=== PATIENT | female | born 1975 | race African-American/Black ===

== ENCOUNTER 2020-03-10 20:29 | Inpatient (IN) | payer MEDICARE, MEDICAID ==
[~2020-03-10] VITALS: Ht 154.9 cm; Wt 59.0 kg
[2020-03-11] VITALS (10 sets, daily range): BP systolic 103–144; BP diastolic 55–71
[2020-03-11] MEDS ORDERED: Albuterol 90mcg Inhaler 8gm INH PRN (00:45)
[2020-03-11] MEDS ORDERED: MORPHINE SULFAT60 M4 PO (01:16)
[2020-03-11] MEDS ORDERED: FOLIC ACID1 MG ORAL (01:16)
[2020-03-11] MEDS ORDERED: Cefepime 1gm vial ONE (01:49)
[2020-03-11] MEDS: DiphenhydrAMINE 50mg/ml Inj IVP PRN ×4 (01:55→21:28)
[2020-03-11] MEDS ORDERED: Cefepime HCl 1 GM in D5W 55 ML IVPB SCH (02:00)
--- NOTE | 2020-03-11 04:55 | NUR ---
NURSE NOTES: Received a patient as direct admit from [facility] transported by ambulance on [facility] with admitting diagnosis of sickle cell crisis and infected port-a-cath. She also is covid positive. Pt is alert, oriented x4 and ambulates steady. With port-a-cath on left upper chest per patient was placed about a year and a half ago. With IV access on the right forearm g. 22 saline locked. Report received by Charge nurse from [facility]. Belongings checked, patient wanted to keep her valuables at bedside. Med recon done. Patient wanted to get medicated for pain. Spoke with Dr. Fernandez, admission orders obtained and carried out. Per Dilmarcosid may be given IV push until pharmacy opens in AM and switch to IV piggy back. Charge nurse made aware. Oriented patient to the room. Placed on isolation precautions. Instructed patient to use call light for assistance. Bed in lowest and lock engaged. Will monitor.
[2020-03-11] MEDS ORDERED: Sterile Water Irrig 1000ml IRRIG ONE (06:00)
[2020-03-11] MEDS: Heparin 5000 units/ml inj SUBQ SCH ×3 (06:00→21:39)
[2020-03-11] MEDS ORDERED: HYDROmorphone 2 MG in NS 55ml IVPB PRN (07:30)
--- NOTE | 2020-03-11 07:38 | NUR ---
NURSE NOTES: Patient received from TRICE Abdi. Patient awake in bed, alert and oriented x 4, no SOB, bed in lowest position with breaks engaged and alarm on, denies any pain at this time, IV line present, on room air, on covid 19 isolation, THADDEUS kaden cath in place, pt is to receive blood transfusion today but per electronic scanner operator, unable to find vein for blood draw by electrician outside, will ff up, will continue to monitor and proceed with plan of care, call light within reach.
--- NOTE | 2020-03-11 07:42 | NUR ---
NURSE HAND-OFF: Important Events on Shift: admission, hardstick, pain mgt Patient Status: Diet: regular Pending Orders: Pending Results/Labs: Pending MD notification: Latest Vital Signs: Temperature 98.8 , Pulse 80 , B/P 103 /61 , Respiratory Rate 17 , O2 SAT 99 , , O2 Flow Rate 2.0 . Vital Sign Comment: Latest Whitt Fall Score: 35 Fall Risk: Medium Risk Safety Measures: Call light Within Reach, Bed Alarm Zone 1, Side Rails Side Rails x2, Bed position Low and Locked. Fall Precautions: Yellow Socks Report given to TRICE Govea.
--- NOTE | 2020-03-11 09:24 | Consultation ---
History of Present Illness General Date patient seen: Mar 11, 2020 Time patient seen: 12:21 Chief Complaint: Sickle cell crisis, port infection Referring physician: PCP Reason for Consultation: Infection Present Illness HPI 44yo F who p/w sickle cell pain crisis, c/f port infection for which ID is consulted. Allergies: Coded Allergies: No Known Allergies (Unverified , 03/11/20) Medication History Scheduled Folic Acid* (Folic Acid*), 1 MG ORAL DAILY, (Reported) Scheduled PRN Morphine Sulfate (Morphine Sulfate ER), 60 MG PO EVERY 12 HOURS PRN for Pain Scale (6-10), (Reported) Patient History Healthcare decision maker Resuscitation status Advanced Directive on File Review of Systems ROS Narrative 10-point ROS neg except as noted in HPI Physical Exam Physical Exam Narrative Gen: NAD HEENT: NCAT Pulm: BL chest rise on RA Abd: Non-distended Ext: No c/c/e Skin: No visible rashes Neuro: Awake, alert, interactive Lines: Chest Port non-TTP Last 24 Hour Vital Signs Date Time Temp Pulse Resp B/P (MAP) Pulse Ox O2 Delivery O2 Flow Rate FiO2 03/11/20 08:00 97.8 75 18 144/55 (84) 99 03/11/20 04:00 98.8 80 17 103/61 (75) 99 03/11/20 00:10 Nasal Cannula 2.0 03/11/20 00:00 96.8 89 17 127/71 (89) 100 Intake and Output 03/10/20 03/11/20 19:00 07:00 Intake Total 150 ml Balance 150 ml Intake Oral 150 ml # Voids 2 # Bowel Movements 1 Height (Feet): 5 Height (Inches): 2.00 Weight (Pounds): 132 Medications Current Medications Medications (Trade) Dose Ordered Sig/Baljeet Route PRN Reason Start Time Stop Time Status Last Admin Dose Admin Acetaminophen (Tylenol) 650 mg Q6H PRN ORAL Temp >100.5/ mild pain (1-3) 03/11/20 00:45 04/10/20 00:44 Albuterol Sulfate (Proventil MDI) 2 puff Q4H PRN INH Shortness of Breath 03/11/20 00:45 06/09/20 00:44 Cefepime HCl 1 gm/ Dextrose 55 ml @ 110 mls/hr Q12H IVPB 03/11/20 02:00 03/18/20 01:59 03/11/20 02:15 Chlorhexidine Gluconate (Tatiana-Hex 2%) 1 applic BEDTIME TOPIC 03/11/20 21:00 06/09/20 20:59 Diphenhydramine HCl (Benadryl) 50 mg Q6H PRN IVP Itching 03/11/20 00:45 04/10/20 00:44 03/11/20 08:23 Heparin Sodium (Porcine) (Heparin 5000 units/ml) 5,000 units EVERY 8 HOURS SUBQ 03/11/20 06:00 04/25/20 05:59 Hydromorphone HCl 2 mg/Sodium Chloride 56 ml @ 224 mls/hr Q4H PRN IVPB Moderate Pain (Pain Scale 4-6) 03/11/20 07:30 03/18/20 07:29 Hydromorphone HCl 4 mg/Sodium Chloride 57 ml @ 228 mls/hr Q4H PRN IVPB Severe Pain (Pain Scale 7-10) 03/11/20 07:30 03/18/20 07:29 Ondansetron HCl (Zofran) 4 mg EVERY 4 HOURS PRN IVP Nausea & Vomiting 03/11/20 00:45 04/10/20 00:44 Vancomycin HCl (Vanco pharmacy to dose) 1 ea DAILY PRN MISC Per rx protocol 03/11/20 00:45 04/10/20 00:44 Vancomycin HCl 1 gm/Dextrose 275 ml @ 183.708 mls/hr Q24H IVPB 03/11/20 21:00 03/16/20 20:59 Assessment/Plan Assessment/Plan: 44yo F with: Acinetobacter baumanii bacteremia Port infection, dx'd by her Heme/onc doctor at [facility], Dr. Sampson Lazaro (I spoke with him on the phone to obtain the following results) 01/07 BCx Acinetobacter pitti S-bactrim, levoflox, meropenem, gent, amikacin Was on levoflox then bactrim for this 02/05 BCx Acinetobacter baumanni complex 03/02 BCx Acinetobacter baumanni, S-amikacin, ant, minocycline Was on IV abx for this, then on minocycline COVID pneumonia Satting well on RA Afebrile 2/2 COVID PCR positive at [facility] neg CXR: Patchy bilateral infiltrates. Findings related to multifocal pneumonia. Clinical correlation and follow-up recommended. Sickle cell disease Anemia to 5s Plan: Stop empiric vanco/cefepime #1 Start meropenem to target Acinetobacter in prior BCx from [facility] Port needs removal DOROTHY given recurrent bacteremia with resistant organism - planning to remove today per RN Will need line holiday prior to insertion of any new permanent lines No current tx for COVID indicated given satting well on RA HIV screen F/u BCx BCx in AM after line removed TTE screening given recurrent bacteremia Monitor CBC/CMP Monitor temp curve, hemodynamics Monitor resp status COVID isolation D/w RN Thank you for this consult. [facility] will continue to follow. Rupali Herron M.D. Mar 11, 2020 09:24
--- NOTE | 2020-03-11 11:58 | History & Physical ---
History and Physical History & Physicial Dictated for Int Med-Dr Fernandez no. [id number] Roberth Swain MD Mar 11, 2020 11:58
--- NOTE | 2020-03-11 12:18 | Diagnostic Imaging Report ---
Indication: Cough Technique: XRAY Chest 1v Comparison: None Findings: Heart is enlarged. Mediastinal contours are sharp. There is an indwelling left chest wall Mediport with catheter tip at the cavoatrial junction. There are patchy bilateral infiltrates. No significant pleural effusion. No pneumothorax. No appreciable acute osseous abnormality. Impression: Cardiomegaly and indwelling left chest wall Mediport. Patchy bilateral infiltrates. Findings related to multifocal pneumonia. Clinical correlation and follow-up recommended.
--- NOTE | 2020-03-11 12:21 | Pre-Procedure Note/Attestation ---
Pre-Procedure Note/Attestation Complete Prior to Procedure Planned Procedure: left Procedure Narrative: removal of infected left chest wall port a cath Indications for Procedure Pre-Operative Diagnosis: infected left chest wall port a cath Attestation I attest that I discussed the nature of the procedure; its benefits; risks and complications; and alternatives (and the risks and benefits of such alternatives), prior to the procedure, with the patient (or the patient's legal community engagement representative). I attest that, if there was a reasonable possibility of needing a blood transfusion, the patient (or the patient's legal community engagement representative) was given the [facility] standardized written summary, pursuant to the [place] Blood Safety Act ([place] Health and Safety Code # 1645, as amended). I attest that I re-evaluated the patient just prior to the surgery and that there has been no change in the patient's H&P, except as documented below: David Farah Mar 11, 2020 12:21
--- NOTE | 2020-03-11 12:44 | History and Physical Report ---
DATE OF ADMISSION: 03/10/2020 CHIEF COMPLAINT: The patient is a 44-year-old female with history of sickle cell disease who presents with a chief complaint of infected Vedo-V-Racomkyl. HISTORY OF PRESENT ILLNESS: The patient has an approximate 2-week history of fevers and chills. The patient also had runny nose and body aches. The patient has a left Port-A-Cath in the chest wall for sickle cell treatment. The patient states that she was diagnosed with left Port-A-Cath infection. The patient has been treated as an outpatient with oral Bactrim. This was discontinued. The patient was then on what she thinks was either clindamycin or doxycycline. The patient has been treated by her primary care physician as an outpatient. The patient has refused to go to the hospital secondary to fear of elisa COVID-19. The patient initially presented to [facility] emergency room. The patient was found to be COVID-19 positive. The patient was transferred to [facility] for insurance purposes. The patient is admitted with infected Port-A-Cath of the left chest wall and COVID-19 positive. REVIEW OF SYSTEMS: CONSTITUTIONAL: The patient denies weight loss or weight gain. The patient complains of subjective fevers and chills as above. HEENT: The patient denies ear or throat pain. The patient denies headache. CARDIOVASCULAR: The patient denies palpitations or chest pain. CHEST: The patient denies wheeze or shortness of breath. ABDOMINAL: The patient denies nausea, vomiting, diarrhea, or constipation. GENITOURINARY: The patient denies dysuria or increased frequency of urination. NEUROMUSCULAR: The patient denies seizures or generalized weakness. PAST MEDICAL HISTORY: Significant for: 1. Sickle cell disease. 2. Sickle cell anemia. PAST SURGICAL HISTORY: The patient denies. CURRENT MEDICATIONS: 1. Folic acid 1 mg one tablet p.o. daily. 2. Morphine sulfate extended release 60 mg p.o.q.12 h. ALLERGIES: Bactrim reported as an allergy; however, patient states she was recently on Bactrim. SOCIAL HISTORY: The patient is single. The patient denies tobacco or alcohol use. PHYSICAL EXAMINATION: VITAL SIGNS: Temperature 98.4, respirations 18, pulse 105, blood pressure 120/71. GENERAL: The patient is well-developed and well-nourished female, in no apparent distress. HEENT: Eyes, pupils are equal and responsive to light and accommodation. Extraocular movements are intact. NECK: Supple without lymphadenopathy. CHEST: Lungs are clear to auscultation bilaterally without wheezes or rales. CARDIOVASCULAR: Regular rate. S1 and S2 are normal without murmurs, rubs, or gallops. ABDOMEN: Soft, nontender, nondistended. Positive bowel sounds. No evidence of hepatosplenomegaly. Currently, no rebound or guarding noted. EXTREMITIES: Negative for clubbing, cyanosis, or edema. RECTAL: Not performed. GENITAL: Not performed. NEUROLOGIC: Cranial nerves II through XII are grossly intact without focal deficits. Motor strength is 5/5 bilaterally. Deep tendon reflexes 2+ plantar. LABORATORY STUDIES: WBC 9.3, hemoglobin 5.2, hematocrit 16.7, platelets 352,000. Sodium 140, potassium 4.2 chloride 111, CO2 23, BUN 16, creatinine 1.43, glucose 80. Qualitative COVID-19 was positive at [place]. ASSESSMENT: This is a 44-year-old female: 1. Infected Port-A-Cath. 2. COVID-19 positive. 3. Severe sickle cell anemia. 4. Sickle cell crisis. TREATMENT: 1. Line sepsis. An Infectious Diseases consultation has been obtained with . The patient has been started empirically on intravenous vancomycin and cefepime. Follow recommendations of Infectious Diseases. Blood cultures are pending. The patient will require Port-A-Cath to be removed during this hospitalization. 2. Severe sickle cell anemia/sickle cell crisis. A Hematology/Oncology consultation has been obtained with Dr. Horne. The patient is currently receiving intravenous Dilaudid for pain control. Roberth Swain M.D. DR: Tyrone JOB#: [id number] CC:
--- NOTE | 2020-03-11 13:46 | Consultation ---
History of Present Illness General Date patient seen: Mar 11, 2020 Present Illness HPI Is a very pleasant 44-year-old female with sickle cell disease who presented to outside facility complaining of high fevers overnight recently noted to have infected Port-A-Cath as her primary national sales director from [facility]. Patient was transferred to [facility] for further care management given her insurance. Surgery was called to evaluate assist with care. Patient seen, [facility] [place], chart reviewed. Patient states that she has had sickle cell symptoms worsening. Times had multiple Port-A-Cath and IVs and currently cannot get peripheral lines anymore therefore Port-A-Cath was placed not too long ago. States blood cultures were taken from peripheral and the port and was identified to be growing from the Port-A-Cath and was recommended to have it removed. Recent significant and fevers and came in for evaluation. Seen by ID cultures were reviewed Case was discussed. Plan for port removal. Allergies: Coded Allergies: SULFAMETHOXAZOLE (Verified Allergy, Unknown, hives, 03/11/20) TRIMETHOPRIM (Verified Allergy, Unknown, hives, 03/11/20) COVID-19 Screening Contact w/high risk pt: Yes Experienced COVID-19 symptoms?: Yes Coronavirus symptoms experienc: Fever (T>100.4F or >38C), Runny Nose, Muscle or Body Aches Medication History Scheduled Folic Acid* (Folic Acid*), 1 MG ORAL DAILY, (Reported) Scheduled PRN Morphine Sulfate (Morphine Sulfate ER), 60 MG PO EVERY 12 HOURS PRN for Pain Scale (6-10), (Reported) Patient History History Provided By: Patient, Medical Record, PMD Healthcare decision maker Resuscitation status Advanced Directive on File Past Medical/Surgical History Past Medical/Surgical History: (1) Sickle cell crisis (2) Sickle cell crisis (3) infected portacath Review of Systems Review of Symptoms General ROS: no weight loss or fever Psychological ROS: no depression or mood changes, no memory loss Ophthalmic ROS: no visual changes or eye irritation ENT ROS: no nasal congestion, hearing loss, dizziness Allergy and Immunology ROS: no allergic symptoms or urticaria Hematological and Lymphatic ROS: no swollen glands, unusual bleeding or bruising Endocrine ROS: no polyuria, polydipsia, weight changes, temperature intolerance Respiratory ROS: no cough, shortness of breath, or wheezing Cardiovascular ROS: no chest pain or dyspnea on exertion Gastrointestinal ROS: denies abdominal pain, bright red blood in stool. Musculoskeletal ROS: no myalgias or arthralgias Neurological ROS: no TIA or stroke symptoms Dermatological ROS: no new or changing skin lesions, rashes or pruritis Physical Exam Physical Exam General appearance: alert, cooperative, no distress, appears stated age Head: Normocephalic, without obvious abnormality, atraumatic Eyes: conjunctivae/corneas clear. PERRL, EOM's intact. Fundi benign Throat: Lips, mucosa, and tongue normal. Teeth and gums normal Neck: supple, symmetrical, trachea midline, no adenopathy, thyroid: not enlarged, symmetric, no tenderness/mass/nodules, no carotid bruit and no JVD Lungs: clear to auscultation bilaterally Heart: regular rate and rhythm, S1, S2 normal, no murmur, click, rub or gallop Abdomen: soft, non-tender. Bowel sounds normal. No masses, no organomegaly Extremities: extremities normal, atraumatic, no cyanosis or edema Pulses: 2+ and symmetric Skin: Skin color, texture, turgor normal. No rashes or lesions Neurologic: Grossly normal Last 24 Hour Vital Signs Date Time Temp Pulse Resp B/P (MAP) Pulse Ox O2 Delivery O2 Flow Rate FiO2 03/11/20 12:00 97.8 93 18 130/69 (89) 100 03/11/20 09:00 Room Air 03/11/20 08:00 97.8 75 18 144/55 (84) 99 03/11/20 04:00 98.8 80 17 103/61 (75) 99 03/11/20 00:10 Nasal Cannula 2.0 03/11/20 00:00 96.8 89 17 127/71 (89) 100 Intake and Output 03/10/20 03/11/20 19:00 07:00 Intake Total 150 ml Balance 150 ml Intake Oral 150 ml # Voids 2 # Bowel Movements 1 Height (Feet): 5 Height (Inches): 1.00 Weight (Pounds): 130 Medications Current Medications Medications (Trade) Dose Ordered Sig/Baljeet Route PRN Reason Start Time Stop Time Status Last Admin Dose Admin Acetaminophen (Tylenol) 650 mg Q6H PRN ORAL Temp >100.5/ mild pain (1-3) 03/11/20 00:45 04/10/20 00:44 Albuterol Sulfate (Proventil MDI) 2 puff Q4H PRN INH Shortness of Breath 03/11/20 00:45 06/09/20 00:44 Chlorhexidine Gluconate (Tatiana-Hex 2%) 1 applic BEDTIME TOPIC 03/11/20 21:00 06/09/20 20:59 Diphenhydramine HCl (Benadryl) 50 mg Q6H PRN IVP Itching 03/11/20 00:45 04/10/20 00:44 03/11/20 08:23 Heparin Sodium (Porcine) (Heparin 5000 units/ml) 5,000 units EVERY 8 HOURS SUBQ 03/11/20 06:00 04/25/20 05:59 Hydromorphone HCl 2 mg/Sodium Chloride 56 ml @ 224 mls/hr Q4H PRN IVPB Moderate Pain (Pain Scale 4-6) 03/11/20 07:30 03/18/20 07:29 Hydromorphone HCl 4 mg/Sodium Chloride 57 ml @ 228 mls/hr Q4H PRN IVPB Severe Pain (Pain Scale 7-10) 03/11/20 07:30 03/18/20 07:29 Meropenem 2 gm/ Sodium Chloride 55 ml @ 110 mls/hr Q8HR IVPB 03/11/20 14:00 03/16/20 13:59 Ondansetron HCl (Zofran) 4 mg EVERY 4 HOURS PRN IVP Nausea & Vomiting 03/11/20 00:45 04/10/20 00:44 Assessment/Plan Problem List: (1) Sickle cell crisis ICD Codes: D57.00 - Hb-SS disease with crisis, unspecified SNOMED: [id number] (2) infected portacath Assessment & Plan: 44-year-old female with infected implanted left chest wall port. Cultures were taken by her national sales director and doctors who are reviewed by her infectious these doctors and discussed me as well. Infection grew from the port. Port does need to be removed patient recent fevers and being somatic. Plan for port removal. Will likely need temporary line in the meantime given her requirements. Long discussion at the bedside with patient. Consent obtained. We will plan for port removal. Thank you will follow recommendations (3) Sickle cell crisis David Farah Mar 11, 2020 13:46
--- NOTE | 2020-03-11 13:51 | NUR ---
NURSE NOTES: IV insertion attempted multiple times, unsuccessful. Also per phlebotomists, pt is a very hard stick and they were unable to get blood. Will continue to ff up and try insertion. is aware.
--- NOTE | 2020-03-11 14:50 | NUR ---
CASE MANAGEMENT:REVIEW TRANSFERRED FROM [facility] PMH: SICKLE CELL DISEASE CC: BODY ACHES. RUNNY NOSE SI: SICKLE CELL CRISIS. INFECTED RACHNA CATH COVID POSITIVE 96.8 89 17 127/71 100% ON 2L/NC IS: CONSENT FOR REMOVAL OF INFECTED LT CHEST RACHNA CATH IV CEFEPIME Q12 IV DILAUDID Q4HRS PRN : TO MED/SURG UNIT
[2020-03-11] MEDS ORDERED: Heparin 1000 units/ml 1ml Vial ONE (15:08)
[2020-03-11] MEDS ORDERED: Bacitracin 50000 Units Vial ONE (15:09)
--- NOTE | 2020-03-11 15:13 | Consultation ---
Consult Note Consult Note DATE OF CONSULTATION: 03/11/2020 CONSULTING PHYSICIAN: Louis Chambers MD. ATTENDING PHYSICIAN: Dr. Fernandez REASON FOR CONSULTATION: COVID-19 pneumonia HISTORY OF PRESENT ILLNESS: This is a 44-year-old female with past medical history of sickle cell disease who was transferred from [place] for insurance purposes. It was reported that she went to [place] for evaluation of runny nose and body aches. She reports having a left Port-A-Cath in the chest wall for sickle cell treatment. Patient states that she was diagnosed with left Port-A-Cath infection. Patient has been treated as an outpatient with oral Bactrim which was discontinued. Patient then was on another antibiotic, either clindamycin or doxycycline. Patient tested positive for COVID-19 when she went to [facility] emergency room. Patient is now admitted with infected Port-A-Cath of the left chest wall and COVID-19. Her chest x-ray is notable for patchy bilateral infiltrates. She reported that she had fever a few days ago. PAST MEDICAL HISTORY: Sickle cell disease, sickle cell anemia MEDICATIONS: Folate acid, morphine ALLERGIES: Sulfamethoxazole/trimethoprim FAMILY HISTORY: Unknown REVIEW OF SYSTEMS: Negative except mentioned in HPI PHYSICAL EXAMINATION: VITAL SIGNS: Blood pressure 130/69, heart rate 93, respiratory rate 18, weight 59 kg, height 2 155 cm General: Patient sitting up in bed getting IV access by a nurse, not in respiratory distress at the moment on room air HEENT: Head exam reveals that the head is normocephalic, atraumatic without deformity or unusual swelling. Right hazy eye CHEST AND LUNGS: Reveals clear, normal, symmetrical breath sounds with no adventitious sounds. CARDIOVASCULAR: Reveals normal S1, S2 without murmurs, rubs, or clicks. ABDOMEN: Soft with no tenderness or organomegaly. RECTAL: Deferred. MUSCULOSKELETAL: There is no tenderness to palpation. Range of motion is normal. NEUROLOGICAL: Alert and oriented x3 , nonfocal LABORATORY DATA: lab data not available at this time. Assessment/Plan 1. COVID-19 pneumonia; COVID-19 positive 03/10/20 at [place] -Patient is currently afebrile and normoxemic on room air -Patient was briefly given low flow oxygen via nasal cannula overnight -Monitor for hypoxia and provide supplemental oxygen as needed -At this time, no indication for specific therapy for COVID-19 2. Sickle cell disease sickle cell anemia -Per primary MD and ID specialist - s/p transfusion 3. Port infection -ID following The care for this patient was discussed with my supervising physician. Time spent for this case was approximately 31 minutes. Lior Hong Mar 11, 2020 15:13
--- NOTE | 2020-03-11 15:17 | Anethesia Preoperative Eval ---
Anesthesia Pre-op PMH/ROS General Date of Evaluation: Mar 11, 2020 Time of Evaluation: 16:00 Anesthesiologist: crys ASA Score: ASA 2 Mallampati Score Class I : Soft palate, uvula, fauces, pillars visible Class II: Soft palate, uvula, fauces visible Class III: Soft palate, base of uvula visible Class IV: Only hard plate visible Mallampati Classification: Class II Surgeon: Sofi Diagnosis: Infected kaden-cath Surgical Procedure: Removal of kaden-cath Anesthesia History: none Social History: alcohol use Family History: no anesthesia problems Allergies: Coded Allergies: SULFAMETHOXAZOLE (Verified Allergy, Unknown, hives, 03/11/20) TRIMETHOPRIM (Verified Allergy, Unknown, hives, 03/11/20) Medications: see eMAR Patient NPO?: Yes NPO Date: Mar 11, 2020 NPO Time: 00:01 Past Medical History Cardiovascular: Denies: HTN, CAD, [place], valve dz, arrhythmia, other Pulmonary: Reports: other - covid positive; Denies: asthma, COPD, [place] Gastrointestinal/Genitourinary: Denies: GERD, CRI, ESRD, other Neurologic/Psychiatric: Denies: dementia, CVA, depression/anxiety, TIA, other Endocrine: Denies: DM, hypothyroidism, steroids, other HEENT: Denies: cataract (L), cataract (R), glaucoma, [place] (L[place] (R), other Hematology/Immune: Reports: anemia; Denies: DVT, bleeding disorder, other Musculoskeletal/Integumentary: Reports: other - sickle cell ; Denies: OA, RA, DJD, DDD, edema PMH Narrative: 1. Infected Port-A-Cath. 2. COVID-19 positive. 3. Severe sickle cell anemia. 4. Sickle cell crisis. Anesthesia Pre-op Phys. Exam Physician Exam Last Vital Signs Date Time Temp Pulse Resp B/P (MAP) Pulse Ox O2 Delivery O2 Flow Rate FiO2 03/11/20 12:00 97.8 93 18 130/69 (89) 100 03/11/20 09:00 Room Air 03/11/20 00:10 2.0 Constitutional: NAD Neurologic: CN 2-12 intact Cardiovascular: RRR Respiratory: CTA Gastrointestinal: S/NT/ND Airway Exam Mallampati Classification 2 Mallampati Score: Class II MO: full ROM: full Dentures: no upper, no lower Anesthesia Pre-op A/P Studies Pre-op Studies: EKG - sr Risk Assessment & Plan Assessment: covid post; preg neg Plan: mac Status Change Before Surgery: No Pre-Antibiotics Drug: declined by surgeon Helen Mccord CRNA Mar 11, 2020 15:17
[2020-03-11] MEDS: NS IVPB PRN ×2 (15:18→20:40)
[2020-03-11] MEDS: HYDROMORPHONE IVPB PRN ×2 (15:18→20:40)
[2020-03-11] MEDS: Meropenem 2 GM in NS 55 ML IVPB SCH ×2 (15:18→21:42)
[2020-03-11] MEDS ORDERED: Midazolam 2mg/2ml Inj ONE (15:27)
[2020-03-11] MEDS ORDERED: Ketamine 500mg/10ml vial ONE (15:27)
[2020-03-11] MEDS ORDERED: Bacitracin Oint 15gm Tube TOPIC ONE (15:40)
[2020-03-11] MEDS ORDERED: Bupivacaine w/Epi 0.25% 50ml vial INJ ONE (16:18)
[2020-03-11] MEDS ORDERED: NS Irrig 1000ml IRRIG ONE (16:18)
--- NOTE | 2020-03-11 16:49 | NUR ---
NURSE NOTES: A recovery coach attempted another blood draw at around 1530 and unsuccessful, dr woodall notified.
--- NOTE | 2020-03-11 16:52 | NUR ---
NURSE NOTES: Pt left for port a cath removal at around 1600 in stable condition. Still no blood draw at this time, per therapeutic case manager Hector, will try again when she gets back to the unit.
--- NOTE | 2020-03-11 16:57 | Brief Operative Note ---
Immediate Post Operative Note Operative Note Pre-op Diagnosis: infected left chest wall port a cath Procedure: 1. removal of infected left chest wall port 2. central venous catheter insertion Post-op Diagnosis: same as pre-op plus - covid + Surgeon: patricia farah Anesthesiologist: meka leyva Anesthesia: local, moderate sedation Specimen: yes Complications: none Condition: stable Fluids: see Estimated Blood Loss: minimal Drains: none Implant(s) used?: No Patricia Farah Mar 11, 2020 16:57
--- NOTE | 2020-03-11 17:08 | Immediate Post-Op Evaluation ---
Immediate Post-Op Evalulation Immediate Post-Op Evalulation Procedure: removal of infected kaden cath Date of Evaluation: Mar 11, 2020 Time of Evaluation: 17:00 IV Fluids: 250 Blood Pressure Systolic: 120 Blood Pressure Diastolic: 70 Pulse Rate: 88 Respiratory Rate: 14 O2 Sat by Pulse Oximetry: 98 Temperature (Fahrenheit): 97.0 Nausea: No Vomiting: No Complications none Patient Status: awake, reacts, patent Hydration Status: adequate Drug: declined Helen Mccord CRNA Mar 11, 2020 17:08
[2020-03-11] MEDS ORDERED: fentaNYL 100 mcg/2 mL IV PRN (17:15)
[2020-03-11] MEDS ORDERED: Metoclopramide 10mg/2ml Inj IVP PRN (17:15)
[2020-03-11] MEDS ORDERED: Hydromorphone 0.5mg/0.5ml inj IVP PRN (17:15)
--- NOTE | 2020-03-11 17:17 | 48 Hour Post Anesthesia Eval ---
Post Anesthesia Evaluation Procedure: removal of infected kaden cath Date of Evaluation: Mar 11, 2020 Time of Evaluation: 17:17 Blood Pressure Systolic: 119 0: 64 Pulse Rate: 70 Respiratory Rate: 14 O2 Sat by Pulse Oximetry: 98 Airway: patent Nausea: No Vomiting: No Hydration Status: adequate Mental Status/LOC: patient returned to baseline Follow-up Care/Observations: na Post-Anesthesia Complications: none Follow-up care needed: N/A Helen Mccord CRNA Mar 11, 2020 17:17
--- NOTE | 2020-03-11 18:14 | Operative Note - Dictated ---
DATE OF OPERATION: 03/11/2020 PREOPERATIVE DIAGNOSES: 1. Infected left chest wall port. 2. COVID positive. 3. Fever. POSTOPERATIVE DIAGNOSES: 1. Infected left chest wall port. 2. COVID positive. 3. Fever. OPERATION PERFORMED: 1. Removal of infected left chest wall implanted port tunnel device. 2. Insertion of right femoral temporary central venous access catheter. ATTENDING SURGEON: David Farah MD. BELLSTAND ATTENDANT: None. ANESTHESIOLOGIST: Helen Mccord CRNA. ANESTHESIA: MAC plus local. ESTIMATED BLOOD LOSS: Minimal. IV FLUIDS: Please see anesthesia records. COMPLICATIONS: None. DRAINS: None. COUNTS: Sponge and needle count correct x2. WOUND CLASSIFICATION: Class 3. SPECIMENS: 1. Infected left chest wall port. 2. Infected left chest wall port capsule. INDICATIONS FOR PROCEDURE: A 44-year-old female with sickle cell disease, who has had multiple lines and ports in the past before. She states she has had ports on the right side, which has been infected recently, not too long ago had a port on the left side placed and has been developing fevers. Blood cultures performed by her primary care physician/treating physician and forest nursery supervisor, who identified bacterial growth from the port and therefore given her fevers it was recommended for removal, and the patient was subsequently scheduled, but unfortunately began to have worsening fevers and went outside facility for evaluation, identified to be COVID positive, transferred to [facility] for care. When the patient was seen, examined, and case was discussed with primary care physician as well as the Infectious Disease doctor and the cultures were reviewed and it was clearly identified that port was infected and given these findings, port removal was indicated and recommended. Furthermore, the patient does not have prophylaxis, prophylaxis was extremely difficult in her where blood draws, anemia, potential transfusion, medications indicated and recommended, therefore, discussed with the patient line placement and plan for temporary central venous catheter insertion with plan for long-term line prior to discharge, but with temporary line holiday given her infected port. Consent was obtained. The patient was scheduled for 03/11/2020. OPERATIVE NOTE: The patient was taken to the operating room and placed on the operating table in supine position. All bony prominences well padded. SCDs placed. Preoperative time-out was taken identifying the patient, procedure, operative staff, and surgical staff. All COVID precautions were taken. Anesthesia was provided by the anesthesiologist. The patient was made significantly comfortable. Prior to removal of the port, we placed a right femoral central venous catheter. Right groin was prepped in the standard surgical fashion. Local anesthetic was infiltrated. The right vein was cannulated without complication on first stick. Good venous flow identified. A guidewire placed over the needle and needle removed. A small skin incision was made around the guidewire and guidewire was left in place. Dilator was used and tract was dilated. Triple-lumen catheter was inserted over the guidewire and guidewire was removed and discarded appropriately. All three ports of the catheter flushed and aspirated appropriately without complication. Catheter was sutured in place. Dressings were applied. The patient tolerated this procedure well without complication. We then turned our attention to the port. The left chest wall port was prepped and draped in standard surgical fashion. Local anesthetic was infiltrated. Prior incision was utilized to make an incision. The port was identified. The port was circumferentially dissected out and clearly identified to have a capsule formed around it and the Prolene sutures were identified. Prolene sutures were cut. Port was removed and pressure was held on the left internal jugular vein until hemostasis identified. A 2-0 Vicryl suture was placed around the port site catheter to ensure no bleeding into the port site cavity. Following this, the capsule was excised in whole and sent to pathology for review along with the port. Hemostasis was obtained with electrocautery. The bed irrigated and suctioned clean. Now, there is a completely new cavity, decision was made to reapproximate. were used and the skin was reapproximated. The skin incision was reapproximated using 4-0 Monocryl subcuticular interrupted suture. Dressings applied. The patient tolerated the procedure well and was taken to postanesthesia care unit in stable condition. David Farah M.D. DR: DC JOB#: [id number] CC:
[2020-03-11 18:15] LABS: HEMATOCRIT 15.8 % (37.0-47.0); MEAN CORPUSCULAR VOLUME 103 FL (80-99); PLATELET COUNT 309 K/UL (150-450); RED BLOOD COUNT 1.53 M/UL (4.20-5.40); RED CELL DISTRIBUTION WIDTH 20.3 % (11.6-14.8); WHITE BLOOD COUNT 15.2 K/UL (4.8-10.8)
--- NOTE | 2020-03-11 18:30 | NUR ---
NURSE NOTES: Digital Strategy Director able to draw blood at 1800, awaiting type and cross results. Pt Hgb level at 5.0 Dr. Fernandez made aware.
[2020-03-11 18:31] LABS: ALANINE AMINOTRANSFERASE 13 U/L (12-78); ALBUMIN 2.3 G/DL (3.4-5.0); ALBUMIN/GLOBULIN RATIO 0.6 (1.0-2.7); ALKALINE PHOSPHATASE 59 U/L (46-116); ANION GAP 6 mmol/L (5-15); ASPARTATE AMINO TRANSFERASE 31 U/L (15-37); BILIRUBIN,TOTAL 1.8 MG/DL (0.2-1.0); BLOOD UREA NITROGEN 10 mg/dL (7-18); CARBON DIOXIDE 24 MMOL/L (21-32); CHLORIDE 111 MMOL/L (98-107); CREATININE 0.9 MG/DL (0.55-1.30); PHOSPHORUS 3.1 MG/DL (2.5-4.9); POTASSIUM 4.2 MMOL/L (3.5-5.1); SODIUM 141 MMOL/L (136-145)
[2020-03-11 18:52] LABS: BILIRUBIN,DIRECT 0.5 MG/DL (0.0-0.3)
--- NOTE | 2020-03-11 19:23 | NUR ---
NURSE HAND-OFF: Important Events on Shift:[pending blood transfusion, pain management, monitoring labs and VS] Patient Status: [stable] Diet: [regular] Pending Orders: [] Pending Results/Labs:[] Pending MD notification:[] Latest Vital Signs: Temperature 97.8 , Pulse 70 , B/P 119 /64 , Respiratory Rate 14 , O2 SAT 98 , Nasal Cannula, O2 Flow Rate 3 . Vital Sign Comment: [] Latest Whitt Fall Score: 35 Fall Risk: Medium Risk Safety Measures: Call light Within Reach, Bed Alarm Zone 1, Side Rails Side Rails x2, Bed position Low and Locked. Fall Precautions: Yellow Socks Report given to [TRICE Don].
[2020-03-11] MEDS ORDERED: Vancomycin 1gm/D5W 275ml IVPB SCH ×2 (21:00)
[2020-03-11] MEDS: Dyna-Hex 2% Top Sol 2oz TOPIC SCH (21:04)
--- NOTE | 2020-03-11 23:35 | NUR ---
NURSE NOTES: 1st unit blood transfusion started 0, current VSS, patient awake and tolerating well.
[2020-03-12] VITALS: BP 115/67
[2020-03-12] MEDS: NS IVPB PRN ×4 (01:28→23:37)
[2020-03-12] MEDS: HYDROMORPHONE IVPB PRN ×4 (01:28→23:37)
[2020-03-12 04:00] VITALS: BP 103/58
[2020-03-12] MEDS: DiphenhydrAMINE 50mg/ml Inj IVP PRN ×4 (05:30→23:37)
[2020-03-12] MEDS: Meropenem 2 GM in NS 55 ML IVPB SCH ×3 (05:30→23:06)
[2020-03-12] MEDS: Heparin 5000 units/ml inj SUBQ SCH ×3 (05:47→23:16)
--- NOTE | 2020-03-12 06:41 | Consultation ---
History of Present Illness General Referring physician: PCP Reason for Consultation: Infection Present Illness Allergies: Coded Allergies: SULFAMETHOXAZOLE (Verified Allergy, Unknown, hives, 03/11/20) TRIMETHOPRIM (Verified Allergy, Unknown, hives, 03/11/20) Medication History Scheduled Folic Acid* (Folic Acid*), 1 MG ORAL DAILY, (Reported) Scheduled PRN Morphine Sulfate (Morphine Sulfate ER), 60 MG PO EVERY 12 HOURS PRN for Pain Scale (6-10), (Reported) Patient History Healthcare decision maker Resuscitation status Advanced Directive on File Physical Exam Last 24 Hour Vital Signs Date Time Temp Pulse Resp B/P (MAP) Pulse Ox O2 Delivery O2 Flow Rate FiO2 03/12/20 06:01 98.9 03/12/20 04:00 98.7 73 20 103/58 (73) 98 03/12/20 01:58 98.9 03/12/20 00:00 98.9 84 18 115/67 (83) 98 03/11/20 21:10 97.8 03/11/20 21:08 Room Air 03/11/20 20:00 99.0 81 18 117/60 (79) 100 03/11/20 17:17 70 14 98 03/11/20 17:12 97.8 84 16 112/63 100 Nasal Cannula 3 03/11/20 17:08 88 14 98 03/11/20 17:02 88 20 118/65 100 Nasal Cannula 3 03/11/20 16:57 89 19 119/64 100 Simple Mask 6 03/11/20 16:52 97.9 89 19 120/70 100 Simple Mask 6 03/11/20 16:07 99.5 03/11/20 16:00 101.7 99 18 132/69 (90) 100 03/11/20 15:48 101.7 03/11/20 12:00 97.8 93 18 130/69 (89) 100 03/11/20 09:00 Room Air 03/11/20 08:00 97.8 75 18 144/55 (84) 99 Intake and Output 03/11/20 03/12/20 19:00 07:00 Intake Total 780 ml Output Total 10 ml Balance 770 ml Intake Oral 480 ml IV Total 300 ml Output Estimated Blood Loss 10 ml # Voids 1 1 Laboratory Tests Test 03/11/20 17:45 White Blood Count 15.2 K/UL (4.8-10.8) H Red Blood Count 1.53 M/UL (4.20-5.40) L Hemoglobin 5.0 G/DL (12.0-16.0) *L Hematocrit 15.8 % (37.0-47.0) L Mean Corpuscular Volume 103 FL (80-99) H Mean Corpuscular Hemoglobin 32.4 PG (27.0-31.0) H Mean Corpuscular Hemoglobin Concent 31.3 G/DL (32.0-36.0) L Red Cell Distribution Width 20.3 % (11.6-14.8) H Platelet Count 309 K/UL (150-450) Mean Platelet Volume 7.2 FL (6.5-10.1) Neutrophils (%) (Auto) % (45.0-75.0) Lymphocytes (%) (Auto) % (20.0-45.0) Monocytes (%) (Auto) % (1.0-10.0) Eosinophils (%) (Auto) % (0.0-3.0) Basophils (%) (Auto) % (0.0-2.0) Differential Total Cells Counted 100 Neutrophils % (Manual) 71 % (45-75) Lymphocytes % (Manual) 24 % (20-45) Monocytes % (Manual) 1 % (1-10) Eosinophils % (Manual) 4 % (0-3) H Basophils % (Manual) 0 % (0-2) Band Neutrophils 0 % (0-8) Platelet Estimate Increased H Platelet Morphology Normal Hypochromasia 3+ Anisocytosis 3+ Sodium Level 141 MMOL/L (136-145) Potassium Level 4.2 MMOL/L (3.5-5.1) Chloride Level 111 MMOL/L (98-107) H Carbon Dioxide Level 24 MMOL/L (21-32) Anion Gap 6 mmol/L (5-15) Blood Urea Nitrogen 10 mg/dL (7-18) Creatinine 0.9 MG/DL (0.55-1.30) Estimat Glomerular Filtration Rate > 60 mL/min (>60) Glucose Level 86 MG/DL (74-106) Calcium Level 7.0 MG/DL (8.5-10.1) L Phosphorus Level 3.1 MG/DL (2.5-4.9) Magnesium Level 1.7 MG/DL (1.8-2.4) L Total Bilirubin 1.8 MG/DL (0.2-1.0) H Direct Bilirubin 0.5 MG/DL (0.0-0.3) H Aspartate Amino Transf (AST/SGOT) 31 U/L (15-37) Alanine Aminotransferase (ALT/SGPT) 13 U/L (12-78) Alkaline Phosphatase 59 U/L (46-116) Total Protein 6.1 G/DL (6.4-8.2) L Albumin 2.3 G/DL (3.4-5.0) L Globulin 3.8 g/dL Albumin/Globulin Ratio 0.6 (1.0-2.7) L Human Chorionic Gonadotropin, Quant 1 mIU/mL (1-6) HIV (1&2) Antibody Rapid Pending Height (Feet): 5 Height (Inches): 1.00 Weight (Pounds): 130 Medications Current Medications Medications (Trade) Dose Ordered Sig/Baljeet Route PRN Reason Start Time Stop Time Status Last Admin Dose Admin Acetaminophen (Tylenol) 650 mg Q6H PRN ORAL Temp >100.5/ mild pain (1-3) 03/11/20 00:45 04/10/20 00:44 03/11/20 15:36 Albuterol Sulfate (Proventil MDI) 2 puff Q4H PRN INH Shortness of Breath 03/11/20 00:45 06/09/20 00:44 Chlorhexidine Gluconate (Tatiana-Hex 2%) 1 applic BEDTIME TOPIC 03/11/20 21:00 06/09/20 20:59 03/11/20 21:04 Diphenhydramine HCl (Benadryl) 50 mg Q6H PRN IVP Itching 03/11/20 00:45 04/10/20 00:44 03/12/20 05:30 Heparin Sodium (Porcine) (Heparin 5000 units/ml) 5,000 units EVERY 8 HOURS SUBQ 03/11/20 06:00 04/25/20 05:59 03/12/20 05:47 Hydromorphone HCl 2 mg/Sodium Chloride 56 ml @ 224 mls/hr Q4H PRN IVPB Moderate Pain (Pain Scale 4-6) 03/11/20 07:30 03/18/20 07:29 03/12/20 05:31 Hydromorphone HCl 4 mg/Sodium Chloride 57 ml @ 228 mls/hr Q4H PRN IVPB Severe Pain (Pain Scale 7-10) 03/11/20 07:30 03/18/20 07:29 03/12/20 01:28 Meropenem 2 gm/ Sodium Chloride 55 ml @ 110 mls/hr Q8HR IVPB 03/11/20 14:00 03/16/20 13:59 03/12/20 05:30 Ondansetron HCl (Zofran) 4 mg EVERY 4 HOURS PRN IVP Nausea & Vomiting 03/11/20 00:45 04/10/20 00:44 Assessment/Plan Assessment/Plan: Hematology Consultation DATE OF CONSULTATION: 03/12/2020 ATTENDING PHYSICIAN: Dr. Fernandez [facility]: Sickle cell anemia HISTORY OF PRESENT ILLNESS: This is a 44-year-old female with past medical history of sickle cell disease who was transferred from [place] for insurance purposes. It was reported that she went to [place] for evaluation of runny nose and body aches. She reports having a left Port-A-Cath in the chest wall for sickle cell treatment. Patient states that she was diagnosed with left Port-A-Cath infection. Patient has been treated as an outpatient with oral Bactrim which was discontinued. Patient then was on another antibiotic, either clindamycin or doxycycline. Sofi has removed portocath. Patient tested positive for COVID-19 when she went to [facility] emergency room. Patient is now admitted with infected Port-A-Cath of the left chest wall and COVID-19. Her chest x-ray is notable for patchy bilateral infiltrates. She reported that she had fever a few days ago. PAST MEDICAL HISTORY: Sickle cell disease, sickle cell anemia MEDICATIONS: Folate acid, morphine ALLERGIES: Sulfamethoxazole/trimethoprim FAMILY HISTORY: Unknown REVIEW OF SYSTEMS: Negative except mentioned in HPI PHYSICAL EXAMINATION: VITAL SIGNS: Blood pressure 130/69, heart rate 93, respiratory rate 18, weight 59 kg, height 2 155 cm General: Patient sitting up in bed getting IV access by a nurse, not in respiratory distress at the moment on room air HEENT: Head exam reveals that the head is normocephalic, atraumatic without deformity or unusual swelling. Right hazy eye CHEST AND LUNGS: Reveals clear, normal, symmetrical breath sounds with no adventitious sounds. CARDIOVASCULAR: Reveals normal S1, S2 without murmurs, rubs, or clicks. ABDOMEN: Soft with no tenderness or organomegaly. RECTAL: Deferred. MUSCULOSKELETAL: There is no tenderness to palpation. Range of motion is normal. NEUROLOGICAL: Alert and oriented x3 , nonfocal LABORATORY DATA: reviewed Imaging: noted Assessment/Plan # Sickle cell disease sickle cell anemia --> hgb 5 --> s/p transfusion --> will obtain anemia panel --> for sickle cell, r/o hemolysis, confirm sickle cell and obtain ldh, hapto, retic --> transfuse as needed --> outpatient heme --> dilaudid for pain control # Leukocytosis due to COVID-19 pneumonia; COVID-19 positive 03/10/20 at [place] -> Patient is currently afebrile and normoxemic on room air --> Patient was briefly given low flow oxygen via nasal cannula overnight --> Monitor for hypoxia and provide supplemental oxygen as needed --> per pulm --> wbc 16 # Port infection --> ID following --> Carlosmini has removed # Dehydration --> goal euvolemia # Dvt ppx heparin sq Appreciate consultation and dw rn Redd Horne MD Mar 12, 2020 06:41
--- NOTE | 2020-03-12 07:30 | NUR ---
NURSE NOTES: Patient is in bed asleep. Stable. Breathing is even and unlabored. No visible signs of distress noted. All safety measures provided. Patient is in bed in locked and lowest position. Will continue plan of care.
[2020-03-12 08:00] VITALS: BP 113/60
--- NOTE | 2020-03-12 08:28 | Surgery Progress Note ---
Surgery Progress Note Subjective Procedure Performed 1. removal of infected left chest wall port 2. central venous catheter insertion Additional Comments Febrile overnight HD stable labs noted comfortable appearing no n/v dressings changed Case discussed with ID. plan for IV Abx for next few days given micro. then will remove femoral central line and place PICC Monday Objective Last 24 Hour Vital Signs Date Time Temp Pulse Resp B/P (MAP) Pulse Ox O2 Delivery O2 Flow Rate FiO2 03/12/20 06:01 98.9 03/12/20 04:00 98.7 73 20 103/58 (73) 98 03/12/20 01:58 98.9 03/12/20 00:00 98.9 84 18 115/67 (83) 98 03/11/20 21:10 97.8 03/11/20 21:08 Room Air 03/11/20 20:00 99.0 81 18 117/60 (79) 100 03/11/20 17:17 70 14 98 03/11/20 17:12 97.8 84 16 112/63 100 Nasal Cannula 3 03/11/20 17:08 88 14 98 03/11/20 17:02 88 20 118/65 100 Nasal Cannula 3 03/11/20 16:57 89 19 119/64 100 Simple Mask 6 03/11/20 16:52 97.9 89 19 120/70 100 Simple Mask 6 03/11/20 16:07 99.5 03/11/20 16:00 101.7 99 18 132/69 (90) 100 03/11/20 15:48 101.7 03/11/20 12:00 97.8 93 18 130/69 (89) 100 03/11/20 09:00 Room Air I&O Intake and Output 03/11/20 03/12/20 19:00 07:00 Intake Total 780 ml Output Total 10 ml Balance 770 ml Intake Oral 480 ml IV Total 300 ml Output Estimated Blood Loss 10 ml # Voids 1 1 Dressing: dry Wound: clean Cardiovascular: RSR Respiratory: clear Abdomen: soft, non-tender, present bowel sounds Extremities: no edema, no tenderness, no cyanosis Laboratory Tests Test 03/11/20 17:45 White Blood Count 15.2 K/UL (4.8-10.8) H Red Blood Count 1.53 M/UL (4.20-5.40) L Hemoglobin 5.0 G/DL (12.0-16.0) *L Hematocrit 15.8 % (37.0-47.0) L Mean Corpuscular Volume 103 FL (80-99) H Mean Corpuscular Hemoglobin 32.4 PG (27.0-31.0) H Mean Corpuscular Hemoglobin Concent 31.3 G/DL (32.0-36.0) L Red Cell Distribution Width 20.3 % (11.6-14.8) H Platelet Count 309 K/UL (150-450) Mean Platelet Volume 7.2 FL (6.5-10.1) Neutrophils (%) (Auto) % (45.0-75.0) Lymphocytes (%) (Auto) % (20.0-45.0) Monocytes (%) (Auto) % (1.0-10.0) Eosinophils (%) (Auto) % (0.0-3.0) Basophils (%) (Auto) % (0.0-2.0) Differential Total Cells Counted 100 Neutrophils % (Manual) 71 % (45-75) Lymphocytes % (Manual) 24 % (20-45) Monocytes % (Manual) 1 % (1-10) Eosinophils % (Manual) 4 % (0-3) H Basophils % (Manual) 0 % (0-2) Band Neutrophils 0 % (0-8) Platelet Estimate Increased H Platelet Morphology Normal Hypochromasia 3+ Anisocytosis 3+ Sodium Level 141 MMOL/L (136-145) Potassium Level 4.2 MMOL/L (3.5-5.1) Chloride Level 111 MMOL/L (98-107) H Carbon Dioxide Level 24 MMOL/L (21-32) Anion Gap 6 mmol/L (5-15) Blood Urea Nitrogen 10 mg/dL (7-18) Creatinine 0.9 MG/DL (0.55-1.30) Estimat Glomerular Filtration Rate > 60 mL/min (>60) Glucose Level 86 MG/DL (74-106) Calcium Level 7.0 MG/DL (8.5-10.1) L Phosphorus Level 3.1 MG/DL (2.5-4.9) Magnesium Level 1.7 MG/DL (1.8-2.4) L Total Bilirubin 1.8 MG/DL (0.2-1.0) H Direct Bilirubin 0.5 MG/DL (0.0-0.3) H Aspartate Amino Transf (AST/SGOT) 31 U/L (15-37) Alanine Aminotransferase (ALT/SGPT) 13 U/L (12-78) Alkaline Phosphatase 59 U/L (46-116) Total Protein 6.1 G/DL (6.4-8.2) L Albumin 2.3 G/DL (3.4-5.0) L Globulin 3.8 g/dL Albumin/Globulin Ratio 0.6 (1.0-2.7) L Human Chorionic Gonadotropin, Quant 1 mIU/mL (1-6) HIV (1&2) Antibody Rapid Pending Plan Problems: (1) Sickle cell crisis (2) infected portacath Assessment & Plan: 44-year-old female with infected implanted left chest wall port. Cultures were taken by her instructional technology coordinator and doctors who are reviewed by her infectious these doctors and discussed me as well. Infection grew from the port. Port does need to be removed patient recent fevers and being somatic. Plan for port removal. Will likely need temporary line in the meantime given her requirements. Long discussion at the bedside with patient. Consent obtained. We will plan for port removal. Thank you will follow recommendations (3) Sickle cell crisis David Farah Mar 12, 2020 08:28
--- NOTE | 2020-03-12 09:04 | 48 Hour Post Anesthesia Eval ---
Post Anesthesia Evaluation Procedure: removal of infected kaden cath Date of Evaluation: Mar 12, 2020 Time of Evaluation: 09:03 Blood Pressure Systolic: 104 0: 56 Pulse Rate: 76 Respiratory Rate: 20 Temperature (Fahrenheit): 97.7 O2 Sat by Pulse Oximetry: 96 Airway: patent Nausea: No Vomiting: No Pain Intensity: 3 Hydration Status: adequate Cardiopulmonary Status: stable Mental Status/LOC: patient returned to baseline Follow-up Care/Observations: n/a Post-Anesthesia Complications: none Follow-up care needed: N/A Vamsi Rosales MD Mar 12, 2020 09:04
--- NOTE | 2020-03-12 09:05 | Infectious Diseases Prog Note ---
Assessment/Plan 44yo F with: Acinetobacter baumanii bacteremia, CLABSI Afebrile Leukocytosis to 15 Port infection, dx'd by her Heme/onc doctor at [facility], Dr. Sampson Lazaro (I spoke with him on the phone to obtain the following results) 01/07 BCx Acinetobacter pitti S-bactrim, levoflox, meropenem, gent, amikacin Was on levoflox then bactrim for this 02/05 BCx Acinetobacter baumanni complex 03/02 BCx Acinetobacter baumanni, S-amikacin, ant, minocycline Was on IV abx for this, then on minocycline 03/11 Port removal, R fem central line placed for access TTE neg for vegetations 03/12 BCx ordered COVID pneumonia Satting well on RA Afebrile 03/10 COVID PCR positive at [place] Flu neg CXR: Patchy bilateral infiltrates. Findings related to multifocal pneumonia. Clinical correlation and follow-up recommended. Sickle cell disease Anemia to 5s Plan: Cont meropenem #2 to target Acinetobacter in prior BCx from [facility] BCx today to ensure clearance of bacteremia Will need at least 48 hour line holiday prior to placement of new line, since has fem central line in place will tentatively plan for new PICC on Monday if BCx from 03/12 are neg and pt remains clinically stable No current tx for COVID indicated given satting well on RA F/u HIV screen F/u BCx Monitor CBC/CMP Monitor temp curve, hemodynamics Monitor resp status COVID isolation D/w RN Thank you for this consult. [facility] will continue to follow. Subjective Allergies: Coded Allergies: SULFAMETHOXAZOLE (Verified Allergy, Unknown, hives, 03/11/20) TRIMETHOPRIM (Verified Allergy, Unknown, hives, 03/11/20) AF NAD WBC 15 yesterday, anemic to 5s Doing ok today, s/p 2u PRBC No resp complaints R fem CVC in place Objective Last 24 Hour Vital Signs Date Time Temp Pulse Resp B/P (MAP) Pulse Ox O2 Delivery O2 Flow Rate FiO2 03/12/20 06:01 98.9 03/12/20 04:00 98.7 73 20 103/58 (73) 98 03/12/20 01:58 98.9 03/12/20 00:00 98.9 84 18 115/67 (83) 98 03/11/20 21:10 97.8 03/11/20 21:08 Room Air 03/11/20 20:00 99.0 81 18 117/60 (79) 100 03/11/20 17:17 70 14 98 03/11/20 17:12 97.8 84 16 112/63 100 Nasal Cannula 3 03/11/20 17:08 88 14 98 03/11/20 17:02 88 20 118/65 100 Nasal Cannula 3 03/11/20 16:57 89 19 119/64 100 Simple Mask 6 03/11/20 16:52 97.9 89 19 120/70 100 Simple Mask 6 03/11/20 16:07 99.5 03/11/20 16:00 101.7 99 18 132/69 (90) 100 03/11/20 15:48 101.7 03/11/20 12:00 97.8 93 18 130/69 (89) 100 Height (Feet): 5 Height (Inches): 1.00 Weight (Pounds): 130 Gen: NAD HEENT: NCAT, R eye white Pulm: BL chest rise on RA Abd: Non-distended Ext: No c/c/e Skin: No visible rashes Neuro: Awake, alert, interactive Lines: R fem CVC dressing c/d/i Laboratory Tests Test 03/11/20 17:45 White Blood Count 15.2 K/UL (4.8-10.8) H Red Blood Count 1.53 M/UL (4.20-5.40) L Hemoglobin 5.0 G/DL (12.0-16.0) *L Hematocrit 15.8 % (37.0-47.0) L Mean Corpuscular Volume 103 FL (80-99) H Mean Corpuscular Hemoglobin 32.4 PG (27.0-31.0) H Mean Corpuscular Hemoglobin Concent 31.3 G/DL (32.0-36.0) L Red Cell Distribution Width 20.3 % (11.6-14.8) H Platelet Count 309 K/UL (150-450) Mean Platelet Volume 7.2 FL (6.5-10.1) Neutrophils (%) (Auto) % (45.0-75.0) Lymphocytes (%) (Auto) % (20.0-45.0) Monocytes (%) (Auto) % (1.0-10.0) Eosinophils (%) (Auto) % (0.0-3.0) Basophils (%) (Auto) % (0.0-2.0) Differential Total Cells Counted 100 Neutrophils % (Manual) 71 % (45-75) Lymphocytes % (Manual) 24 % (20-45) Monocytes % (Manual) 1 % (1-10) Eosinophils % (Manual) 4 % (0-3) H Basophils % (Manual) 0 % (0-2) Band Neutrophils 0 % (0-8) Platelet Estimate Increased H Platelet Morphology Normal Hypochromasia 3+ Anisocytosis 3+ Sodium Level 141 MMOL/L (136-145) Potassium Level 4.2 MMOL/L (3.5-5.1) Chloride Level 111 MMOL/L (98-107) H Carbon Dioxide Level 24 MMOL/L (21-32) Anion Gap 6 mmol/L (5-15) Blood Urea Nitrogen 10 mg/dL (7-18) Creatinine 0.9 MG/DL (0.55-1.30) Estimat Glomerular Filtration Rate > 60 mL/min (>60) Glucose Level 86 MG/DL (74-106) Calcium Level 7.0 MG/DL (8.5-10.1) L Phosphorus Level 3.1 MG/DL (2.5-4.9) Magnesium Level 1.7 MG/DL (1.8-2.4) L Total Bilirubin 1.8 MG/DL (0.2-1.0) H Direct Bilirubin 0.5 MG/DL (0.0-0.3) H Aspartate Amino Transf (AST/SGOT) 31 U/L (15-37) Alanine Aminotransferase (ALT/SGPT) 13 U/L (12-78) Alkaline Phosphatase 59 U/L (46-116) Total Protein 6.1 G/DL (6.4-8.2) L Albumin 2.3 G/DL (3.4-5.0) L Globulin 3.8 g/dL Albumin/Globulin Ratio 0.6 (1.0-2.7) L Human Chorionic Gonadotropin, Quant 1 mIU/mL (1-6) HIV (1&2) Antibody Rapid Pending Current Medications Medications (Trade) Dose Ordered Sig/Baljeet Route PRN Reason Start Time Stop Time Status Last Admin Dose Admin Acetaminophen (Tylenol) 650 mg Q6H PRN ORAL Temp >100.5/ mild pain (1-3) 03/11/20 00:45 04/10/20 00:44 03/11/20 15:36 Albuterol Sulfate (Proventil MDI) 2 puff Q4H PRN INH Shortness of Breath 03/11/20 00:45 06/09/20 00:44 Chlorhexidine Gluconate (Tatiana-Hex 2%) 1 applic BEDTIME TOPIC 03/11/20 21:00 06/09/20 20:59 03/11/20 21:04 Diphenhydramine HCl (Benadryl) 50 mg Q6H PRN IVP Itching 03/11/20 00:45 04/10/20 00:44 03/12/20 05:30 Folic Acid (Folate) 1 mg DAILY ORAL 03/12/20 09:00 04/11/20 08:59 03/12/20 08:58 Heparin Sodium (Porcine) (Heparin 5000 units/ml) 5,000 units EVERY 8 HOURS SUBQ 03/11/20 06:00 04/25/20 05:59 03/12/20 05:47 Hydromorphone HCl 2 mg/Sodium Chloride 56 ml @ 224 mls/hr Q4H PRN IVPB Moderate Pain (Pain Scale 4-6) 03/11/20 07:30 03/18/20 07:29 03/12/20 05:31 Hydromorphone HCl 4 mg/Sodium Chloride 57 ml @ 228 mls/hr Q4H PRN IVPB Severe Pain (Pain Scale 7-10) 03/11/20 07:30 03/18/20 07:29 03/12/20 01:28 Meropenem 2 gm/ Sodium Chloride 55 ml @ 110 mls/hr Q8HR IVPB 03/11/20 14:00 03/16/20 13:59 03/12/20 05:30 Ondansetron HCl (Zofran) 4 mg EVERY 4 HOURS PRN IVP Nausea & Vomiting 03/11/20 00:45 04/10/20 00:44 Rupali Herron M.D.b 4, 2021 09:05
--- NOTE | 2020-03-12 11:01 | Pulmonology Progress Note ---
Subjective ROS Limited/Unobtainable: Yes Constitutional: Reports: no symptoms HEENT: Repors: no symptoms Respiratory: Reports: no symptoms Cardiovascular: Reports: no symptoms Gastrointestinal/Abdominal: Reports: no symptoms Allergies: Coded Allergies: SULFAMETHOXAZOLE (Verified Allergy, Unknown, hives, 03/11/20) TRIMETHOPRIM (Verified Allergy, Unknown, hives, 03/11/20) Objective Last 24 Hour Vital Signs Date Time Temp Pulse Resp B/P (MAP) Pulse Ox O2 Delivery O2 Flow Rate FiO2 03/12/20 09:04 76 20 96 03/12/20 08:00 97.9 73 18 113/60 (77) 97 03/12/20 06:01 98.9 03/12/20 04:00 98.7 73 20 103/58 (73) 98 03/12/20 01:58 98.9 03/12/20 00:00 98.9 84 18 115/67 (83) 98 03/11/20 21:10 97.8 03/11/20 21:08 Room Air 03/11/20 20:00 99.0 81 18 117/60 (79) 100 03/11/20 17:17 70 14 98 03/11/20 17:12 97.8 84 16 112/63 100 Nasal Cannula 3 03/11/20 17:08 88 14 98 03/11/20 17:02 88 20 118/65 100 Nasal Cannula 3 03/11/20 16:57 89 19 119/64 100 Simple Mask 6 03/11/20 16:52 97.9 89 19 120/70 100 Simple Mask 6 03/11/20 16:07 99.5 03/11/20 16:00 101.7 99 18 132/69 (90) 100 03/11/20 15:48 101.7 03/11/20 12:00 97.8 93 18 130/69 (89) 100 Intake and Output 03/11/20 03/12/20 19:00 07:00 Intake Total 780 ml Output Total 10 ml Balance 770 ml Intake Oral 480 ml IV Total 300 ml Output Estimated Blood Loss 10 ml # Voids 1 1 General Appearance: no acute distress Respiratory: lungs clear Cardiovascular: normal rate Abdomen: soft, non tender Laboratory Tests 03/11/20 17:45: White Blood Count 15.2H, Red Blood Count 1.53L, Hemoglobin 5.0*L, Hematocrit 15.8L, Mean Corpuscular Volume 103H, Mean Corpuscular Hemoglobin 32.4H, Mean Corpuscular Hemoglobin Concent 31.3L, Red Cell Distribution Width 20.3H, Platelet Count 309, Mean Platelet Volume 7.2, Neutrophils (%) (Auto) , Lymphocytes (%) (Auto) , Monocytes (%) (Auto) , Eosinophils (%) (Auto) , Basophils (%) (Auto) , Differential Total Cells Counted 100, Neutrophils % (Manual) 71, Lymphocytes % (Manual) 24, Monocytes % (Manual) 1, Eosinophils % (Manual) 4H, Basophils % (Manual) 0, Band Neutrophils 0, Platelet Estimate IncreasedH, Platelet Morphology Normal, Hypochromasia 3+, Anisocytosis 3+, Sodium Level 141, Potassium Level 4.2, Chloride Level 111H, Carbon Dioxide Level 24, Anion Gap 6, Blood Urea Nitrogen 10, Creatinine 0.9, Estimat Glomerular Filtration Rate > 60, Glucose Level 86, Calcium Level 7.0L, Phosphorus Level 3.1, Magnesium Level 1.7L, Total Bilirubin 1.8H, Direct Bilirubin 0.5H, Aspartate Amino Transf (AST/SGOT) 31, Alanine Aminotransferase (ALT/SGPT) 13, Alkaline Phosphatase 59, Total Protein 6.1L, Albumin 2.3L, Globulin 3.8, Albumin/Globulin Ratio 0.6L, Human Chorionic Gonadotropin, Quant 1, HIV (1&2) Antibody Rapid [Pending] Current Medications Medications (Trade) Dose Ordered Sig/Baljeet Route PRN Reason Start Time Stop Time Status Last Admin Dose Admin Acetaminophen (Tylenol) 650 mg Q6H PRN ORAL Temp >100.5/ mild pain (1-3) 03/11/20 00:45 04/10/20 00:44 03/11/20 15:36 Albuterol Sulfate (Proventil MDI) 2 puff Q4H PRN INH Shortness of Breath 03/11/20 00:45 06/09/20 00:44 Chlorhexidine Gluconate (Tatiana-Hex 2%) 1 applic BEDTIME TOPIC 03/11/20 21:00 06/09/20 20:59 03/11/20 21:04 Diphenhydramine HCl (Benadryl) 50 mg Q6H PRN IVP Itching 03/11/20 00:45 04/10/20 00:44 03/12/20 05:30 Folic Acid (Folate) 1 mg DAILY ORAL 03/12/20 09:00 04/11/20 08:59 03/12/20 08:58 Heparin Sodium (Porcine) (Heparin 5000 units/ml) 5,000 units EVERY 8 HOURS SUBQ 03/11/20 06:00 04/25/20 05:59 03/12/20 05:47 Hydromorphone HCl 2 mg/Sodium Chloride 56 ml @ 224 mls/hr Q4H PRN IVPB Moderate Pain (Pain Scale 4-6) 03/11/20 07:30 03/18/20 07:29 03/12/20 05:31 Hydromorphone HCl 4 mg/Sodium Chloride 57 ml @ 228 mls/hr Q4H PRN IVPB Severe Pain (Pain Scale 7-10) 03/11/20 07:30 03/18/20 07:29 03/12/20 10:33 Meropenem 2 gm/ Sodium Chloride 55 ml @ 110 mls/hr Q8HR IVPB 03/11/20 14:00 03/16/20 13:59 03/12/20 05:30 Ondansetron HCl (Zofran) 4 mg EVERY 4 HOURS PRN IVP Nausea & Vomiting 03/11/20 00:45 04/10/20 00:44 Assessment/Plan Assessment/Plan 1. COVID-19 pneumonia; COVID-19 positive 03/10/20 at [place] -Patient is currently afebrile and normoxemic on room air -Patient was briefly given low flow oxygen via nasal cannula overnight -Monitor for hypoxia and provide supplemental oxygen as needed -At this time, no indication for specific therapy for COVID-19 2. Sickle cell disease sickle cell anemia -Per primary MD and ID specialist - s/p transfusion 3. Port infection -ID following - s/p port removal The care for this patient was discussed with my supervising physician. Time spent for this case was approximately 31 minutes. Lior Hong Mar 12, 2020 11:01
[2020-03-12 12:00] VITALS: BP 124/74
[2020-03-12 15:48] LABS: ANION GAP 5 mmol/L (5-15); BLOOD UREA NITROGEN 7 mg/dL (7-18); CALCIUM 7.2 MG/DL (8.5-10.1); CARBON DIOXIDE 25 MMOL/L (21-32); CHLORIDE 109 MMOL/L (98-107); SODIUM 139 MMOL/L (136-145)
[2020-03-12 16:00] VITALS: BP 104/66
[2020-03-12 16:02] LABS: HEMATOCRIT 24.6 % (37.0-47.0); HEMOGLOBIN 7.7 G/DL (12.0-16.0); MEAN CORPUSCULAR VOLUME 99 FL (80-99); PLATELET COUNT 293 K/UL (150-450); RED BLOOD COUNT 2.49 M/UL (4.20-5.40); RED CELL DISTRIBUTION WIDTH 20.1 % (11.6-14.8); WHITE BLOOD COUNT 8.5 K/UL (4.8-10.8)
[2020-03-12 16:08] LABS: FERRITIN 108 NG/ML (8-388); LACTATE DEHYDROGENASE 429 U/L (81-234)
[2020-03-12 16:19] LABS: % IRON SATURATION 16 % (15-50); IRON 34 ug/dL (50-175); TOTAL IRON BINDING CAPACITY 211 ug/dL (250-450)
--- NOTE | 2020-03-12 16:55 | NUR ---
NURSE NOTES: Reported hgb results to Dr. Horne. No response at this time, patient is stable. WIll continue plan of care.
--- NOTE | 2020-03-12 17:33 | Internal Med Progress Note ---
Subjective Physician Name Mike Fernandez Attending Physician Mike Fernandez MD Current Medications Medications (Trade) Dose Ordered Sig/Baljeet Route PRN Reason Start Time Stop Time Status Last Admin Dose Admin Acetaminophen (Tylenol) 650 mg Q6H PRN ORAL Temp >100.5/ mild pain (1-3) 03/11/20 00:45 04/10/20 00:44 03/11/20 15:36 Albuterol Sulfate (Proventil MDI) 2 puff Q4H PRN INH Shortness of Breath 03/11/20 00:45 06/09/20 00:44 Chlorhexidine Gluconate (Tatiana-Hex 2%) 1 applic BEDTIME TOPIC 03/11/20 21:00 06/09/20 20:59 03/11/20 21:04 Diphenhydramine HCl (Benadryl) 50 mg Q6H PRN IVP Itching 03/11/20 00:45 04/10/20 00:44 03/12/20 11:25 Folic Acid (Folate) 1 mg DAILY ORAL 03/12/20 09:00 04/11/20 08:59 03/12/20 08:58 Heparin Sodium (Porcine) (Heparin 5000 units/ml) 5,000 units EVERY 8 HOURS SUBQ 03/11/20 06:00 04/25/20 05:59 03/12/20 14:46 Hydromorphone HCl 2 mg/Sodium Chloride 56 ml @ 224 mls/hr Q4H PRN IVPB Moderate Pain (Pain Scale 4-6) 03/11/20 07:30 03/18/20 07:29 03/12/20 05:31 Hydromorphone HCl 4 mg/Sodium Chloride 57 ml @ 228 mls/hr Q4H PRN IVPB Severe Pain (Pain Scale 7-10) 03/11/20 07:30 03/18/20 07:29 03/12/20 10:33 Meropenem 2 gm/ Sodium Chloride 55 ml @ 110 mls/hr Q8HR IVPB 03/11/20 14:00 03/16/20 13:59 03/12/20 14:46 Ondansetron HCl (Zofran) 4 mg EVERY 4 HOURS PRN IVP Nausea & Vomiting 03/11/20 00:45 04/10/20 00:44 Allergies: Coded Allergies: SULFAMETHOXAZOLE (Verified Allergy, Unknown, hives, 03/11/20) TRIMETHOPRIM (Verified Allergy, Unknown, hives, 03/11/20) Subjective awake, alert, responsive, complaining about severe pain, hemoglobin 7.7 posttransfusion. Objective Last Vital Signs Date Time Temp Pulse Resp B/P (MAP) Pulse Ox O2 Delivery O2 Flow Rate FiO2 03/12/20 16:00 99.1 77 18 104/66 (79) 100 03/12/20 09:00 Room Air 03/11/20 17:12 3 Laboratory Tests Test 03/11/20 17:45 03/12/20 15:00 White Blood Count 15.2 K/UL (4.8-10.8) H 8.5 K/UL (4.8-10.8) Red Blood Count 1.53 M/UL (4.20-5.40) L 2.49 M/UL (4.20-5.40) L Hemoglobin 5.0 G/DL (12.0-16.0) *L 7.7 G/DL (12.0-16.0) #L Hematocrit 15.8 % (37.0-47.0) L 24.6 % (37.0-47.0) #L Mean Corpuscular Volume 103 FL (80-99) H 99 FL (80-99) Mean Corpuscular Hemoglobin 32.4 PG (27.0-31.0) H 30.8 PG (27.0-31.0) Mean Corpuscular Hemoglobin Concent 31.3 G/DL (32.0-36.0) L 31.3 G/DL (32.0-36.0) L Red Cell Distribution Width 20.3 % (11.6-14.8) H 20.1 % (11.6-14.8) H Platelet Count 309 K/UL (150-450) 293 K/UL (150-450) Mean Platelet Volume 7.2 FL (6.5-10.1) 7.3 FL (6.5-10.1) Neutrophils (%) (Auto) % (45.0-75.0) % (45.0-75.0) Lymphocytes (%) (Auto) % (20.0-45.0) % (20.0-45.0) Monocytes (%) (Auto) % (1.0-10.0) % (1.0-10.0) Eosinophils (%) (Auto) % (0.0-3.0) % (0.0-3.0) Basophils (%) (Auto) % (0.0-2.0) % (0.0-2.0) Differential Total Cells Counted 100 100 Neutrophils % (Manual) 71 % (45-75) 50 % (45-75) Lymphocytes % (Manual) 24 % (20-45) 39 % (20-45) Monocytes % (Manual) 1 % (1-10) 4 % (1-10) Eosinophils % (Manual) 4 % (0-3) H 6 % (0-3) H Basophils % (Manual) 0 % (0-2) 1 % (0-2) Band Neutrophils 0 % (0-8) 0 % (0-8) Platelet Estimate Increased H Adequate Platelet Morphology Normal Normal Hypochromasia 3+ 2+ Anisocytosis 3+ 3+ Sodium Level 141 MMOL/L (136-145) 139 MMOL/L (136-145) Potassium Level 4.2 MMOL/L (3.5-5.1) 4.0 MMOL/L (3.5-5.1) Chloride Level 111 MMOL/L (98-107) H 109 MMOL/L (98-107) H Carbon Dioxide Level 24 MMOL/L (21-32) 25 MMOL/L (21-32) Anion Gap 6 mmol/L (5-15) 5 mmol/L (5-15) Blood Urea Nitrogen 10 mg/dL (7-18) 7 mg/dL (7-18) Creatinine 0.9 MG/DL (0.55-1.30) 1.0 MG/DL (0.55-1.30) Estimat Glomerular Filtration Rate > 60 mL/min (>60) > 60 mL/min (>60) Glucose Level 86 MG/DL (74-106) 93 MG/DL (74-106) Calcium Level 7.0 MG/DL (8.5-10.1) L 7.2 MG/DL (8.5-10.1) L Phosphorus Level 3.1 MG/DL (2.5-4.9) Magnesium Level 1.7 MG/DL (1.8-2.4) L Total Bilirubin 1.8 MG/DL (0.2-1.0) H Direct Bilirubin 0.5 MG/DL (0.0-0.3) H Aspartate Amino Transf (AST/SGOT) 31 U/L (15-37) Alanine Aminotransferase (ALT/SGPT) 13 U/L (12-78) Alkaline Phosphatase 59 U/L (46-116) Total Protein 6.1 G/DL (6.4-8.2) L Albumin 2.3 G/DL (3.4-5.0) L Globulin 3.8 g/dL Albumin/Globulin Ratio 0.6 (1.0-2.7) L Human Chorionic Gonadotropin, Quant 1 mIU/mL (1-6) HIV (1&2) Antibody Rapid Pending Macrocytosis 1+ Reticulocyte Count Pending Sickle Cell Screen Pending Haptoglobin Pending Iron Level 34 ug/dL (50-175) L Total Iron Binding Capacity 211 ug/dL (250-450) L Percent Iron Saturation 16 % (15-50) Unsaturated Iron Binding 177 ug/dL (112-346) Ferritin 108 NG/ML (8-388) Lactate Dehydrogenase 429 U/L (81-234) H Vitamin B12 Level 519 PG/ML (193-986) Folate 13.3 NG/ML (8.6-58.9) Intake and Output 03/11/20 03/12/20 19:00 07:00 Intake Total 780 ml Output Total 10 ml Balance 770 ml Intake Oral 480 ml IV Total 300 ml Output Estimated Blood Loss 10 ml # Voids 1 1 Objective General: No acute distress, awake and alert HEENT: NCAT, sclera anicteric, PERRL, EOMI. Neck: Supple, no significant jugular venous distention, Lungs: Fair inspiratory effort, , clear to auscultation bilaterally, no Wheeze or Rales. CHEST WALL: surgical incision intact. Heart: Regular rate and rhythm, normal S1/S2, no murmurs/gallops Abdomen: soft, nontender, nondistended. Normoactive bowel sounds. / Rectal: Refused and deferred. Extremities: No Cyanosis , clubbing or edema. right femoral triple-lumen catheter. Neuro: A&O x 3, Able to move all extremities Skin: warm, no rashes or lesions Psych: Normal mood and affect Assessment/Plan Assessment/Plan ASSESSMENT: This is a 44-year-old female: 1. Infected Port-A-Cath. 2. COVID-19 Pneumonia. 3. Severe sickle cell anemia. 4. Sickle cell crisis. 5. Severe Anemia. TREATMENT: 1. Line sepsis. An Infectious Diseases consultation has been obtained with Dr. Herron . Abx: Meropenem monitor cultures. 2. Severe sickle cell anemia/sickle cell crisis. A Hematology/Oncology consultation has been obtained with Dr. Horne. The patient is currently receiving intravenous Dilaudid for pain control. DVT prophylaxis heparin subcu Monitor laboratory in the morning. Mike Fernandez MD Mar 12, 2020 17:33
--- NOTE | 2020-03-12 19:33 | NUR ---
NURSE HAND-OFF: Report given to Sunil RN.
[2020-03-12 20:00] VITALS: BP 104/61
--- NOTE | 2020-03-12 21:00 | NUR ---
NURSE NOTES: Pt is in bed, awake and alert. No acute distress noted. Pt is able to ambulate to the bathroom with assistance.Pain medication will be given as ordered PRN. Fall precautions in place, bed locked low in position,side rail sup and call light within reach.
[2020-03-12] MEDS: Dyna-Hex 2% Top Sol 2oz TOPIC SCH (23:06)
[2020-03-13] VITALS: BP 126/72
[2020-03-13 04:00] VITALS: BP 105/58
[2020-03-13] MEDS: Heparin 5000 units/ml inj SUBQ SCH ×3 (05:51→22:00)
[2020-03-13] MEDS: HYDROMORPHONE IVPB PRN ×4 (05:52→23:36)
[2020-03-13] MEDS: DiphenhydrAMINE 50mg/ml Inj IVP PRN ×4 (05:52→23:36)
[2020-03-13] MEDS: NS IVPB PRN ×4 (05:52→23:36)
[2020-03-13] MEDS: Meropenem 2 GM in NS 55 ML IVPB SCH ×3 (05:53→22:00)
--- NOTE | 2020-03-13 06:30 | NUR ---
NURSE NOTES: Pt is calm in bed now,
--- NOTE | 2020-03-13 06:47 | Hematology/Onc Progress Note ---
Assessment/Plan Assessment/Plan Assessment/Plan # Sickle cell disease sickle cell anemia --> hgb 5-->7.7 --> s/p transfusion --> will obtain anemia panel --> for sickle cell, r/o hemolysis, confirm sickle cell and obtain ldh, hapto, retic --> transfuse as needed --> outpatient heme --> dilaudid for pain control # Leukocytosis due to COVID-19 pneumonia; COVID-19 positive 03/10/20 at [facility] -> Patient is currently afebrile and normoxemic on room air --> Patient was briefly given low flow oxygen via nasal cannula overnight --> Monitor for hypoxia and provide supplemental oxygen as needed --> per pulm --> Abx meropenem --> wbc 16 # Port infection --> ID following --> Benyamini has removed # Dehydration --> goal euvolemia # Dvt ppx heparin sq Appreciate consultation and nicholas rn Subjective HEENT: Denies: no symptoms, eye pain, blurred vision, tearing, double vision, ear pain, ear discharge, nose pain, nose congestion, throat pain, throat swelling, mouth pain, mouth swelling, other Cardiovascular: Denies: no symptoms, chest pain, edema, irregular heart rate, lightheadedness, palpitations, syncope, other Respiratory: Denies: no symptoms, cough, shortness of breath, SOB with excertion, SOB at rest, sputum, wheezing, other Gastrointestinal/Abdominal: Denies: no symptoms, abdomen distended, abdominal pain, black stools, tarry stools, blood in stool, constipated, diarrhea, difficulty swallowing, nausea, poor appetite, poor fluid intake, rectal bleeding, vomiting, other Genitourinary: Denies: no symptoms, burning, discharge, frequency, flank pain, hematuria, incontinence, pain, urgency, other Neurologic/Psychiatric: Denies: no symptoms, anxiety, depressed, emotional problems, headache, numbness, paresthesia, pre-existing deficit, seizure, tingling, tremors, weakness, other Hematologic/Lymphatic: Denies: no symptoms, anemia, easy bleeding, easy bruising, adenopathy, other Allergies: Coded Allergies: SULFAMETHOXAZOLE (Verified Allergy, Unknown, hives, 03/11/20) TRIMETHOPRIM (Verified Allergy, Unknown, hives, 03/11/20) Subjective 2/5 dw Rn in the am, have started on hydroxyurea, and folic acid Objective Objective Current Medications Medications (Trade) Dose Ordered Sig/Baljeet Route PRN Reason Start Time Stop Time Status Last Admin Dose Admin Acetaminophen (Tylenol) 650 mg Q6H PRN ORAL Temp >100.5/ mild pain (1-3) 03/11/20 00:45 04/10/20 00:44 03/11/20 15:36 Albuterol Sulfate (Proventil MDI) 2 puff Q4H PRN INH Shortness of Breath 03/11/20 00:45 06/09/20 00:44 Chlorhexidine Gluconate (Tatiana-Hex 2%) 1 applic BEDTIME TOPIC 03/11/20 21:00 06/09/20 20:59 03/12/20 23:06 Diphenhydramine HCl (Benadryl) 50 mg Q6H PRN IVP Itching 03/11/20 00:45 04/10/20 00:44 03/13/20 05:52 Folic Acid (Folate) 1 mg DAILY ORAL 03/12/20 09:00 04/11/20 08:59 03/12/20 08:58 Heparin Sodium (Porcine) (Heparin 5000 units/ml) 5,000 units EVERY 8 HOURS SUBQ 03/11/20 06:00 04/25/20 05:59 03/13/20 05:51 Hydromorphone HCl 2 mg/Sodium Chloride 56 ml @ 224 mls/hr Q4H PRN IVPB Moderate Pain (Pain Scale 4-6) 03/11/20 07:30 03/18/20 07:29 03/12/20 05:31 Hydromorphone HCl 4 mg/Sodium Chloride 57 ml @ 228 mls/hr Q4H PRN IVPB Severe Pain (Pain Scale 7-10) 03/11/20 07:30 03/18/20 07:29 03/13/20 05:52 Hydroxyurea (Hydrea) 500 mg TWICE A DAY ORAL 03/13/20 09:00 03/18/20 08:59 UNV Meropenem 2 gm/ Sodium Chloride 55 ml @ 110 mls/hr Q8HR IVPB 03/11/20 14:00 03/16/20 13:59 03/13/20 05:53 Ondansetron HCl (Zofran) 4 mg EVERY 4 HOURS PRN IVP Nausea & Vomiting 03/11/20 00:45 04/10/20 00:44 Last 24 Hour Vital Signs Date Time Temp Pulse Resp B/P (MAP) Pulse Ox O2 Delivery O2 Flow Rate FiO2 03/13/20 04:00 97.9 72 18 105/58 (74) 100 03/13/20 00:00 97.7 79 19 126/72 (90) 100 03/12/20 21:00 Room Air 03/12/20 20:00 97.0 73 18 104/61 (75) 95 03/12/20 16:00 99.1 77 18 104/66 (79) 100 03/12/20 12:00 98.4 79 20 124/74 (91) 100 03/12/20 09:04 76 20 96 03/12/20 09:00 Room Air 03/12/20 08:00 97.9 73 18 113/60 (77) 97 03/12/20 06:01 98.9 03/12/20 04:00 98.7 73 20 103/58 (73) 98 03/12/20 01:58 98.9 03/12/20 00:00 98.9 84 18 115/67 (83) 98 03/11/20 21:10 97.8 03/11/20 21:08 Room Air 03/11/20 20:00 99.0 81 18 117/60 (79) 100 03/11/20 17:17 70 14 98 03/11/20 17:12 97.8 84 16 112/63 100 Nasal Cannula 3 03/11/20 17:08 88 14 98 03/11/20 17:02 88 20 118/65 100 Nasal Cannula 3 03/11/20 16:57 89 19 119/64 100 Simple Mask 6 03/11/20 16:52 97.9 89 19 120/70 100 Simple Mask 6 03/11/20 16:07 99.5 03/11/20 16:00 101.7 99 18 132/69 (90) 100 03/11/20 15:48 101.7 03/11/20 12:00 97.8 93 18 130/69 (89) 100 03/11/20 09:00 Room Air 03/11/20 08:00 97.8 75 18 144/55 (84) 99 Intake and Output 03/12/20 03/13/20 19:00 07:00 Intake Total 840 ml 112 ml Balance 840 ml 112 ml Intake Oral 840 ml IV Total 112 ml # Voids 2 3 Labs Test 03/11/20 17:45 03/12/20 15:00 White Blood Count 15.2 K/UL (4.8-10.8) 8.5 K/UL (4.8-10.8) Red Blood Count 1.53 M/UL (4.20-5.40) 2.49 M/UL (4.20-5.40) Hemoglobin 5.0 G/DL (12.0-16.0) 7.7 G/DL (12.0-16.0) Hematocrit 15.8 % (37.0-47.0) 24.6 % (37.0-47.0) Mean Corpuscular Volume 103 FL (80-99) 99 FL (80-99) Mean Corpuscular Hemoglobin 32.4 PG (27.0-31.0) 30.8 PG (27.0-31.0) Mean Corpuscular Hemoglobin Concent 31.3 G/DL (32.0-36.0) 31.3 G/DL (32.0-36.0) Red Cell Distribution Width 20.3 % (11.6-14.8) 20.1 % (11.6-14.8) Platelet Count 309 K/UL (150-450) 293 K/UL (150-450) Mean Platelet Volume 7.2 FL (6.5-10.1) 7.3 FL (6.5-10.1) Neutrophils (%) (Auto) % (45.0-75.0) % (45.0-75.0) Lymphocytes (%) (Auto) % (20.0-45.0) % (20.0-45.0) Monocytes (%) (Auto) % (1.0-10.0) % (1.0-10.0) Eosinophils (%) (Auto) % (0.0-3.0) % (0.0-3.0) Basophils (%) (Auto) % (0.0-2.0) % (0.0-2.0) Differential Total Cells Counted 100 100 Neutrophils % (Manual) 71 % (45-75) 50 % (45-75) Lymphocytes % (Manual) 24 % (20-45) 39 % (20-45) Monocytes % (Manual) 1 % (1-10) 4 % (1-10) Eosinophils % (Manual) 4 % (0-3) 6 % (0-3) Basophils % (Manual) 0 % (0-2) 1 % (0-2) Band Neutrophils 0 % (0-8) 0 % (0-8) Platelet Estimate Increased Adequate Platelet Morphology Normal Normal Hypochromasia 3+ 2+ Anisocytosis 3+ 3+ Sodium Level 141 MMOL/L (136-145) 139 MMOL/L (136-145) Potassium Level 4.2 MMOL/L (3.5-5.1) 4.0 MMOL/L (3.5-5.1) Chloride Level 111 MMOL/L (98-107) 109 MMOL/L (98-107) Carbon Dioxide Level 24 MMOL/L (21-32) 25 MMOL/L (21-32) Anion Gap 6 mmol/L (5-15) 5 mmol/L (5-15) Blood Urea Nitrogen 10 mg/dL (7-18) 7 mg/dL (7-18) Creatinine 0.9 MG/DL (0.55-1.30) 1.0 MG/DL (0.55-1.30) Estimat Glomerular Filtration Rate > 60 mL/min (>60) > 60 mL/min (>60) Glucose Level 86 MG/DL (74-106) 93 MG/DL (74-106) Calcium Level 7.0 MG/DL (8.5-10.1) 7.2 MG/DL (8.5-10.1) Phosphorus Level 3.1 MG/DL (2.5-4.9) Magnesium Level 1.7 MG/DL (1.8-2.4) Total Bilirubin 1.8 MG/DL (0.2-1.0) Direct Bilirubin 0.5 MG/DL (0.0-0.3) Aspartate Amino Transf (AST/SGOT) 31 U/L (15-37) Alanine Aminotransferase (ALT/SGPT) 13 U/L (12-78) Alkaline Phosphatase 59 U/L (46-116) Total Protein 6.1 G/DL (6.4-8.2) Albumin 2.3 G/DL (3.4-5.0) Globulin 3.8 g/dL Albumin/Globulin Ratio 0.6 (1.0-2.7) Human Chorionic Gonadotropin, Quant 1 mIU/mL (1-6) Macrocytosis 1+ Reticulocyte Count 2.2 % (0.5-2.0) Iron Level 34 ug/dL (50-175) Total Iron Binding Capacity 211 ug/dL (250-450) Percent Iron Saturation 16 % (15-50) Unsaturated Iron Binding 177 ug/dL (112-346) Ferritin 108 NG/ML (8-388) Lactate Dehydrogenase 429 U/L (81-234) Vitamin B12 Level 519 PG/ML (193-986) Folate 13.3 NG/ML (8.6-58.9) Height (Feet): 5 Height (Inches): 1.00 Weight (Pounds): 130 Objective PHYSICAL EXAMINATION: VITAL SIGNS: reviewed General: Patient sitting up in bed getting IV access by a nurse, not in respiratory distress at the moment on room air HEENT: Head exam reveals that the head is normocephalic, atraumatic without deformity or unusual swelling. Right hazy eye CHEST AND LUNGS: Reveals clear, normal, symmetrical breath sounds with no adventitious sounds. CARDIOVASCULAR: Reveals normal S1, S2 without murmurs, rubs, or clicks. ABDOMEN: Soft with no tenderness or organomegaly. RECTAL: Deferred. MUSCULOSKELETAL: There is no tenderness to palpation. Range of motion is normal. NEUROLOGICAL: Alert and oriented x3 , nonfocal Redd Horne MD Mar 13, 2020 06:47
--- NOTE | 2020-03-13 07:20 | NUR ---
NURSE HAND-OFF: Important Events on Shift:[] Patient Status: [Stable] Diet: [Reg] Pending Orders: [] Pending Results/Labs:[] Pending MD notification:[] Latest Vital Signs: Temperature 97.9 , Pulse 72 , B/P 105 /58 , Respiratory Rate 18 , O2 SAT 100 , Nasal Cannula, O2 Flow Rate 3 . Vital Sign Comment: [] Latest Whitt Fall Score: 35 Fall Risk: Medium Risk Safety Measures: Call light Within Reach, Bed Alarm Zone 1, Side Rails Side Rails x2, Bed position Low and Locked. Fall Precautions: Yellow Socks Report given to TRICE Aguilar, informed that patient is fall risk].
--- NOTE | 2020-03-13 07:28 | NUR ---
NURSE NOTES: pt is in the bed, alert and awake. respiration is even and unlabored on room air. denies any pain and discomfort at this time. no acute distress noted. call light within reach.
[2020-03-13 08:00] VITALS: BP 103/62
[2020-03-13] MEDS: Hydroxyurea 500mg cap ORAL SCH ×2 (09:11→17:29)
--- NOTE | 2020-03-13 09:23 | Infectious Diseases Prog Note ---
Assessment/Plan 44yo F with: Acinetobacter baumanii bacteremia, CLABSI Afebrile Leukocytosis to 15 Port infection, dx'd by her Heme/onc doctor at [facility], Dr. Sampson Lazaro (I spoke with him on the phone to obtain the following results) 01/07 BCx Acinetobacter pitti S-bactrim, levoflox, meropenem, gent, amikacin Was on levoflox then bactrim for this 02/05 BCx Acinetobacter baumanni complex 03/02 BCx Acinetobacter baumanni, S-amikacin, ant, minocycline Was on IV abx for this, then on minocycline 03/11 BCx NTD 03/11 Port removal, R fem central line placed for access TTE neg for vegetations 03/12 BCx ordered COVID pneumonia Satting well on RA Afebrile 03/10 COVID PCR positive at [place] Flu neg CXR: Patchy bilateral infiltrates. Findings related to multifocal pneumonia. Clinical correlation and follow-up recommended. Sickle cell disease Anemia to 5s Plan: Cont meropenem #3 to target Acinetobacter in prior BCx from [facility] BCx today to ensure clearance of bacteremia Will need at least 48 hour line holiday prior to placement of new line, since has fem central line in place will tentatively plan for new PICC on Monday if BC x from 03/12 are neg and pt remains clinically stable No current tx for COVID indicated given satting well on RA F/u HIV screen F/u BCx Monitor CBC/CMP Monitor temp curve, hemodynamics Monitor resp status COVID isolation D/w RN Thank you for this consult. [facility] will continue to follow. Subjective Allergies: Coded Allergies: SULFAMETHOXAZOLE (Verified Allergy, Unknown, hives, 03/11/20) TRIMETHOPRIM (Verified Allergy, Unknown, hives, 03/11/20) AF NAD Breathing stable on RA No new fevers/chills Tolerating abx Objective Last 24 Hour Vital Signs Date Time Temp Pulse Resp B/P (MAP) Pulse Ox O2 Delivery O2 Flow Rate FiO2 03/13/20 04:00 97.9 72 18 105/58 (74) 100 03/13/20 00:00 97.7 79 19 126/72 (90) 100 03/12/20 21:00 Room Air 03/12/20 20:00 97.0 73 18 104/61 (75) 95 03/12/20 16:00 99.1 77 18 104/66 (79) 100 03/12/20 12:00 98.4 79 20 124/74 (91) 100 Height (Feet): 5 Height (Inches): 1.00 Weight (Pounds): 130 Gen: NAD HEENT: NCAT, R eye white Pulm: BL chest rise on RA Abd: Non-distended Ext: No c/c/e Skin: No visible rashes Neuro: Awake, alert, interactive Lines: R fem CVC dressing c/d/i Microbiology Date/Time Source Procedure Growth Status 03/11/20 18:00 Blood Blood Culture - Preliminary NO GROWTH AFTER 24 HOURS Resulted 03/11/20 17:45 Blood Blood Culture - Preliminary NO GROWTH AFTER 24 HOURS Resulted 03/11/20 16:30 Chest Gram Stain - Final Resulted 03/11/20 16:30 Chest Aerobic Culture Pending Resulted Laboratory Tests Test 03/12/20 15:00 White Blood Count 8.5 K/UL (4.8-10.8) Red Blood Count 2.49 M/UL (4.20-5.40) L Hemoglobin 7.7 G/DL (12.0-16.0) #L Hematocrit 24.6 % (37.0-47.0) #L Mean Corpuscular Volume 99 FL (80-99) Mean Corpuscular Hemoglobin 30.8 PG (27.0-31.0) Mean Corpuscular Hemoglobin Concent 31.3 G/DL (32.0-36.0) L Red Cell Distribution Width 20.1 % (11.6-14.8) H Platelet Count 293 K/UL (150-450) Mean Platelet Volume 7.3 FL (6.5-10.1) Neutrophils (%) (Auto) % (45.0-75.0) Lymphocytes (%) (Auto) % (20.0-45.0) Monocytes (%) (Auto) % (1.0-10.0) Eosinophils (%) (Auto) % (0.0-3.0) Basophils (%) (Auto) % (0.0-2.0) Differential Total Cells Counted 100 Neutrophils % (Manual) 50 % (45-75) Lymphocytes % (Manual) 39 % (20-45) Monocytes % (Manual) 4 % (1-10) Eosinophils % (Manual) 6 % (0-3) H Basophils % (Manual) 1 % (0-2) Band Neutrophils 0 % (0-8) Platelet Estimate Adequate Platelet Morphology Normal Hypochromasia 2+ Anisocytosis 3+ Macrocytosis 1+ Reticulocyte Count 2.2 % (0.5-2.0) H Sickle Cell Screen Pending Haptoglobin Pending Sodium Level 139 MMOL/L (136-145) Potassium Level 4.0 MMOL/L (3.5-5.1) Chloride Level 109 MMOL/L (98-107) H Carbon Dioxide Level 25 MMOL/L (21-32) Anion Gap 5 mmol/L (5-15) Blood Urea Nitrogen 7 mg/dL (7-18) Creatinine 1.0 MG/DL (0.55-1.30) Estimat Glomerular Filtration Rate > 60 mL/min (>60) Glucose Level 93 MG/DL (74-106) Calcium Level 7.2 MG/DL (8.5-10.1) L Iron Level 34 ug/dL (50-175) L Total Iron Binding Capacity 211 ug/dL (250-450) L Percent Iron Saturation 16 % (15-50) Unsaturated Iron Binding 177 ug/dL (112-346) Ferritin 108 NG/ML (8-388) Lactate Dehydrogenase 429 U/L (81-234) H Vitamin B12 Level 519 PG/ML (193-986) Folate 13.3 NG/ML (8.6-58.9) Current Medications Medications (Trade) Dose Ordered Sig/Baljeet Route PRN Reason Start Time Stop Time Status Last Admin Dose Admin Acetaminophen (Tylenol) 650 mg Q6H PRN ORAL Temp >100.5/ mild pain (1-3) 03/11/20 00:45 04/10/20 00:44 03/11/20 15:36 Albuterol Sulfate (Proventil MDI) 2 puff Q4H PRN INH Shortness of Breath 03/11/20 00:45 06/09/20 00:44 Chlorhexidine Gluconate (Tatiana-Hex 2%) 1 applic BEDTIME TOPIC 03/11/20 21:00 06/09/20 20:59 03/12/20 23:06 Diphenhydramine HCl (Benadryl) 50 mg Q6H PRN IVP Itching 03/11/20 00:45 04/10/20 00:44 03/13/20 05:52 Folic Acid (Folate) 1 mg DAILY ORAL 03/12/20 09:00 04/11/20 08:59 03/13/20 09:11 Heparin Sodium (Porcine) (Heparin 5000 units/ml) 5,000 units EVERY 8 HOURS SUBQ 03/11/20 06:00 04/25/20 05:59 03/13/20 05:51 Hydromorphone HCl 2 mg/Sodium Chloride 56 ml @ 224 mls/hr Q4H PRN IVPB Moderate Pain (Pain Scale 4-6) 03/11/20 07:30 03/18/20 07:29 03/12/20 05:31 Hydromorphone HCl 4 mg/Sodium Chloride 57 ml @ 228 mls/hr Q4H PRN IVPB Severe Pain (Pain Scale 7-10) 03/11/20 07:30 03/18/20 07:29 03/13/20 05:52 Hydroxyurea (Hydrea) 500 mg TWICE A DAY ORAL 03/13/20 09:00 03/18/20 08:59 03/13/20 09:11 Meropenem 2 gm/ Sodium Chloride 55 ml @ 110 mls/hr Q8HR IVPB 03/11/20 14:00 03/16/20 13:59 03/13/20 05:53 Ondansetron HCl (Zofran) 4 mg EVERY 4 HOURS PRN IVP Nausea & Vomiting 03/11/20 00:45 04/10/20 00:44 Rupali Herron M.D. Mar 13, 2020 09:23
--- NOTE | 2020-03-13 10:40 | NUR ---
CASE MANAGEMENT:REVIEW 03/13/20 SI: INFECTED CHEST WALL PORT BILATERAL COVID PNA. SICKLE CELL DISEASE 97.7 84 18 103/62 95% ON RA IS: IV MEROPENEM Q8HRS HYDREA PO BID FOLATE PO QD HEPARIN SQ Q8HRS IV DILAUDID Q4HRS PRN : MED/SURG STATUS DCP: FROM HOME PLAN: S/P SURGICAL REMOVAL OF INFECTED PORT RT FEMORAL TEMPORARY CENTRAL LINE PLACED ISOLATION FOR COVID F/U ON PENDING BLOOD CX
[2020-03-13 12:00] VITALS: BP 116/69
--- NOTE | 2020-03-13 12:53 | Cardiology Report ---
APPROVED REPORT EXAM: Two-dimensional and M-mode echocardiogram with Doppler and color Doppler. INDICATION ENDOCARDITIS M-Mode DIMENSIONS IVSd1.0 (0.7-1.1cm)Left Atrium (MM)2.9 (1.6-4.0cm) LVDd3.4 (3.5-5.6cm)Aortic Root2.7 (2.0-3.7cm) PWd1.0 (0.7-1.1cm)Aortic Cusp Exc.1.5 (1.5-2.0cm) IVSs1.1 cm LVDs2.1 (2.5-4.0cm) PWs1.3 cm <Conclusion> Technically difficult study due poor acoustical windows. Normal left ventricular chamber size, systolic function and wall motion to extent visualized. Left ventricular ejection fraction estimated to be 55%. No evidence of ventricular hypertrophy. Normal left atrial chamber size. Right atrial size at upper limits of normal. Right ventricular chamber sizes is within normal limits. Calcification of aortic valve with adequate cusp excursion. Thickened mitral valve leaflets with normal excursion. Mitral annulus and aortic root calcification. Pulmonic valve not well visualized. Normal tricuspid valve structure. IVC dilated at 2.9 cm without physiologic collapse suggestive of increased RA pressure. A color flow and spectral Doppler study was performed and revealed: No aortic regurgitation. Mild mitral regurgitation. Mitral diastolic velocities suggest reduced left ventricular relaxation c/w mild diastolic dysfunction (Grade I). Mild to moderate tricuspid regurgitation. Tricuspid systolic velocities suggests peak right ventricular systolic pressure of 47 mmHg,consistent with mild pulmonary HTN. No discrete vegetations seen, however SBE may not be excluded by transthoracic 2-D echo.
--- NOTE | 2020-03-13 15:35 | Pulmonology Progress Note ---
Subjective ROS Limited/Unobtainable: Yes Constitutional: Reports: no symptoms HEENT: Repors: no symptoms Respiratory: Reports: no symptoms Cardiovascular: Reports: no symptoms Gastrointestinal/Abdominal: Reports: no symptoms Allergies: Coded Allergies: SULFAMETHOXAZOLE (Verified Allergy, Unknown, hives, 03/11/20) TRIMETHOPRIM (Verified Allergy, Unknown, hives, 03/11/20) Objective Last 24 Hour Vital Signs Date Time Temp Pulse Resp B/P (MAP) Pulse Ox O2 Delivery O2 Flow Rate FiO2 03/13/20 12:00 99.1 87 20 116/69 (85) 97 03/13/20 09:00 Room Air 03/13/20 08:00 97.7 84 18 103/62 (76) 95 03/13/20 04:00 97.9 72 18 105/58 (74) 100 03/13/20 00:00 97.7 79 19 126/72 (90) 100 03/12/20 21:00 Room Air 03/12/20 20:00 97.0 73 18 104/61 (75) 95 03/12/20 16:00 99.1 77 18 104/66 (79) 100 Intake and Output 03/12/20 03/13/20 19:00 07:00 Intake Total 840 ml 224 ml Balance 840 ml 224 ml Intake Oral 840 ml IV Total 224 ml # Voids 2 3 General Appearance: no acute distress Respiratory: lungs clear Cardiovascular: normal rate Abdomen: soft, non tender Microbiology Date/Time Source Procedure Growth Status 03/11/20 18:00 Blood Blood Culture - Preliminary NO GROWTH AFTER 24 HOURS Resulted 03/11/20 17:45 Blood Blood Culture - Preliminary NO GROWTH AFTER 24 HOURS Resulted 03/11/20 16:30 Chest Gram Stain - Final Resulted 03/11/20 16:30 Chest Aerobic Culture - Preliminary NO GROWTH AFTER 24 HOURS Resulted Current Medications Medications (Trade) Dose Ordered Sig/Baljeet Route PRN Reason Start Time Stop Time Status Last Admin Dose Admin Acetaminophen (Tylenol) 650 mg Q6H PRN ORAL Temp >100.5/ mild pain (1-3) 03/11/20 00:45 04/10/20 00:44 03/11/20 15:36 Albuterol Sulfate (Proventil MDI) 2 puff Q4H PRN INH Shortness of Breath 03/11/20 00:45 06/09/20 00:44 03/13/20 09:50 Chlorhexidine Gluconate (Tatiana-Hex 2%) 1 applic BEDTIME TOPIC 03/11/20 21:00 06/09/20 20:59 03/12/20 23:06 Diphenhydramine HCl (Benadryl) 50 mg Q6H PRN IVP Itching 03/11/20 00:45 04/10/20 00:44 03/13/20 11:33 Folic Acid (Folate) 1 mg DAILY ORAL 03/12/20 09:00 04/11/20 08:59 03/13/20 09:11 Heparin Sodium (Porcine) (Heparin 5000 units/ml) 5,000 units EVERY 8 HOURS SUBQ 03/11/20 06:00 04/25/20 05:59 03/13/20 14:13 Hydromorphone HCl 2 mg/Sodium Chloride 56 ml @ 224 mls/hr Q4H PRN IVPB Moderate Pain (Pain Scale 4-6) 03/11/20 07:30 03/18/20 07:29 03/12/20 05:31 Hydromorphone HCl 4 mg/Sodium Chloride 57 ml @ 228 mls/hr Q4H PRN IVPB Severe Pain (Pain Scale 7-10) 03/11/20 07:30 03/18/20 07:29 03/13/20 11:35 Hydroxyurea (Hydrea) 500 mg TWICE A DAY ORAL 03/13/20 09:00 03/18/20 08:59 03/13/20 09:11 Meropenem 2 gm/ Sodium Chloride 55 ml @ 110 mls/hr Q8HR IVPB 03/11/20 14:00 03/16/20 13:59 03/13/20 14:12 Ondansetron HCl (Zofran) 4 mg EVERY 4 HOURS PRN IVP Nausea & Vomiting 03/11/20 00:45 04/10/20 00:44 Assessment/Plan Assessment/Plan 1. COVID-19 pneumonia; COVID-19 positive 03/10/20 at [place] -Patient is currently afebrile and normoxemic on room air -Patient was briefly given low flow oxygen via nasal cannula -Monitor for hypoxia and provide supplemental oxygen as needed -At this time, no indication for specific therapy for COVID-19 2. Sickle cell disease sickle cell anemia -Per primary MD and ID specialist - s/p transfusion 3. Port infection -ID following The care for this patient was discussed with my supervising physician. Time spent for this case was approximately 31 minutes. Lior Hong Mar 13, 2020 15:35
[2020-03-13 16:00] VITALS: BP 113/77
--- NOTE | 2020-03-13 18:35 | NUR ---
NURSE HAND-OFF: Important Events on Shift:n/a Patient Status: stable Diet: regular Pending Orders: n/a Pending Results/Labs:n/a Pending MD notification:n/a Latest Vital Signs: Temperature 99.1 , Pulse 87 , B/P 113 /77 , Respiratory Rate 18 , O2 SAT 97 , Nasal Cannula, O2 Flow Rate 3 . Vital Sign Comment: stable Latest Whitt Fall Score: 35 Fall Risk: Medium Risk Safety Measures: Call light Within Reach, Bed Alarm Zone 1, Side Rails Side Rails x2, Bed position Low and Locked. Fall Precautions: Yellow Socks Report given to . Addendum: 03/13/20 at 1920 by Jeff Meng RN NURSE HAND-OFF: Important Events on Shift:[] Patient Status: [] Diet: [] Pending Orders: [] Pending Results/Labs:[] Pending MD notification:[] Latest Vital Signs: Temperature 99.1 , Pulse 87 , B/P 113 /77 , Respiratory Rate 18 , O2 SAT 97 , Nasal Cannula, O2 Flow Rate 3 . Vital Sign Comment: [] Latest Whtit Fall Score: 35 Fall Risk: Medium Risk Safety Measures: Call light Within Reach, Bed Alarm Zone 1, Side Rails Side Rails x2, Bed position Low and Locked. Fall Precautions: Yellow Socks Report given to MARIA C
--- NOTE | 2020-03-13 19:58 | Internal Med Progress Note ---
Subjective Physician Name Mike Fernandez Attending Physician Mike Fernandez MD Current Medications Medications (Trade) Dose Ordered Sig/Baljeet Route PRN Reason Start Time Stop Time Status Last Admin Dose Admin Acetaminophen (Tylenol) 650 mg Q6H PRN ORAL Temp >100.5/ mild pain (1-3) 03/11/20 00:45 04/10/20 00:44 03/13/20 16:10 Albuterol Sulfate (Proventil MDI) 2 puff Q4H PRN INH Shortness of Breath 03/11/20 00:45 06/09/20 00:44 03/13/20 09:50 Chlorhexidine Gluconate (Tatiana-Hex 2%) 1 applic BEDTIME TOPIC 03/11/20 21:00 06/09/20 20:59 03/12/20 23:06 Diphenhydramine HCl (Benadryl) 50 mg Q6H PRN IVP Itching 03/11/20 00:45 04/10/20 00:44 03/13/20 17:28 Folic Acid (Folate) 1 mg DAILY ORAL 03/12/20 09:00 04/11/20 08:59 03/13/20 09:11 Heparin Sodium (Porcine) (Heparin 5000 units/ml) 5,000 units EVERY 8 HOURS SUBQ 03/11/20 06:00 04/25/20 05:59 03/13/20 14:13 Hydromorphone HCl 2 mg/Sodium Chloride 56 ml @ 224 mls/hr Q4H PRN IVPB Moderate Pain (Pain Scale 4-6) 03/11/20 07:30 03/18/20 07:29 03/12/20 05:31 Hydromorphone HCl 4 mg/Sodium Chloride 57 ml @ 228 mls/hr Q4H PRN IVPB Severe Pain (Pain Scale 7-10) 03/11/20 07:30 03/18/20 07:29 03/13/20 16:04 Hydroxyurea (Hydrea) 500 mg TWICE A DAY ORAL 03/13/20 09:00 03/18/20 08:59 03/13/20 17:29 Meropenem 2 gm/ Sodium Chloride 55 ml @ 110 mls/hr Q8HR IVPB 03/11/20 14:00 03/16/20 13:59 03/13/20 14:12 Ondansetron HCl (Zofran) 4 mg EVERY 4 HOURS PRN IVP Nausea & Vomiting 03/11/20 00:45 04/10/20 00:44 Allergies: Coded Allergies: SULFAMETHOXAZOLE (Verified Allergy, Unknown, hives, 03/11/20) TRIMETHOPRIM (Verified Allergy, Unknown, hives, 03/11/20) Subjective awake, alert, responsive, complaining about severe pain. Objective Last Vital Signs Date Time Temp Pulse Resp B/P (MAP) Pulse Ox O2 Delivery O2 Flow Rate FiO2 03/13/20 16:40 99.1 03/13/20 16:00 87 18 113/77 (89) 97 03/13/20 09:00 Room Air 03/11/20 17:12 3 Microbiology Date/Time Source Procedure Growth Status 03/11/20 18:00 Blood Blood Culture - Preliminary NO GROWTH AFTER 24 HOURS Resulted 03/11/20 17:45 Blood Blood Culture - Preliminary NO GROWTH AFTER 24 HOURS Resulted 03/11/20 16:30 Chest Gram Stain - Final Resulted 03/11/20 16:30 Chest Aerobic Culture - Preliminary NO GROWTH AFTER 24 HOURS Resulted Intake and Output 03/12/20 03/13/20 19:00 07:00 Intake Total 840 ml 224 ml Balance 840 ml 224 ml Intake Oral 840 ml IV Total 224 ml # Voids 2 3 Objective General: No acute distress, awake and alert HEENT: NCAT, sclera anicteric, PERRL, EOMI. Neck: Supple, no significant jugular venous distention, Lungs: Fair inspiratory effort, , clear to auscultation bilaterally, no Wheeze or Rales. CHEST WALL: surgical incision intact. Heart: Regular rate and rhythm, normal S1/S2, no murmurs/gallops Abdomen: soft, nontender, nondistended. Normoactive bowel sounds. / Rectal: Refused and deferred. Extremities: No Cyanosis , clubbing or edema. right femoral triple-lumen catheter. Neuro: A&O x 3, Able to move all extremities Skin: warm, no rashes or lesions Psych: Normal mood and affect Assessment/Plan Assessment/Plan ASSESSMENT: This is a 44-year-old female: 1. Infected Port-A-Cath. 2. COVID-19 Pneumonia. 3. Severe sickle cell anemia. 4. Sickle cell crisis. 5. Severe Anemia. TREATMENT: 1. Line sepsis. An Infectious Diseases consultation has been obtained with Dr. Herron . Abx: Meropenem monitor cultures. 2. Severe sickle cell anemia/sickle cell crisis. A Hematology/Oncology consultation has been obtained with Dr. Horne. The patient is currently receiving intravenous Dilaudid for pain control. DVT prophylaxis heparin subcu Monitor laboratory. Mike Fernandez MD Mar 13, 2020 19:57
[2020-03-13 20:00] VITALS: BP 101/59
--- NOTE | 2020-03-13 20:56 | NUR ---
NURSE NOTES: Pt is in bed, awake and alert. No acute distress noted. Pain medication will be given as ordered PRN. Fall precautions in place. Pt instructed to call before getting out of bed. Pt will be monitored.
[2020-03-13] MEDS: Dyna-Hex 2% Top Sol 2oz TOPIC SCH (21:00)
[2020-03-14] VITALS: BP 143/69
[2020-03-14 04:00] VITALS: BP 94/51
--- NOTE | 2020-03-14 05:30 | NUR ---
NURSE NOTES: Pt requires pain medication around the clock. Vitals stable.
[2020-03-14] MEDS: DiphenhydrAMINE 50mg/ml Inj IVP PRN ×3 (06:00→19:04)
[2020-03-14] MEDS: NS IVPB PRN ×3 (06:00→18:40)
[2020-03-14] MEDS: Meropenem 2 GM in NS 55 ML IVPB SCH ×3 (06:00→21:32)
[2020-03-14] MEDS: HYDROMORPHONE IVPB PRN ×3 (06:00→18:40)
[2020-03-14] MEDS: Heparin 5000 units/ml inj SUBQ SCH ×3 (06:16→21:27)
--- NOTE | 2020-03-14 07:15 | NUR ---
NURSE HAND-OFF: Important Events on Shift:[] Patient Status: [Stable] Diet: [Regular] Pending Orders: [] Pending Results/Labs:[] Pending MD notification:[] Latest Vital Signs: Temperature 98.1 , Pulse 79 , B/P 94 /51 , Respiratory Rate 18 , O2 SAT 96 , Nasal Cannula, O2 Flow Rate 3 . Vital Sign Comment: [] Latest Whitt Fall Score: 35 Fall Risk: Medium Risk Safety Measures: Call light Within Reach, Bed Alarm Zone 1, Side Rails Side Rails x2, Bed position Low and Locked. Fall Precautions: Yellow Socks Report given to [TRICE Lockhart, Informed that pt is fall risk].
[2020-03-14 07:29] LABS: BASOPHILS % (AUTO) 3.1 % (0.0-2.0); EOSINOPHILS % (AUTO) 0.2 % (0.0-3.0); HEMATOCRIT 26.4 % (37.0-47.0); HEMOGLOBIN 8.2 G/DL (12.0-16.0); LYMPHOCYTES % (AUTO) 15.1 % (20.0-45.0); MEAN CORPUSCULAR VOLUME 97 FL (80-99); MONOCYTES % (AUTO) 10.3 % (1.0-10.0); NEUTROPHILS % (AUTO) 71.3 % (45.0-75.0); PLATELET COUNT 291 K/UL (150-450); RED BLOOD COUNT 2.71 M/UL (4.20-5.40); RED CELL DISTRIBUTION WIDTH 19.6 % (11.6-14.8); WHITE BLOOD COUNT 7.5 K/UL (4.8-10.8)
[2020-03-14 07:37] LABS: ALANINE AMINOTRANSFERASE 18 U/L (12-78); ALBUMIN 2.5 G/DL (3.4-5.0); ALBUMIN/GLOBULIN RATIO 0.5 (1.0-2.7); ALKALINE PHOSPHATASE 72 U/L (46-116); ANION GAP 6 mmol/L (5-15); ASPARTATE AMINO TRANSFERASE 37 U/L (15-37); BILIRUBIN,TOTAL 1.5 MG/DL (0.2-1.0); BLOOD UREA NITROGEN 10 mg/dL (7-18); CALCIUM 7.3 MG/DL (8.5-10.1); CARBON DIOXIDE 25 MMOL/L (21-32); CHLORIDE 108 MMOL/L (98-107); CREATININE 1.1 MG/DL (0.55-1.30); PHOSPHORUS 2.1 MG/DL (2.5-4.9); POTASSIUM 3.8 MMOL/L (3.5-5.1); SODIUM 139 MMOL/L (136-145)
[2020-03-14 07:39] LABS: BILIRUBIN,DIRECT 0.3 MG/DL (0.0-0.3)
--- NOTE | 2020-03-14 08:46 | NUR ---
NURSE NOTES: Patient awake and alert and oriented,respirations unlabored.No complaints at this time.Call light within reach.
[2020-03-14] MEDS: Hydroxyurea 500mg cap ORAL SCH ×2 (09:54→18:41)
[2020-03-14 12:00] VITALS: BP 106/65
--- NOTE | 2020-03-14 14:30 | NUR ---
NURSE NOTES: DR Fernandez aware of patient phosphorus level of 2.1,DR state he will put in order.
[2020-03-14] MEDS: Phospha 250 Neutral tab ORAL SCH ×2 (14:46→18:51)
--- NOTE | 2020-03-14 15:24 | Surgery Progress Note ---
Surgery Progress Note Subjective Procedure Performed 1. removal of infected left chest wall port 2. central venous catheter insertion Additional Comments No acute events. Doing well. States needs more IV pain medications. No nausea vomiting fever chills tolerating diet central line okay port site clean and dry no signs of active infection at this time. Objective Last 24 Hour Vital Signs Date Time Temp Pulse Resp B/P (MAP) Pulse Ox O2 Delivery O2 Flow Rate FiO2 03/14/20 12:00 100.4 95 18 106/65 (79) 96 03/14/20 09:00 Room Air 03/14/20 04:00 98.1 79 18 94/51 (65) 96 03/14/20 00:00 96.5 84 17 143/69 (93) 92 03/13/20 21:00 Room Air 03/13/20 20:00 97.3 89 17 101/59 (73) 94 03/13/20 16:40 99.1 03/13/20 16:00 98.8 87 18 113/77 (89) 97 I&O Intake and Output 03/13/20 03/14/20 19:00 07:00 Intake Total 240 ml 260 ml Balance 240 ml 260 ml Intake Oral 240 ml Other 260 ml # Voids 2 2 Dressing: dry Wound: clean Cardiovascular: RSR Respiratory: clear Abdomen: soft, flat, non-tender, present bowel sounds Extremities: no edema, no tenderness, no cyanosis Laboratory Tests Test 03/14/20 06:00 White Blood Count 7.5 K/UL (4.8-10.8) Red Blood Count 2.71 M/UL (4.20-5.40) L Hemoglobin 8.2 G/DL (12.0-16.0) L Hematocrit 26.4 % (37.0-47.0) L Mean Corpuscular Volume 97 FL (80-99) Mean Corpuscular Hemoglobin 30.2 PG (27.0-31.0) Mean Corpuscular Hemoglobin Concent 31.0 G/DL (32.0-36.0) L Red Cell Distribution Width 19.6 % (11.6-14.8) H Platelet Count 291 K/UL (150-450) Mean Platelet Volume 7.9 FL (6.5-10.1) Neutrophils (%) (Auto) 71.3 % (45.0-75.0) Lymphocytes (%) (Auto) 15.1 % (20.0-45.0) L Monocytes (%) (Auto) 10.3 % (1.0-10.0) H Eosinophils (%) (Auto) 0.2 % (0.0-3.0) Basophils (%) (Auto) 3.1 % (0.0-2.0) H Sodium Level 139 MMOL/L (136-145) Potassium Level 3.8 MMOL/L (3.5-5.1) Chloride Level 108 MMOL/L (98-107) H Carbon Dioxide Level 25 MMOL/L (21-32) Anion Gap 6 mmol/L (5-15) Blood Urea Nitrogen 10 mg/dL (7-18) Creatinine 1.1 MG/DL (0.55-1.30) Estimat Glomerular Filtration Rate > 60 mL/min (>60) Glucose Level 89 MG/DL (74-106) Calcium Level 7.3 MG/DL (8.5-10.1) L Phosphorus Level 2.1 MG/DL (2.5-4.9) L Magnesium Level 2.1 MG/DL (1.8-2.4) Total Bilirubin 1.5 MG/DL (0.2-1.0) H Direct Bilirubin 0.3 MG/DL (0.0-0.3) Aspartate Amino Transf (AST/SGOT) 37 U/L (15-37) Alanine Aminotransferase (ALT/SGPT) 18 U/L (12-78) Alkaline Phosphatase 72 U/L (46-116) Total Protein 7.3 G/DL (6.4-8.2) Albumin 2.5 G/DL (3.4-5.0) L Globulin 4.8 g/dL Albumin/Globulin Ratio 0.5 (1.0-2.7) L Plan Problems: (1) Sickle cell crisis (2) infected portacath Assessment & Plan: 44-year-old female with infected implanted left chest wall port. Cultures were taken by her transportation broker and doctors who are reviewed by her infectious these doctors and discussed me as well. Infection grew from the port. Port does need to be removed patient recent fevers and being somatic. Plan for port removal. Will likely need temporary line in the meantime given her requirements. Long discussion at the bedside with patient. Consent obtained. We will plan for port removal. Thank you will follow recommendations Port is out micro reviewed Labs noted Heme input noted We will plan for PICC line on Monday and remove the central line and then discharge home (3) Sickle cell crisis David Farah Mar 14, 2020 15:23
--- NOTE | 2020-03-14 15:33 | Pulmonology Progress Note ---
Subjective ROS Limited/Unobtainable: Yes Interval Events: None new Constitutional: Reports: no symptoms HEENT: Repors: no symptoms Respiratory: Reports: no symptoms Cardiovascular: Reports: no symptoms Gastrointestinal/Abdominal: Reports: no symptoms Allergies: Coded Allergies: SULFAMETHOXAZOLE (Verified Allergy, Unknown, hives, 03/11/20) TRIMETHOPRIM (Verified Allergy, Unknown, hives, 03/11/20) Objective Last 24 Hour Vital Signs Date Time Temp Pulse Resp B/P (MAP) Pulse Ox O2 Delivery O2 Flow Rate FiO2 03/14/20 12:00 100.4 95 18 106/65 (79) 96 03/14/20 09:00 Room Air 03/14/20 04:00 98.1 79 18 94/51 (65) 96 03/14/20 00:00 96.5 84 17 143/69 (93) 92 03/13/20 21:00 Room Air 03/13/20 20:00 97.3 89 17 101/59 (73) 94 03/13/20 16:40 99.1 03/13/20 16:00 98.8 87 18 113/77 (89) 97 Intake and Output 03/13/20 03/14/20 19:00 07:00 Intake Total 240 ml 260 ml Balance 240 ml 260 ml Intake Oral 240 ml Other 260 ml # Voids 2 2 General Appearance: no acute distress Respiratory: lungs clear Cardiovascular: normal rate Abdomen: soft, non tender Microbiology Date/Time Source Procedure Growth Status 03/12/20 15:00 Blood Blood Culture - Preliminary NO GROWTH AFTER 24 HOURS Resulted 03/11/20 18:00 Blood Blood Culture - Preliminary NO GROWTH AFTER 48 HOURS Resulted 03/11/20 17:45 Blood Blood Culture - Preliminary NO GROWTH AFTER 48 HOURS Resulted 03/11/20 16:30 Chest Anaerobic Culture - Preliminary NO GROWTH AFTER 48 HOURS Resulted 03/11/20 16:30 Chest Gram Stain - Final Resulted 03/11/20 16:30 Chest Aerobic Culture - Preliminary NO GROWTH AFTER 48 HOURS Resulted Laboratory Tests 03/14/20 06:00: White Blood Count 7.5, Red Blood Count 2.71L, Hemoglobin 8.2L, Hematocrit 26.4L, Mean Corpuscular Volume 97, Mean Corpuscular Hemoglobin 30.2, Mean Corpuscular Hemoglobin Concent 31.0L, Red Cell Distribution Width 19.6H, Platelet Count 291, Mean Platelet Volume 7.9, Neutrophils (%) (Auto) 71.3, Lymphocytes (%) (Auto) 15.1L, Monocytes (%) (Auto) 10.3H, Eosinophils (%) (Auto) 0.2, Basophils (%) (Auto) 3.1H, Sodium Level 139, Potassium Level 3.8, Chloride Level 108H, Carbon Dioxide Level 25, Anion Gap 6, Blood Urea Nitrogen 10, Creatinine 1.1, Estimat Glomerular Filtration Rate > 60, Glucose Level 89, Calcium Level 7.3L, Phosphorus Level 2.1L, Magnesium Level 2.1, Total Bilirubin 1.5H, Direct Bilirubin 0.3, Aspartate Amino Transf (AST/SGOT) 37, Alanine Aminotransferase (ALT/SGPT) 18, Alkaline Phosphatase 72, Total Protein 7.3, Albumin 2.5L, Globulin 4.8, Albumin/Globulin Ratio 0.5L Current Medications Medications (Trade) Dose Ordered Sig/Baljeet Route PRN Reason Start Time Stop Time Status Last Admin Dose Admin Acetaminophen (Tylenol) 650 mg Q6H PRN ORAL Temp >100.5/ mild pain (1-3) 03/11/20 00:45 04/10/20 00:44 03/13/20 16:10 Albuterol Sulfate (Proventil MDI) 2 puff Q4H PRN INH Shortness of Breath 03/11/20 00:45 06/09/20 00:44 03/13/20 09:50 Chlorhexidine Gluconate (Tatiana-Hex 2%) 1 applic BEDTIME TOPIC 03/11/20 21:00 06/09/20 20:59 03/13/20 21:00 Diphenhydramine HCl (Benadryl) 50 mg Q6H PRN IVP Itching 03/11/20 00:45 04/10/20 00:44 03/14/20 12:37 Folic Acid (Folate) 1 mg DAILY ORAL 03/12/20 09:00 04/11/20 08:59 03/14/20 09:54 Heparin Sodium (Porcine) (Heparin 5000 units/ml) 5,000 units EVERY 8 HOURS SUBQ 03/11/20 06:00 04/25/20 05:59 03/14/20 14:48 Hydromorphone HCl 2 mg/Sodium Chloride 56 ml @ 224 mls/hr Q4H PRN IVPB Moderate Pain (Pain Scale 4-6) 03/11/20 07:30 03/18/20 07:29 03/12/20 05:31 Hydromorphone HCl 4 mg/Sodium Chloride 57 ml @ 228 mls/hr Q4H PRN IVPB Severe Pain (Pain Scale 7-10) 03/11/20 07:30 03/18/20 07:29 03/14/20 12:35 Hydroxyurea (Hydrea) 500 mg TWICE A DAY ORAL 03/13/20 09:00 03/18/20 08:59 03/14/20 09:54 Meropenem 2 gm/ Sodium Chloride 55 ml @ 110 mls/hr Q8HR IVPB 03/11/20 14:00 03/16/20 13:59 03/14/20 06:00 Ondansetron HCl (Zofran) 4 mg EVERY 4 HOURS PRN IVP Nausea & Vomiting 03/11/20 00:45 04/10/20 00:44 Phosphorus (Phospha 250 Neutral) 500 mg THREE TIMES A DAY ORAL 03/14/20 14:30 03/16/20 08:00 03/14/20 14:46 Assessment/Plan Assessment/Plan 1. COVID-19 pneumonia; COVID-19 positive 03/10/20 at [facility] -Patient is currently afebrile and normoxemic on room air -Patient was briefly given low flow oxygen via nasal cannula -Monitor for hypoxia and provide supplemental oxygen as needed -At this time, no indication for specific therapy for COVID-19 2. Sickle cell disease sickle cell anemia -Per primary MD and ID specialist - s/p transfusion 3. Port infection -ID following Louis Chambers MD Mar 14, 2020 15:33
[2020-03-14 16:00] VITALS: BP 91/59
[2020-03-14 18:37] VITALS: BP 108/80
--- NOTE | 2020-03-14 18:40 | NUR ---
NURSE NOTES: Patient medicated for pain.Call light within reach.Will follow up .
--- NOTE | 2020-03-14 19:25 | NUR ---
NURSE NOTES: Received report from TRICE Lockhart. Pt is in bed with no needs and in no distress at this time. Call light within reach, bed locked and in lowest position. Pt is in no pain at this time. Will continue to monitor.
--- NOTE | 2020-03-14 19:30 | NUR ---
NURSE HAND-OFF: Presley CARNES Important Events on Shift:[ ]Pain medication,Phosphorus level l today 2.1,Doctor aware with orders received . Diet: Regular[] Pending Orders: [] Pending Results/Labs:[] Pending MD notification:[] Latest Vital Signs: Temperature 98.2 , Pulse 88 , B/P 108 /80 , Respiratory Rate 18 , O2 SAT 94 , Nasal Cannula, O2 Flow Rate 3 . Vital Sign Comment: [] Latest Whitt Fall Score: 35 Fall Risk: Medium Risk Safety Measures: Call light Within Reach, Bed Alarm Zone 1, Side Rails Side Rails x2, Bed position Low and Locked. Fall Precautions: Yellow Socks Report given to [].
--- NOTE | 2020-03-14 19:33 | Internal Med Progress Note ---
Subjective Date of Service: Mar 14, 2020 Physician Name Roberth Swain Attending Physician Mike Fernandez MD Current Medications Medications (Trade) Dose Ordered Sig/Baljeet Route PRN Reason Start Time Stop Time Status Last Admin Dose Admin Acetaminophen (Tylenol) 650 mg Q6H PRN ORAL Temp >100.5/ mild pain (1-3) 03/11/20 00:45 04/10/20 00:44 03/13/20 16:10 Albuterol Sulfate (Proventil I) 2 puff Q4H PRN INH Shortness of Breath 03/11/20 00:45 06/09/20 00:44 03/13/20 09:50 Chlorhexidine Gluconate (Tatiana-Hex 2%) 1 applic BEDTIME TOPIC 03/11/20 21:00 06/09/20 20:59 03/13/20 21:00 Diphenhydramine HCl (Benadryl) 50 mg Q6H PRN IVP Itching 03/11/20 00:45 04/10/20 00:44 03/14/20 19:04 Folic Acid (Folate) 1 mg DAILY ORAL 03/12/20 09:00 04/11/20 08:59 03/14/20 09:54 Heparin Sodium (Porcine) (Heparin 5000 units/ml) 5,000 units EVERY 8 HOURS SUBQ 03/11/20 06:00 04/25/20 05:59 03/14/20 14:48 Hydromorphone HCl 2 mg/Sodium Chloride 56 ml @ 224 mls/hr Q4H PRN IVPB Moderate Pain (Pain Scale 4-6) 03/11/20 07:30 03/18/20 07:29 03/12/20 05:31 Hydromorphone HCl 4 mg/Sodium Chloride 57 ml @ 228 mls/hr Q4H PRN IVPB Severe Pain (Pain Scale 7-10) 03/11/20 07:30 03/18/20 07:29 03/14/20 18:40 Hydroxyurea (Hydrea) 500 mg TWICE A DAY ORAL 03/13/20 09:00 03/18/20 08:59 03/14/20 18:41 Meropenem 2 gm/ Sodium Chloride 55 ml @ 110 mls/hr Q8HR IVPB 03/11/20 14:00 03/16/20 13:59 03/14/20 15:42 Ondansetron HCl (Zofran) 4 mg EVERY 4 HOURS PRN IVP Nausea & Vomiting 03/11/20 00:45 04/10/20 00:44 Phosphorus (Phospha 250 Neutral) 500 mg THREE TIMES A DAY ORAL 03/14/20 14:30 03/16/20 08:00 03/14/20 18:51 Allergies: Coded Allergies: SULFAMETHOXAZOLE (Verified Allergy, Unknown, hives, 03/11/20) TRIMETHOPRIM (Verified Allergy, Unknown, hives, 03/11/20) ROS Limited/Unobtainable: No Constitutional: Reports: no symptoms HEENT: Reports: no symptoms Cardiovascular: Reports: no symptoms Respiratory: Reports: no symptoms Gastrointestinal/Abdominal: Reports: no symptoms Genitourinary: Reports: no symptoms Neurologic/Psychiatric: Reports: no symptoms Subjective 44 YO F admitted with shortness of breath. Now COVID 19 pos and line sepsis. Cover for Int Shailesh-DR Fernandez Objective Last Vital Signs Date Time Temp Pulse Resp B/P (MAP) Pulse Ox O2 Delivery O2 Flow Rate FiO2 03/14/20 18:37 98.2 88 18 108/80 (89) 94 03/14/20 09:00 Room Air 03/11/20 17:12 3 Laboratory Tests Test 03/14/20 06:00 White Blood Count 7.5 K/UL (4.8-10.8) Red Blood Count 2.71 M/UL (4.20-5.40) L Hemoglobin 8.2 G/DL (12.0-16.0) L Hematocrit 26.4 % (37.0-47.0) L Mean Corpuscular Volume 97 FL (80-99) Mean Corpuscular Hemoglobin 30.2 PG (27.0-31.0) Mean Corpuscular Hemoglobin Concent 31.0 G/DL (32.0-36.0) L Red Cell Distribution Width 19.6 % (11.6-14.8) H Platelet Count 291 K/UL (150-450) Mean Platelet Volume 7.9 FL (6.5-10.1) Neutrophils (%) (Auto) 71.3 % (45.0-75.0) Lymphocytes (%) (Auto) 15.1 % (20.0-45.0) L Monocytes (%) (Auto) 10.3 % (1.0-10.0) H Eosinophils (%) (Auto) 0.2 % (0.0-3.0) Basophils (%) (Auto) 3.1 % (0.0-2.0) H Sodium Level 139 MMOL/L (136-145) Potassium Level 3.8 MMOL/L (3.5-5.1) Chloride Level 108 MMOL/L (98-107) H Carbon Dioxide Level 25 MMOL/L (21-32) Anion Gap 6 mmol/L (5-15) Blood Urea Nitrogen 10 mg/dL (7-18) Creatinine 1.1 MG/DL (0.55-1.30) Estimat Glomerular Filtration Rate > 60 mL/min (>60) Glucose Level 89 MG/DL (74-106) Calcium Level 7.3 MG/DL (8.5-10.1) L Phosphorus Level 2.1 MG/DL (2.5-4.9) L Magnesium Level 2.1 MG/DL (1.8-2.4) Total Bilirubin 1.5 MG/DL (0.2-1.0) H Direct Bilirubin 0.3 MG/DL (0.0-0.3) Aspartate Amino Transf (AST/SGOT) 37 U/L (15-37) Alanine Aminotransferase (ALT/SGPT) 18 U/L (12-78) Alkaline Phosphatase 72 U/L (46-116) Total Protein 7.3 G/DL (6.4-8.2) Albumin 2.5 G/DL (3.4-5.0) L Globulin 4.8 g/dL Albumin/Globulin Ratio 0.5 (1.0-2.7) L Microbiology Date/Time Source Procedure Growth Status 03/12/20 15:00 Blood Blood Culture - Preliminary NO GROWTH AFTER 24 HOURS Resulted Intake and Output 03/13/20 03/14/20 19:00 07:00 Intake Total 240 ml 260 ml Balance 240 ml 260 ml Intake Oral 240 ml Other 260 ml # Voids 2 2 Objective Objective General: No acute distress, awake and alert HEENT: NCAT, sclera anicteric, PERRL, EOMI. Neck: Supple, no significant jugular venous distention, Lungs: Fair inspiratory effort, , clear to auscultation bilaterally, no Wheeze or Rales. CHEST WALL: surgical incision intact. Heart: Regular rate and rhythm, normal S1/S2, no murmurs/gallops Abdomen: soft, nontender, nondistended. Normoactive bowel sounds. / Rectal: Refused and deferred. Extremities: No Cyanosis , clubbing or edema. right femoral triple-lumen catheter. Neuro: A&O x 3, Able to move all extremities Skin: warm, no rashes or lesions Psych: Normal mood and affect Assessment/Plan Assessment/Plan Assessment/Plan Assessment/Plan ASSESSMENT: This is a 44-year-old female: 1. Infected Port-A-Cath. 2. COVID-19 Pneumonia. 3. Severe sickle cell anemia. 4. Sickle cell crisis. 5. Severe Anemia. TREATMENT: 1. Line sepsis. An Infectious Diseases consultation has been obtained with Dr. Herron . Abx: Meropenem monitor cultures. 2. Severe sickle cell anemia/sickle cell crisis. A Hematology/Oncology consultation has been obtained with Dr. Horne. The patient is currently receiving intravenous Dilaudid for pain control. 3. S/P kaden a cath removal 03/14/20 DVT prophylaxis heparin subcu Monitor laboratory. Roberth Swain MD Mar 14, 2020 19:33
[2020-03-14 20:00] VITALS: BP 95/56
[2020-03-14] MEDS: Dyna-Hex 2% Top Sol 2oz TOPIC SCH (21:26)
[2020-03-15] VITALS: BP 102/63
[2020-03-15] MEDS: DiphenhydrAMINE 50mg/ml Inj IVP PRN ×4 (00:56→20:35)
[2020-03-15] MEDS: NS IVPB PRN ×4 (00:58→20:36)
[2020-03-15] MEDS: HYDROMORPHONE IVPB PRN ×4 (00:58→20:36)
[2020-03-15 04:00] VITALS: BP 98/61
[2020-03-15] MEDS: Meropenem 2 GM in NS 55 ML IVPB SCH ×3 (05:24→21:23)
[2020-03-15] MEDS: Heparin 5000 units/ml inj SUBQ SCH ×3 (05:26→21:25)
--- NOTE | 2020-03-15 06:40 | Hematology/Onc Progress Note ---
Assessment/Plan Assessment/Plan Assessment/Plan # Sickle cell disease sickle cell anemia --> hgb 5-->7.7->8.2 --> s/p transfusion --> will obtain anemia panel-->reviewed --> for sickle cell, r/o hemolysis, confirm sickle cell and obtain ldh, hapto, retic-->reviewed --> transfuse as needed --> outpatient heme --> dilaudid for pain control # Leukocytosis due to COVID-19 pneumonia; COVID-19 positive 03/10/20 at [facility] -> Patient is currently afebrile and normoxemic on room air --> Patient was briefly given low flow oxygen via nasal cannula overnight --> Monitor for hypoxia and provide supplemental oxygen as needed --> per pulm --> Abx meropenem --> wbc 16-->7.5 # Port infection --> ID following --> Benyamini has removed # Dehydration --> goal euvolemia # Dvt ppx heparin sq Appreciate consultation and nicholas rn Subjective HEENT: Denies: no symptoms, eye pain, blurred vision, tearing, double vision, ear pain, ear discharge, nose pain, nose congestion, throat pain, throat swelling, mouth pain, mouth swelling, other Cardiovascular: Denies: no symptoms, chest pain, edema, irregular heart rate, lightheadedness, palpitations, syncope, other Gastrointestinal/Abdominal: Denies: no symptoms, abdomen distended, abdominal pain, black stools, tarry stools, blood in stool, constipated, diarrhea, difficulty swallowing, nausea, poor appetite, poor fluid intake, rectal bleeding, vomiting, other Neurologic/Psychiatric: Denies: no symptoms, anxiety, depressed, emotional problems, headache, numbness, paresthesia, pre-existing deficit, seizure, tingling, tremors, weakness, other Endocrine: Denies: no symptoms, excessive sweating, flushing, intolerance to cold, intolerance to heat, increased hunger, increased thirst, increased urine, unexplained weight gain, unexplained weight loss, other Allergies: Coded Allergies: SULFAMETHOXAZOLE (Verified Allergy, Unknown, hives, 03/11/20) TRIMETHOPRIM (Verified Allergy, Unknown, hives, 03/11/20) Subjective 03/13 nicholas Rn in the am, have started on hydroxyurea, and folic acid 2/7 labs reviewed, meds noted, hgb stable, sickle screen+ Objective Objective Current Medications Medications (Trade) Dose Ordered Sig/Baljeet Route PRN Reason Start Time Stop Time Status Last Admin Dose Admin Acetaminophen (Tylenol) 650 mg Q6H PRN ORAL Temp >100.5/ mild pain (1-3) 03/11/20 00:45 04/10/20 00:44 03/13/20 16:10 Albuterol Sulfate (Proventil MDI) 2 puff Q4H PRN INH Shortness of Breath 03/11/20 00:45 06/09/20 00:44 03/13/20 09:50 Chlorhexidine Gluconate (Tatiana-Hex 2%) 1 applic BEDTIME TOPIC 03/11/20 21:00 06/09/20 20:59 03/14/20 21:26 Diphenhydramine HCl (Benadryl) 50 mg Q6H PRN IVP Itching 03/11/20 00:45 04/10/20 00:44 03/15/20 00:56 Folic Acid (Folate) 1 mg DAILY ORAL 03/12/20 09:00 04/11/20 08:59 03/14/20 09:54 Heparin Sodium (Porcine) (Heparin 5000 units/ml) 5,000 units EVERY 8 HOURS SUBQ 03/11/20 06:00 04/25/20 05:59 03/15/20 05:26 Hydromorphone HCl 2 mg/Sodium Chloride 56 ml @ 224 mls/hr Q4H PRN IVPB Moderate Pain (Pain Scale 4-6) 03/11/20 07:30 03/18/20 07:29 03/12/20 05:31 Hydromorphone HCl 4 mg/Sodium Chloride 57 ml @ 228 mls/hr Q4H PRN IVPB Severe Pain (Pain Scale 7-10) 03/11/20 07:30 03/18/20 07:29 03/15/20 00:58 Hydroxyurea (Hydrea) 500 mg TWICE A DAY ORAL 03/13/20 09:00 03/18/20 08:59 03/14/20 18:41 Meropenem 2 gm/ Sodium Chloride 55 ml @ 110 mls/hr Q8HR IVPB 03/11/20 14:00 03/16/20 13:59 03/15/20 05:24 Ondansetron HCl (Zofran) 4 mg EVERY 4 HOURS PRN IVP Nausea & Vomiting 03/11/20 00:45 04/10/20 00:44 Phosphorus (Phospha 250 Neutral) 500 mg THREE TIMES A DAY ORAL 03/14/20 14:30 03/16/20 08:00 03/14/20 18:51 Last 24 Hour Vital Signs Date Time Temp Pulse Resp B/P (MAP) Pulse Ox O2 Delivery O2 Flow Rate FiO2 03/15/20 04:00 98.9 78 18 98/61 (73) 95 03/15/20 00:00 99.4 80 18 102/63 (76) 96 03/14/20 21:00 Room Air 03/14/20 20:00 99.1 85 18 95/56 (69) 95 03/14/20 18:37 98.2 88 18 108/80 (89) 94 03/14/20 16:00 98.2 88 18 91/59 (70) 94 03/14/20 12:00 100.4 95 18 106/65 (79) 96 03/14/20 09:00 Room Air 03/14/20 04:00 98.1 79 18 94/51 (65) 96 03/14/20 00:00 96.5 84 17 143/69 (93) 92 03/13/20 21:00 Room Air 03/13/20 20:00 97.3 89 17 101/59 (73) 94 03/13/20 16:40 99.1 03/13/20 16:00 98.8 87 18 113/77 (89) 97 03/13/20 12:00 99.1 87 20 116/69 (85) 97 03/13/20 09:00 Room Air 03/13/20 08:00 97.7 84 18 103/62 (76) 95 Intake and Output 03/14/20 03/15/20 19:00 07:00 Intake Total 960 ml Balance 960 ml Intake Oral 960 ml # Voids 5 Labs Test 03/12/20 15:00 03/14/20 06:00 03/15/20 04:30 White Blood Count 8.5 K/UL (4.8-10.8) 7.5 K/UL (4.8-10.8) Red Blood Count 2.49 M/UL (4.20-5.40) 2.71 M/UL (4.20-5.40) Hemoglobin 7.7 G/DL (12.0-16.0) 8.2 G/DL (12.0-16.0) Hematocrit 24.6 % (37.0-47.0) 26.4 % (37.0-47.0) Mean Corpuscular Volume 99 FL (80-99) 97 FL (80-99) Mean Corpuscular Hemoglobin 30.8 PG (27.0-31.0) 30.2 PG (27.0-31.0) Mean Corpuscular Hemoglobin Concent 31.3 G/DL (32.0-36.0) 31.0 G/DL (32.0-36.0) Red Cell Distribution Width 20.1 % (11.6-14.8) 19.6 % (11.6-14.8) Platelet Count 293 K/UL (150-450) 291 K/UL (150-450) Mean Platelet Volume 7.3 FL (6.5-10.1) 7.9 FL (6.5-10.1) Neutrophils (%) (Auto) % (45.0-75.0) 71.3 % (45.0-75.0) Lymphocytes (%) (Auto) % (20.0-45.0) 15.1 % (20.0-45.0) Monocytes (%) (Auto) % (1.0-10.0) 10.3 % (1.0-10.0) Eosinophils (%) (Auto) % (0.0-3.0) 0.2 % (0.0-3.0) Basophils (%) (Auto) % (0.0-2.0) 3.1 % (0.0-2.0) Differential Total Cells Counted 100 Neutrophils % (Manual) 50 % (45-75) Lymphocytes % (Manual) 39 % (20-45) Monocytes % (Manual) 4 % (1-10) Eosinophils % (Manual) 6 % (0-3) Basophils % (Manual) 1 % (0-2) Band Neutrophils 0 % (0-8) Platelet Estimate Adequate Platelet Morphology Normal Hypochromasia 2+ Anisocytosis 3+ Macrocytosis 1+ Reticulocyte Count 2.2 % (0.5-2.0) Sickle Cell Screen Positive (Negative) Sodium Level 139 MMOL/L (136-145) 139 MMOL/L (136-145) Potassium Level 4.0 MMOL/L (3.5-5.1) 3.8 MMOL/L (3.5-5.1) Chloride Level 109 MMOL/L (98-107) 108 MMOL/L (98-107) Carbon Dioxide Level 25 MMOL/L (21-32) 25 MMOL/L (21-32) Anion Gap 5 mmol/L (5-15) 6 mmol/L (5-15) Blood Urea Nitrogen 7 mg/dL (7-18) 10 mg/dL (7-18) Creatinine 1.0 MG/DL (0.55-1.30) 1.1 MG/DL (0.55-1.30) Estimat Glomerular Filtration Rate > 60 mL/min (>60) > 60 mL/min (>60) Glucose Level 93 MG/DL (74-106) 89 MG/DL (74-106) Calcium Level 7.2 MG/DL (8.5-10.1) 7.3 MG/DL (8.5-10.1) Iron Level 34 ug/dL (50-175) Total Iron Binding Capacity 211 ug/dL (250-450) Percent Iron Saturation 16 % (15-50) Unsaturated Iron Binding 177 ug/dL (112-346) Ferritin 108 NG/ML (8-388) Lactate Dehydrogenase 429 U/L (81-234) Vitamin B12 Level 519 PG/ML (193-986) Folate 13.3 NG/ML (8.6-58.9) Phosphorus Level 2.1 MG/DL (2.5-4.9) Magnesium Level 2.1 MG/DL (1.8-2.4) Total Bilirubin 1.5 MG/DL (0.2-1.0) Direct Bilirubin 0.3 MG/DL (0.0-0.3) Aspartate Amino Transf (AST/SGOT) 37 U/L (15-37) Alanine Aminotransferase (ALT/SGPT) 18 U/L (12-78) Alkaline Phosphatase 72 U/L (46-116) Total Protein 7.3 G/DL (6.4-8.2) Albumin 2.5 G/DL (3.4-5.0) Globulin 4.8 g/dL Albumin/Globulin Ratio 0.5 (1.0-2.7) Height (Feet): 5 Height (Inches): 1.00 Weight (Pounds): 130 Objective PHYSICAL EXAMINATION: VITAL SIGNS: reviewed General: Patient sitting up in bed getting IV access by a nurse, not in respiratory distress at the moment on room air HEENT: Head exam reveals that the head is normocephalic, atraumatic without deformity or unusual swelling. Right hazy eye CHEST AND LUNGS: Reveals clear, normal, symmetrical breath sounds with no adventitious sounds. CARDIOVASCULAR: Reveals normal S1, S2 without murmurs, rubs, or clicks. ABDOMEN: Soft with no tenderness or organomegaly. RECTAL: Deferred. MUSCULOSKELETAL: There is no tenderness to palpation. Range of motion is normal. NEUROLOGICAL: Alert and oriented x3 , nonfocal Redd Horne MD Mar 15, 2020 06:39
[2020-03-15 06:50] LABS: EOSINOPHILS % (AUTO) 0.2 % (0.0-3.0); HEMATOCRIT 26.3 % (37.0-47.0); LYMPHOCYTES % (AUTO) 35.3 % (20.0-45.0); MEAN CORPUSCULAR VOLUME 99 FL (80-99); MONOCYTES % (AUTO) 6.1 % (1.0-10.0); NEUTROPHILS % (AUTO) 57.4 % (45.0-75.0); PLATELET COUNT 241 K/UL (150-450); RED BLOOD COUNT 2.66 M/UL (4.20-5.40); RED CELL DISTRIBUTION WIDTH 18.7 % (11.6-14.8); WHITE BLOOD COUNT 7.6 K/UL (4.8-10.8)
--- NOTE | 2020-03-15 07:05 | NUR ---
NURSE HAND-OFF: Important Events on Shift: pain management Patient Status: calm Diet: regular Pending Orders: Pending Results/Labs: Pending MD notification: Latest Vital Signs: Temperature 98.9 , Pulse 78 , B/P 98 /61 , Respiratory Rate 18 , O2 SAT 95 , Nasal Cannula, O2 Flow Rate 3 . Vital Sign Comment: VSS Latest Whitt Fall Score: 35 Fall Risk: Medium Risk Safety Measures: Call light Within Reach, Bed Alarm Zone 1, Side Rails Side Rails x2, Bed position Low and Locked. Fall Precautions: Yellow Socks Report given to TRICE Aguayo.
[2020-03-15 07:08] LABS: CALCIUM 7.1 MG/DL (8.5-10.1); CREATININE 1.2 MG/DL (0.55-1.30); POTASSIUM 3.9 MMOL/L (3.5-5.1)
[2020-03-15 08:00] VITALS: BP 98/66
--- NOTE | 2020-03-15 08:00 | NUR ---
NURSE NOTES: Received patient lying in bed. Patient is AA/Or x4. In room air, in NAD,respirations are even and unlabored. Patient has a central IV access R femoral TLC. Skin is intact. Bed locked at the lowest position possible. Call light within easy reach. Side rails up x3. Will continue to monitor patient and follow up with the plan of care.
[2020-03-15] MEDS: Hydroxyurea 500mg cap ORAL SCH ×2 (08:19→18:08)
[2020-03-15] MEDS: Phospha 250 Neutral tab ORAL SCH ×3 (08:19→18:08)
--- NOTE | 2020-03-15 10:35 | Infectious Diseases Prog Note ---
Assessment/Plan 44yo F with: Acinetobacter baumanii bacteremia, CLABSI Afebrile Leukocytosis to 15 Port infection, dx'd by her Heme/onc doctor at [facility], Dr. Sampson Lazaro (I spoke with him on the phone to obtain the following results) 01/07 BCx Acinetobacter pitti S-bactrim, levoflox, meropenem, gent, amikacin Was on levoflox then bactrim for this 02/05 BCx Acinetobacter baumanni complex 03/02 BCx Acinetobacter baumanni, S-amikacin, ant, minocycline Was on IV abx for this, then on minocycline 03/11 BCx NTD 03/11 Port removal, R fem central line placed for access TTE neg for vegetations 03/12 BCx NTD COVID pneumonia Satting well on RA Afebrile 03/10 COVID PCR positive at [facility] Flu neg CXR: Patchy bilateral infiltrates. Findings related to multifocal pneumonia. Clinical correlation and follow-up recommended. Sickle cell disease Anemia to 5s HIV screen neg Plan: Cont meropenem #5/ to target Acinetobacter in prior BCx from [facility] Given neg BCx, ok for PICC line placement tomorrow Monday No current tx for COVID indicated given satting well on RA F/u BCx - NTD Monitor CBC/CMP Monitor temp curve, hemodynamics Monitor resp status COVID isolation D/w RN Thank you for this consult. [facility] will continue to follow. Subjective Allergies: Coded Allergies: SULFAMETHOXAZOLE (Verified Allergy, Unknown, hives, 03/11/20) TRIMETHOPRIM (Verified Allergy, Unknown, hives, 03/11/20) AF NAD Breathing stable on RA WBC 7.6 Doing well Objective Last 24 Hour Vital Signs Date Time Temp Pulse Resp B/P (MAP) Pulse Ox O2 Delivery O2 Flow Rate FiO2 03/15/20 08:00 96.3 85 18 98/66 (77) 100 03/15/20 04:00 98.9 78 18 98/61 (73) 95 03/15/20 00:00 99.4 80 18 102/63 (76) 96 03/14/20 21:00 Room Air 03/14/20 20:00 99.1 85 18 95/56 (69) 95 03/14/20 18:37 98.2 88 18 108/80 (89) 94 03/14/20 16:00 98.2 88 18 91/59 (70) 94 03/14/20 12:00 100.4 95 18 106/65 (79) 96 Height (Feet): 5 Height (Inches): 1.00 Weight (Pounds): 130 Gen: NAD HEENT: NCAT, R eye white Pulm: BL chest rise on RA Abd: Non-distended Ext: No c/c/e Skin: No visible rashes Neuro: Awake, alert, interactive Lines: R fem CVC dressing c/d/i Microbiology Date/Time Source Procedure Growth Status 03/12/20 15:00 Blood Blood Culture - Preliminary NO GROWTH AFTER 48 HOURS Resulted Laboratory Tests Test 03/15/20 04:30 White Blood Count 7.6 K/UL (4.8-10.8) Red Blood Count 2.66 M/UL (4.20-5.40) L Hemoglobin 8.0 G/DL (12.0-16.0) L Hematocrit 26.3 % (37.0-47.0) L Mean Corpuscular Volume 99 FL (80-99) Mean Corpuscular Hemoglobin 30.1 PG (27.0-31.0) Mean Corpuscular Hemoglobin Concent 30.5 G/DL (32.0-36.0) L Red Cell Distribution Width 18.7 % (11.6-14.8) H Platelet Count 241 K/UL (150-450) Mean Platelet Volume 7.8 FL (6.5-10.1) Neutrophils (%) (Auto) 57.4 % (45.0-75.0) Lymphocytes (%) (Auto) 35.3 % (20.0-45.0) Monocytes (%) (Auto) 6.1 % (1.0-10.0) Eosinophils (%) (Auto) 0.2 % (0.0-3.0) Basophils (%) (Auto) 1.0 % (0.0-2.0) Sodium Level 138 MMOL/L (136-145) Potassium Level 3.9 MMOL/L (3.5-5.1) Chloride Level 107 MMOL/L (98-107) Carbon Dioxide Level 24 MMOL/L (21-32) Anion Gap 8 mmol/L (5-15) Blood Urea Nitrogen 12 mg/dL (7-18) Creatinine 1.2 MG/DL (0.55-1.30) Estimat Glomerular Filtration Rate 59.4 mL/min (>60) Glucose Level 82 MG/DL (74-106) Calcium Level 7.1 MG/DL (8.5-10.1) L Current Medications Medications (Trade) Dose Ordered Sig/Baljeet Route PRN Reason Start Time Stop Time Status Last Admin Dose Admin Acetaminophen (Tylenol) 650 mg Q6H PRN ORAL Temp >100.5/ mild pain (1-3) 03/11/20 00:45 04/10/20 00:44 03/13/20 16:10 Albuterol Sulfate (Proventil MDI) 2 puff Q4H PRN INH Shortness of Breath 03/11/20 00:45 06/09/20 00:44 03/13/20 09:50 Chlorhexidine Gluconate (Tatiana-Hex 2%) 1 applic BEDTIME TOPIC 03/11/20 21:00 06/09/20 20:59 03/14/20 21:26 Diphenhydramine HCl (Benadryl) 50 mg Q6H PRN IVP Itching 03/11/20 00:45 04/10/20 00:44 03/15/20 08:19 Folic Acid (Folate) 1 mg DAILY ORAL 03/12/20 09:00 04/11/20 08:59 03/15/20 08:19 Heparin Sodium (Porcine) (Heparin 5000 units/ml) 5,000 units EVERY 8 HOURS SUBQ 03/11/20 06:00 04/25/20 05:59 03/15/20 05:26 Hydromorphone HCl 2 mg/Sodium Chloride 56 ml @ 224 mls/hr Q4H PRN IVPB Moderate Pain (Pain Scale 4-6) 03/11/20 07:30 03/18/20 07:29 03/12/20 05:31 Hydromorphone HCl 4 mg/Sodium Chloride 57 ml @ 228 mls/hr Q4H PRN IVPB Severe Pain (Pain Scale 7-10) 03/11/20 07:30 03/18/20 07:29 03/15/20 08:18 Hydroxyurea (Hydrea) 500 mg TWICE A DAY ORAL 03/13/20 09:00 03/18/20 08:59 03/15/20 08:19 Meropenem 2 gm/ Sodium Chloride 55 ml @ 110 mls/hr Q8HR IVPB 03/11/20 14:00 03/16/20 13:59 03/15/20 05:24 Ondansetron HCl (Zofran) 4 mg EVERY 4 HOURS PRN IVP Nausea & Vomiting 03/11/20 00:45 04/10/20 00:44 Phosphorus (Phospha 250 Neutral) 500 mg THREE TIMES A DAY ORAL 03/14/20 14:30 03/16/20 08:00 03/15/20 08:19 Rupali Herron M.D. Mar 15, 2020 10:35
--- NOTE | 2020-03-15 11:20 | Pulmonology Progress Note ---
Subjective ROS Limited/Unobtainable: No Interval Events: None new Constitutional: Reports: no symptoms HEENT: Repors: no symptoms Respiratory: Reports: no symptoms Cardiovascular: Reports: no symptoms Gastrointestinal/Abdominal: Reports: no symptoms Allergies: Coded Allergies: SULFAMETHOXAZOLE (Verified Allergy, Unknown, hives, 03/11/20) TRIMETHOPRIM (Verified Allergy, Unknown, hives, 03/11/20) Objective Last 24 Hour Vital Signs Date Time Temp Pulse Resp B/P (MAP) Pulse Ox O2 Delivery O2 Flow Rate FiO2 03/15/20 08:00 96.3 85 18 98/66 (77) 100 03/15/20 04:00 98.9 78 18 98/61 (73) 95 03/15/20 00:00 99.4 80 18 102/63 (76) 96 03/14/20 21:00 Room Air 03/14/20 20:00 99.1 85 18 95/56 (69) 95 03/14/20 18:37 98.2 88 18 108/80 (89) 94 03/14/20 16:00 98.2 88 18 91/59 (70) 94 03/14/20 12:00 100.4 95 18 106/65 (79) 96 Intake and Output 03/14/20 03/15/20 19:00 07:00 Intake Total 960 ml Balance 960 ml Intake Oral 960 ml # Voids 5 General Appearance: no acute distress Respiratory: lungs clear Cardiovascular: normal rate Abdomen: soft, non tender Microbiology Date/Time Source Procedure Growth Status 03/12/20 15:00 Blood Blood Culture - Preliminary NO GROWTH AFTER 48 HOURS Resulted Laboratory Tests 03/15/20 04:30: White Blood Count 7.6, Red Blood Count 2.66L, Hemoglobin 8.0L, Hematocrit 26.3L, Mean Corpuscular Volume 99, Mean Corpuscular Hemoglobin 30.1, Mean Corpuscular Hemoglobin Concent 30.5L, Red Cell Distribution Width 18.7H, Platelet Count 241, Mean Platelet Volume 7.8, Neutrophils (%) (Auto) 57.4, Lymphocytes (%) (Auto) 35.3, Monocytes (%) (Auto) 6.1, Eosinophils (%) (Auto) 0.2, Basophils (%) (Auto) 1.0, Sodium Level 138, Potassium Level 3.9, Chloride Level 107, Carbon Dioxide Level 24, Anion Gap 8, Blood Urea Nitrogen 12, Creatinine 1.2, Estimat Glomerular Filtration Rate 59.4, Glucose Level 82, Calcium Level 7.1L Current Medications Medications (Trade) Dose Ordered Sig/Baljeet Route PRN Reason Start Time Stop Time Status Last Admin Dose Admin Acetaminophen (Tylenol) 650 mg Q6H PRN ORAL Temp >100.5/ mild pain (1-3) 03/11/20 00:45 04/10/20 00:44 03/13/20 16:10 Albuterol Sulfate (Proventil MDI) 2 puff Q4H PRN INH Shortness of Breath 03/11/20 00:45 06/09/20 00:44 03/13/20 09:50 Chlorhexidine Gluconate (Tatiana-Hex 2%) 1 applic BEDTIME TOPIC 03/11/20 21:00 06/09/20 20:59 03/14/20 21:26 Diphenhydramine HCl (Benadryl) 50 mg Q6H PRN IVP Itching 03/11/20 00:45 04/10/20 00:44 03/15/20 08:19 Folic Acid (Folate) 1 mg DAILY ORAL 03/12/20 09:00 04/11/20 08:59 03/15/20 08:19 Heparin Sodium (Porcine) (Heparin 5000 units/ml) 5,000 units EVERY 8 HOURS SUBQ 03/11/20 06:00 04/25/20 05:59 03/15/20 05:26 Hydromorphone HCl 2 mg/Sodium Chloride 56 ml @ 224 mls/hr Q4H PRN IVPB Moderate Pain (Pain Scale 4-6) 03/11/20 07:30 03/18/20 07:29 03/12/20 05:31 Hydromorphone HCl 4 mg/Sodium Chloride 57 ml @ 228 mls/hr Q4H PRN IVPB Severe Pain (Pain Scale 7-10) 03/11/20 07:30 03/18/20 07:29 03/15/20 08:18 Hydroxyurea (Hydrea) 500 mg TWICE A DAY ORAL 03/13/20 09:00 03/18/20 08:59 03/15/20 08:19 Meropenem 2 gm/ Sodium Chloride 55 ml @ 110 mls/hr Q8HR IVPB 03/11/20 14:00 03/16/20 13:59 03/15/20 05:24 Ondansetron HCl (Zofran) 4 mg EVERY 4 HOURS PRN IVP Nausea & Vomiting 03/11/20 00:45 04/10/20 00:44 Phosphorus (Phospha 250 Neutral) 500 mg THREE TIMES A DAY ORAL 03/14/20 14:30 03/16/20 08:00 03/15/20 08:19 Assessment/Plan Assessment/Plan 1. COVID-19 pneumonia; COVID-19 positive 03/10/20 at [facility] -Patient is currently afebrile and normoxemic on room air -Patient was briefly given low flow oxygen via nasal cannula -Monitor for hypoxia and provide supplemental oxygen as needed -At this time, no indication for specific therapy for COVID-19 2. Sickle cell disease sickle cell anemia -Per primary MD and ID specialist - s/p transfusion 3. Port infection -ID following Louis Chambers MD Mar 15, 2020 11:20
[2020-03-15 12:00] VITALS: BP 93/60
--- NOTE | 2020-03-15 13:24 | Surgery Progress Note ---
Surgery Progress Note Subjective Procedure Performed 1. removal of infected left chest wall port 2. central venous catheter insertion Symptoms: improved, tolerating diet, voiding well, passing flatus, BM Objective Last 24 Hour Vital Signs Date Time Temp Pulse Resp B/P (MAP) Pulse Ox O2 Delivery O2 Flow Rate FiO2 03/15/20 12:00 98.4 80 18 93/60 (71) 98 03/15/20 09:00 Room Air 03/15/20 08:48 98.9 03/15/20 08:00 96.3 85 18 98/66 (77) 100 03/15/20 04:00 98.9 78 18 98/61 (73) 95 03/15/20 00:00 99.4 80 18 102/63 (76) 96 03/14/20 21:00 Room Air 03/14/20 20:00 99.1 85 18 95/56 (69) 95 03/14/20 18:37 98.2 88 18 108/80 (89) 94 03/14/20 16:00 98.2 88 18 91/59 (70) 94 I&O Intake and Output 03/14/20 03/15/20 19:00 07:00 Intake Total 960 ml Balance 960 ml Intake Oral 960 ml # Voids 5 Dressing: dry Wound: clean Cardiovascular: RSR Respiratory: clear Abdomen: soft, non-tender, present bowel sounds, non-distended Extremities: no edema, no tenderness, no cyanosis, pulses, other Laboratory Tests Test 03/15/20 04:30 White Blood Count 7.6 K/UL (4.8-10.8) Red Blood Count 2.66 M/UL (4.20-5.40) L Hemoglobin 8.0 G/DL (12.0-16.0) L Hematocrit 26.3 % (37.0-47.0) L Mean Corpuscular Volume 99 FL (80-99) Mean Corpuscular Hemoglobin 30.1 PG (27.0-31.0) Mean Corpuscular Hemoglobin Concent 30.5 G/DL (32.0-36.0) L Red Cell Distribution Width 18.7 % (11.6-14.8) H Platelet Count 241 K/UL (150-450) Mean Platelet Volume 7.8 FL (6.5-10.1) Neutrophils (%) (Auto) 57.4 % (45.0-75.0) Lymphocytes (%) (Auto) 35.3 % (20.0-45.0) Monocytes (%) (Auto) 6.1 % (1.0-10.0) Eosinophils (%) (Auto) 0.2 % (0.0-3.0) Basophils (%) (Auto) 1.0 % (0.0-2.0) Sodium Level 138 MMOL/L (136-145) Potassium Level 3.9 MMOL/L (3.5-5.1) Chloride Level 107 MMOL/L (98-107) Carbon Dioxide Level 24 MMOL/L (21-32) Anion Gap 8 mmol/L (5-15) Blood Urea Nitrogen 12 mg/dL (7-18) Creatinine 1.2 MG/DL (0.55-1.30) Estimat Glomerular Filtration Rate 59.4 mL/min (>60) Glucose Level 82 MG/DL (74-106) Calcium Level 7.1 MG/DL (8.5-10.1) L Plan Problems: (1) Sickle cell crisis (2) infected portacath Assessment & Plan: 44-year-old female with infected implanted left chest wall port. Cultures were taken by her real estate sales associate and doctors who are reviewed by her infectious these doctors and discussed me as well. Infection grew from the port. Port does need to be removed patient recent fevers and being somatic. Plan for port removal. Will likely need temporary line in the meantime given her requirements. Long discussion at the bedside with patient. Consent obtained. We will plan for port removal. Thank you will follow recommendations Port is out micro reviewed Labs noted Heme input noted We will plan for PICC line on Monday and remove the central line and then discharge home (3) Sickle cell crisis David Farah Mar 15, 2020 13:24
[2020-03-15] MEDS ORDERED: Heparin1,000 units/500ml Premix(Conc:2 units/ml) IV PRN (13:30)
[2020-03-15] MEDS ORDERED: Lidocaine 1% Plain 30 ml INJ PRN (13:30)
--- NOTE | 2020-03-15 15:55 | Internal Med Progress Note ---
Subjective Date of Service: Mar 15, 2020 Physician Name Roberth Swain Attending Physician Mike Fernandez MD Current Medications Medications (Trade) Dose Ordered Sig/Baljeet Route PRN Reason Start Time Stop Time Status Last Admin Dose Admin Acetaminophen (Tylenol) 650 mg Q6H PRN ORAL Temp >100.5/ mild pain (1-3) 03/11/20 00:45 04/10/20 00:44 03/13/20 16:10 Albuterol Sulfate (Proventil ALIREZA) 2 puff Q4H PRN INH Shortness of Breath 03/11/20 00:45 06/09/20 00:44 03/13/20 09:50 Chlorhexidine Gluconate (Tatiana-Hex 2%) 1 applic BEDTIME TOPIC 03/11/20 21:00 06/09/20 20:59 03/14/20 21:26 Chlorhexidine Gluconate (Tatiana-Hex 2%) 1 applic DAILY@2000 TOPIC 03/15/20 20:00 06/13/20 19:59 Diphenhydramine HCl (Benadryl) 50 mg Q6H PRN IVP Itching 03/11/20 00:45 04/10/20 00:44 03/15/20 14:19 Folic Acid (Folate) 1 mg DAILY ORAL 03/12/20 09:00 04/11/20 08:59 03/15/20 08:19 Heparin Sodium (Porcine) (Heparin 5000 units/ml) 5,000 units EVERY 8 HOURS SUBQ 03/11/20 06:00 04/25/20 05:59 03/15/20 14:22 Heparin Sodium/ Sodium Chloride (Heparin 1000 units/500ml Premix) 1,000 unit ONCE PRN IV PICC LINE PLACEMENT 03/15/20 13:30 03/17/20 13:29 Hydromorphone HCl 2 mg/Sodium Chloride 56 ml @ 224 mls/hr Q4H PRN IVPB Moderate Pain (Pain Scale 4-6) 03/11/20 07:30 03/18/20 07:29 03/12/20 05:31 Hydromorphone HCl 4 mg/Sodium Chloride 57 ml @ 228 mls/hr Q4H PRN IVPB Severe Pain (Pain Scale 7-10) 03/11/20 07:30 03/18/20 07:29 03/15/20 14:19 Hydroxyurea (Hydrea) 500 mg TWICE A DAY ORAL 03/13/20 09:00 03/18/20 08:59 03/15/20 08:19 Lidocaine HCl (Xylocaine 1% 30ml) 30 ml ONCE PRN INJ PICC LINE PLACEMENT 03/15/20 13:30 03/17/20 13:29 Meropenem 2 gm/ Sodium Chloride 55 ml @ 110 mls/hr Q8HR IVPB 03/11/20 14:00 03/24/20 13:59 03/15/20 14:19 Ondansetron HCl (Zofran) 4 mg EVERY 4 HOURS PRN IVP Nausea & Vomiting 03/11/20 00:45 04/10/20 00:44 Phosphorus (Phospha 250 Neutral) 500 mg THREE TIMES A DAY ORAL 03/14/20 14:30 03/16/20 08:00 03/15/20 14:13 Allergies: Coded Allergies: SULFAMETHOXAZOLE (Verified Allergy, Unknown, hives, 03/11/20) TRIMETHOPRIM (Verified Allergy, Unknown, hives, 03/11/20) ROS Limited/Unobtainable: No Constitutional: Reports: no symptoms HEENT: Reports: no symptoms Cardiovascular: Reports: no symptoms Respiratory: Reports: no symptoms Gastrointestinal/Abdominal: Reports: no symptoms Genitourinary: Reports: no symptoms Neurologic/Psychiatric: Reports: no symptoms Subjective 44 YO F admitted with shortness of breath. Now COVID 19 pos and line sepsis. Cover for Int Shailesh-DR Fernandez Objective Last Vital Signs Date Time Temp Pulse Resp B/P (MAP) Pulse Ox O2 Delivery O2 Flow Rate FiO2 03/15/20 12:00 98.4 80 18 93/60 (71) 98 03/15/20 09:00 Room Air 03/11/20 17:12 3 Laboratory Tests Test 03/15/20 04:30 White Blood Count 7.6 K/UL (4.8-10.8) Red Blood Count 2.66 M/UL (4.20-5.40) L Hemoglobin 8.0 G/DL (12.0-16.0) L Hematocrit 26.3 % (37.0-47.0) L Mean Corpuscular Volume 99 FL (80-99) Mean Corpuscular Hemoglobin 30.1 PG (27.0-31.0) Mean Corpuscular Hemoglobin Concent 30.5 G/DL (32.0-36.0) L Red Cell Distribution Width 18.7 % (11.6-14.8) H Platelet Count 241 K/UL (150-450) Mean Platelet Volume 7.8 FL (6.5-10.1) Neutrophils (%) (Auto) 57.4 % (45.0-75.0) Lymphocytes (%) (Auto) 35.3 % (20.0-45.0) Monocytes (%) (Auto) 6.1 % (1.0-10.0) Eosinophils (%) (Auto) 0.2 % (0.0-3.0) Basophils (%) (Auto) 1.0 % (0.0-2.0) Sodium Level 138 MMOL/L (136-145) Potassium Level 3.9 MMOL/L (3.5-5.1) Chloride Level 107 MMOL/L (98-107) Carbon Dioxide Level 24 MMOL/L (21-32) Anion Gap 8 mmol/L (5-15) Blood Urea Nitrogen 12 mg/dL (7-18) Creatinine 1.2 MG/DL (0.55-1.30) Estimat Glomerular Filtration Rate 59.4 mL/min (>60) Glucose Level 82 MG/DL (74-106) Calcium Level 7.1 MG/DL (8.5-10.1) L Intake and Output 03/14/20 03/15/20 19:00 07:00 Intake Total 960 ml Balance 960 ml Intake Oral 960 ml # Voids 5 Objective Objective General: No acute distress, awake and alert HEENT: NCAT, sclera anicteric, PERRL, EOMI. Neck: Supple, no significant jugular venous distention, Lungs: Fair inspiratory effort, , clear to auscultation bilaterally, no Wheeze or Rales. CHEST WALL: surgical incision intact. Heart: Regular rate and rhythm, normal S1/S2, no murmurs/gallops Abdomen: soft, nontender, nondistended. Normoactive bowel sounds. / Rectal: Refused and deferred. Extremities: No Cyanosis , clubbing or edema. right femoral triple-lumen catheter. Neuro: A&O x 3, Able to move all extremities Skin: warm, no rashes or lesions Psych: Normal mood and affect Assessment/Plan Assessment/Plan Assessment/Plan Assessment/Plan ASSESSMENT: This is a 44-year-old female: 1. Infected Port-A-Cath. 2. COVID-19 Pneumonia. 3. Severe sickle cell anemia. 4. Sickle cell crisis. 5. Severe Anemia. TREATMENT: 1. Line sepsis. An Infectious Diseases consultation has been obtained with Dr. Herron . Abx: Meropenem monitor cultures. 2. Severe sickle cell anemia/sickle cell crisis. A Hematology/Oncology consultation has been obtained with Dr. Horne. The patient is currently receiving intravenous Dilaudid for pain control. 3. S/P kaden a cath removal 03/11/20 DVT prophylaxis heparin subcu Monitor laboratory. Roberth Swain MD Mar 15, 2020 15:55
[2020-03-15 16:00] VITALS: BP 99/67
--- NOTE | 2020-03-15 19:15 | NUR ---
NURSE NOTES: received pt and report from TRICE Aguayo. pt alert and oriented x 4 with no acute s/s of distress and no co pain at the moment. PICC line noted clean dry and intact. Plan of care discussed. denies sob and difficulty breathing at this time.
--- NOTE | 2020-03-15 19:51 | NUR ---
NURSE HAND-OFF: Important Events on Shift:[] Patient Status: [] Diet: [regular] Pending Orders: [] Pending Results/Labs:[] Pending MD notification:[] Latest Vital Signs: Temperature 98.6 , Pulse 93 , B/P 99 /67 , Respiratory Rate 18 , O2 SAT 95 , Nasal Cannula, O2 Flow Rate 3 . Vital Sign Comment: [] Latest Whitt Fall Score: 35 Fall Risk: Medium Risk Safety Measures: Call light Within Reach, Bed Alarm Zone 1, Side Rails Side Rails x2, Bed position Low and Locked. Fall Precautions: Yellow Socks Report given to [RN Freddie].
[2020-03-15 20:00] VITALS: BP 94/60
[2020-03-15] MEDS: Dyna-Hex 2% Top Sol 2oz TOPIC SCH ×2 (20:34→20:35)
[2020-03-16] VITALS: BP 90/63
--- NOTE | 2020-03-16 00:23 | NUR ---
NURSE NOTES: pt vital signs are stable at this time. blood pressure is 90/63 but pts systolic trends in the 90s. she is asymptomatic, denies feeling dizzy or light headed, O2 saturation at 100, denies shortness of breath and difficulty breathing. no co pain at the moment, no acute s/s of distress.
[2020-03-16] MEDS: HYDROMORPHONE IVPB PRN ×4 (02:38→20:07)
[2020-03-16] MEDS: DiphenhydrAMINE 50mg/ml Inj IVP PRN ×4 (02:38→20:05)
[2020-03-16] MEDS: NS IVPB PRN ×4 (02:38→20:07)
--- NOTE | 2020-03-16 02:55 | NUR ---
NURSE NOTES: unable to remove lock box [place] due to pyxis malfunction on 4E. pt complaining of pain /, 4mg Dilaudid dose hung piggyback outside of lock box, i stayed in pts room for entire 15min of run time. pt fell asleep during that time, no acute distress noted, pain controlled at this time. denies any sob and difficulty breathing.
[2020-03-16 04:00] VITALS: BP 97/61
--- NOTE | 2020-03-16 04:15 | NUR ---
NURSE NOTES: vital signs are stable, blood pressure is up from last reading of 90 systolic to 97. no co sob or difficulty breathing, no acute distress observed. pain controlled at this time
[2020-03-16] MEDS: Meropenem 2 GM in NS 55 ML IVPB SCH ×3 (05:09→21:56)
[2020-03-16] MEDS: Heparin 5000 units/ml inj SUBQ SCH ×3 (05:09→22:02)
[2020-03-16 05:12] LABS: HEMATOCRIT 26.4 % (37.0-47.0); HEMOGLOBIN 8.2 G/DL (12.0-16.0); MEAN CORPUSCULAR VOLUME 99 FL (80-99); PLATELET COUNT 225 K/UL (150-450); RED BLOOD COUNT 2.66 M/UL (4.20-5.40); RED CELL DISTRIBUTION WIDTH 18.6 % (11.6-14.8); WHITE BLOOD COUNT 8.4 K/UL (4.8-10.8)
[2020-03-16 05:37] LABS: ALANINE AMINOTRANSFERASE 26 U/L (12-78); ALBUMIN 2.3 G/DL (3.4-5.0); ALBUMIN/GLOBULIN RATIO 0.5 (1.0-2.7); ALKALINE PHOSPHATASE 63 U/L (46-116); ANION GAP 6 mmol/L (5-15); ASPARTATE AMINO TRANSFERASE 50 U/L (15-37); BILIRUBIN,TOTAL 1.6 MG/DL (0.2-1.0); BLOOD UREA NITROGEN 11 mg/dL (7-18); CALCIUM 6.8 MG/DL (8.5-10.1); CARBON DIOXIDE 25 MMOL/L (21-32); CHLORIDE 108 MMOL/L (98-107); CREATININE 1.1 MG/DL (0.55-1.30); POTASSIUM 3.7 MMOL/L (3.5-5.1); SODIUM 138 MMOL/L (136-145)
[2020-03-16 05:42] LABS: BILIRUBIN,DIRECT 0.4 MG/DL (0.0-0.3)
--- NOTE | 2020-03-16 06:12 | NUR ---
NURSE HAND-OFF: Important Events on Shift: pain management, respiratory assessment, PICC line placement today 03/16/20 scheduled for 8am Patient Status: stable Diet: regular Pending Orders: NA Pending Results/Labs: NA Pending MD notification: NA Latest Vital Signs: Temperature 98.1 , Pulse 73 , B/P 97 /61 , Respiratory Rate 18 , O2 SAT 100 , Nasal Cannula, O2 Flow Rate 3 . Vital Sign Comment: stable through the shift Latest Whitt Fall Score: 35 Fall Risk: Medium Risk Safety Measures: Call light Within Reach, Bed Alarm Zone 1, Side Rails Side Rails x2, Bed position Low and Locked. Fall Precautions: Yellow Socks Report will be given to TRICE Hurst.
--- NOTE | 2020-03-16 06:37 | Hematology/Onc Progress Note ---
Assessment/Plan Assessment/Plan Assessment/Plan # Sickle cell disease sickle cell anemia --> hgb 5-->7.7->8.2 --> s/p transfusion --> will obtain anemia panel-->reviewed --> for sickle cell, r/o hemolysis, confirm sickle cell and obtain ldh, hapto, retic-->reviewed --> transfuse as needed --> outpatient heme --> dilaudid for pain control ==> continue hydrea # Leukocytosis due to COVID-19 pneumonia; COVID-19 positive 03/10/20 at [facility] -> Patient is currently afebrile and normoxemic on room air --> Patient was briefly given low flow oxygen via nasal cannula overnight --> Monitor for hypoxia and provide supplemental oxygen as needed --> per pulm --> Abx meropenem --> wbc 16-->7.5 # Port infection --> ID following --> Benyamini has removed # Dehydration --> goal euvolemia # Dvt ppx heparin sq Appreciate consultation and nicholas rn Subjective HEENT: Denies: no symptoms, eye pain, blurred vision, tearing, double vision, ear pain, ear discharge, nose pain, nose congestion, throat pain, throat swelling, mouth pain, mouth swelling, other Respiratory: Denies: no symptoms, cough, shortness of breath, SOB with excertion, SOB at rest, sputum, wheezing, other Gastrointestinal/Abdominal: Denies: no symptoms, abdomen distended, abdominal pain, black stools, tarry stools, blood in stool, constipated, diarrhea, difficulty swallowing, nausea, poor appetite, poor fluid intake, rectal bleeding, vomiting, other Genitourinary: Denies: no symptoms, burning, discharge, frequency, flank pain, hematuria, incontinence, pain, urgency, other Neurologic/Psychiatric: Denies: no symptoms, anxiety, depressed, emotional problems, headache, numbness, paresthesia, pre-existing deficit, seizure, tingling, tremors, weakness, other Endocrine: Denies: no symptoms, excessive sweating, flushing, intolerance to cold, intolerance to heat, increased hunger, increased thirst, increased urine, unexplained weight gain, unexplained weight loss, other Hematologic/Lymphatic: Denies: no symptoms, anemia, easy bleeding, easy bruising, adenopathy, other Allergies: Coded Allergies: SULFAMETHOXAZOLE (Verified Allergy, Unknown, hives, 03/11/20) TRIMETHOPRIM (Verified Allergy, Unknown, hives, 03/11/20) Subjective 2 dw Rn in the am, have started on hydroxyurea, and folic acid 03/15 labs reviewed, meds noted, hgb stable, sickle screen+ 03/16 is comfortable, bp is low, dilaudid was given, meds noted, no night sweats Objective Objective Current Medications Medications (Trade) Dose Ordered Sig/Baljeet Route PRN Reason Start Time Stop Time Status Last Admin Dose Admin Acetaminophen (Tylenol) 650 mg Q6H PRN ORAL Temp >100.5/ mild pain (1-3) 03/11/20 00:45 04/10/20 00:44 03/13/20 16:10 Albuterol Sulfate (Proventil MDI) 2 puff Q4H PRN INH Shortness of Breath 03/11/20 00:45 06/09/20 00:44 03/13/20 09:50 Chlorhexidine Gluconate (Tatiana-Hex 2%) 1 applic BEDTIME TOPIC 03/11/20 21:00 06/09/20 20:59 03/15/20 20:35 Chlorhexidine Gluconate (Tatiana-Hex 2%) 1 applic DAILY@2000 TOPIC 03/15/20 20:00 06/13/20 19:59 03/15/20 20:34 Diphenhydramine HCl (Benadryl) 50 mg Q6H PRN IVP Itching 03/11/20 00:45 04/10/20 00:44 03/16/20 02:38 Folic Acid (Folate) 1 mg DAILY ORAL 03/12/20 09:00 04/11/20 08:59 03/15/20 08:19 Heparin Sodium (Porcine) (Heparin 5000 units/ml) 5,000 units EVERY 8 HOURS SUBQ 03/11/20 06:00 04/25/20 05:59 03/15/20 21:25 Heparin Sodium/ Sodium Chloride (Heparin 1000 units/500ml Premix) 1,000 unit ONCE PRN IV PICC LINE PLACEMENT 03/15/20 13:30 03/17/20 13:29 Hydromorphone HCl 2 mg/Sodium Chloride 56 ml @ 224 mls/hr Q4H PRN IVPB Moderate Pain (Pain Scale 4-6) 03/11/20 07:30 03/18/20 07:29 03/12/20 05:31 Hydromorphone HCl 4 mg/Sodium Chloride 57 ml @ 228 mls/hr Q4H PRN IVPB Severe Pain (Pain Scale 7-10) 03/11/20 07:30 03/18/20 07:29 03/16/20 02:38 Hydroxyurea (Hydrea) 500 mg TWICE A DAY ORAL 03/13/20 09:00 03/18/20 08:59 03/15/20 18:08 Lidocaine HCl (Xylocaine 1% 30ml) 30 ml ONCE PRN INJ PICC LINE PLACEMENT 03/15/20 13:30 03/17/20 13:29 Meropenem 2 gm/ Sodium Chloride 55 ml @ 110 mls/hr Q8HR IVPB 03/11/20 14:00 03/24/20 13:59 03/16/20 05:09 Ondansetron HCl (Zofran) 4 mg EVERY 4 HOURS PRN IVP Nausea & Vomiting 03/11/20 00:45 04/10/20 00:44 Phosphorus (Phospha 250 Neutral) 500 mg THREE TIMES A DAY ORAL 03/14/20 14:30 03/16/20 08:00 03/15/20 18:08 Last 24 Hour Vital Signs Date Time Temp Pulse Resp B/P (MAP) Pulse Ox O2 Delivery O2 Flow Rate FiO2 03/16/20 04:00 98.1 73 18 97/61 (73) 100 03/16/20 00:00 97.5 72 17 90/63 (72) 100 03/15/20 21:00 Room Air 03/15/20 20:00 98.8 85 17 94/60 (71) 95 03/15/20 16:00 98.6 93 18 99/67 (78) 95 03/15/20 14:49 98.6 03/15/20 12:00 98.4 80 18 93/60 (71) 98 03/15/20 09:00 Room Air 03/15/20 08:48 98.9 03/15/20 08:00 96.3 85 18 98/66 (77) 100 03/15/20 04:00 98.9 78 18 98/61 (73) 95 03/15/20 00:00 99.4 80 18 102/63 (76) 96 03/14/20 21:00 Room Air 03/14/20 20:00 99.1 85 18 95/56 (69) 95 03/14/20 18:37 98.2 88 18 108/80 (89) 94 03/14/20 16:00 98.2 88 18 91/59 (70) 94 03/14/20 12:00 100.4 95 18 106/65 (79) 96 03/14/20 09:00 Room Air Intake and Output 03/15/20 03/16/20 19:00 07:00 Intake Total 769 ml Balance 769 ml Intake Oral 600 ml IV Total 169 ml # Voids 4 2 Labs Test 03/14/20 06:00 03/15/20 04:30 03/16/20 04:00 White Blood Count 7.5 K/UL (4.8-10.8) 7.6 K/UL (4.8-10.8) 8.4 K/UL (4.8-10.8) Red Blood Count 2.71 M/UL (4.20-5.40) 2.66 M/UL (4.20-5.40) 2.66 M/UL (4.20-5.40) Hemoglobin 8.2 G/DL (12.0-16.0) 8.0 G/DL (12.0-16.0) 8.2 G/DL (12.0-16.0) Hematocrit 26.4 % (37.0-47.0) 26.3 % (37.0-47.0) 26.4 % (37.0-47.0) Mean Corpuscular Volume 97 FL (80-99) 99 FL (80-99) 99 FL (80-99) Mean Corpuscular Hemoglobin 30.2 PG (27.0-31.0) 30.1 PG (27.0-31.0) 30.7 PG (27.0-31.0) Mean Corpuscular Hemoglobin Concent 31.0 G/DL (32.0-36.0) 30.5 G/DL (32.0-36.0) 30.9 G/DL (32.0-36.0) Red Cell Distribution Width 19.6 % (11.6-14.8) 18.7 % (11.6-14.8) 18.6 % (11.6-14.8) Platelet Count 291 K/UL (150-450) 241 K/UL (150-450) 225 K/UL (150-450) Mean Platelet Volume 7.9 FL (6.5-10.1) 7.8 FL (6.5-10.1) 8.4 FL (6.5-10.1) Neutrophils (%) (Auto) 71.3 % (45.0-75.0) 57.4 % (45.0-75.0) % (45.0-75.0) Lymphocytes (%) (Auto) 15.1 % (20.0-45.0) 35.3 % (20.0-45.0) % (20.0-45.0) Monocytes (%) (Auto) 10.3 % (1.0-10.0) 6.1 % (1.0-10.0) % (1.0-10.0) Eosinophils (%) (Auto) 0.2 % (0.0-3.0) 0.2 % (0.0-3.0) % (0.0-3.0) Basophils (%) (Auto) 3.1 % (0.0-2.0) 1.0 % (0.0-2.0) % (0.0-2.0) Sodium Level 139 MMOL/L (136-145) 138 MMOL/L (136-145) 138 MMOL/L (136-145) Potassium Level 3.8 MMOL/L (3.5-5.1) 3.9 MMOL/L (3.5-5.1) 3.7 MMOL/L (3.5-5.1) Chloride Level 108 MMOL/L (98-107) 107 MMOL/L (98-107) 108 MMOL/L (98-107) Carbon Dioxide Level 25 MMOL/L (21-32) 24 MMOL/L (21-32) 25 MMOL/L (21-32) Anion Gap 6 mmol/L (5-15) 8 mmol/L (5-15) 6 mmol/L (5-15) Blood Urea Nitrogen 10 mg/dL (7-18) 12 mg/dL (7-18) 11 mg/dL (7-18) Creatinine 1.1 MG/DL (0.55-1.30) 1.2 MG/DL (0.55-1.30) 1.1 MG/DL (0.55-1.30) Estimat Glomerular Filtration Rate > 60 mL/min (>60) 59.4 mL/min (>60) > 60 mL/min (>60) Glucose Level 89 MG/DL (74-106) 82 MG/DL (74-106) 83 MG/DL (74-106) Calcium Level 7.3 MG/DL (8.5-10.1) 7.1 MG/DL (8.5-10.1) 6.8 MG/DL (8.5-10.1) Phosphorus Level 2.1 MG/DL (2.5-4.9) Magnesium Level 2.1 MG/DL (1.8-2.4) Total Bilirubin 1.5 MG/DL (0.2-1.0) 1.6 MG/DL (0.2-1.0) Direct Bilirubin 0.3 MG/DL (0.0-0.3) 0.4 MG/DL (0.0-0.3) Aspartate Amino Transf (AST/SGOT) 37 U/L (15-37) 50 U/L (15-37) Alanine Aminotransferase (ALT/SGPT) 18 U/L (12-78) 26 U/L (12-78) Alkaline Phosphatase 72 U/L (46-116) 63 U/L (46-116) Total Protein 7.3 G/DL (6.4-8.2) 7.1 G/DL (6.4-8.2) Albumin 2.5 G/DL (3.4-5.0) 2.3 G/DL (3.4-5.0) Globulin 4.8 g/dL 4.8 g/dL Albumin/Globulin Ratio 0.5 (1.0-2.7) 0.5 (1.0-2.7) Height (Feet): 5 Height (Inches): 1.00 Weight (Pounds): 130 Objective PHYSICAL EXAMINATION: VITAL SIGNS: reviewed General: Patient sitting up in bed getting IV access by a nurse, not in respiratory distress at the moment on room air HEENT: Head exam reveals that the head is normocephalic, atraumatic without deformity or unusual swelling. Right hazy eye CHEST AND LUNGS: Reveals clear, normal, symmetrical breath sounds with no adventitious sounds. CARDIOVASCULAR: Reveals normal S1, S2 without murmurs, rubs, or clicks. ABDOMEN: Soft with no tenderness or organomegaly. RECTAL: Deferred. MUSCULOSKELETAL: There is no tenderness to palpation. Range of motion is normal. NEUROLOGICAL: Alert and oriented x3 , nonfocal Redd Horne MD Mar 16, 2020 06:37
--- NOTE | 2020-03-16 07:40 | NUR ---
NURSE NOTES: Report received from Freddie CARNES. Patient seen on rounds, asleep but easily rousable, on O2 at 2lpm via NC with no signs of distress. Comfortable. Nurse reports pt last given pain meds at 0238 with relief of symptoms. Right femoral PICC line patent and intact. Pt scheduled for PICC line reinsertion today, consents in chart. Bed low and locked, siderails up x2, call light placed within reach and instructed to call nurse for assistance. Will continue to monitor.
[2020-03-16 08:00] VITALS: BP 106/62
[2020-03-16] MEDS: Hydroxyurea 500mg cap ORAL SCH ×3 (08:22→17:27)
--- NOTE | 2020-03-16 09:02 | Infectious Diseases Prog Note ---
Assessment/Plan 44yo F with: Acinetobacter baumanii bacteremia, CLABSI Afebrile Leukocytosis to 15 Port infection, dx'd by her Heme/onc doctor at [facility], Dr. Sampson Lazaro (I spoke with him on the phone to obtain the following results) 01/07 BCx Acinetobacter pitti S-bactrim, levoflox, meropenem, gent, amikacin Was on levoflox then bactrim for this 02/05 BCx Acinetobacter baumanni complex 03/02 BCx Acinetobacter baumanni, S-amikacin, ant, minocycline Was on IV abx for this, then on minocycline 03/11 BCx NTD 03/11 Port removal, R fem central line placed for access TTE neg for vegetations 03/12 BCx NTD COVID pneumonia Satting well on RA Afebrile 03/10 COVID PCR positive at [facility] neg CXR: Patchy bilateral infiltrates. Findings related to multifocal pneumonia. Clinical correlation and follow-up recommended. Sickle cell disease Anemia to 5s HIV screen neg Plan: Cont meropenem 2g IV q8hrs #07/20 to target Acinetobacter in prior BCx from [facility] Needs to complete 2 wk course of IV meropenem on discharge given prior positive BCx. End date is 03/25. Given neg BCx, ok for PICC line placement today. Remove fem CVC. No current tx for COVID indicated given satting well on RA Needs COVID isolation for 10 days from diagnosis 03/10 - so through 03/20 Monitor CBC/CMP Monitor temp curve, hemodynamics Monitor resp status COVID isolation D/w RN Thank you for this consult. [facility] will continue to follow. Subjective Allergies: Coded Allergies: SULFAMETHOXAZOLE (Verified Allergy, Unknown, hives, 03/11/20) TRIMETHOPRIM (Verified Allergy, Unknown, hives, 03/11/20) AF NAD Breathing stable on RA WBC 8.4 Objective Last 24 Hour Vital Signs Date Time Temp Pulse Resp B/P (MAP) Pulse Ox O2 Delivery O2 Flow Rate FiO2 03/16/20 04:00 98.1 73 18 97/61 (73) 100 03/16/20 00:00 97.5 72 17 90/63 (72) 100 03/15/20 21:00 Room Air 03/15/20 20:00 98.8 85 17 94/60 (71) 95 03/15/20 16:00 98.6 93 18 99/67 (78) 95 03/15/20 14:49 98.6 03/15/20 12:00 98.4 80 18 93/60 (71) 98 Height (Feet): 5 Height (Inches): 1.00 Weight (Pounds): 130 Gen: NAD HEENT: NCAT, R eye white Pulm: BL chest rise on RA Abd: Non-distended Ext: No c/c/e Skin: No visible rashes Neuro: Awake, alert, interactive Lines: R fem CVC dressing c/d/i Laboratory Tests Test 03/16/20 04:00 White Blood Count 8.4 K/UL (4.8-10.8) Red Blood Count 2.66 M/UL (4.20-5.40) L Hemoglobin 8.2 G/DL (12.0-16.0) L Hematocrit 26.4 % (37.0-47.0) L Mean Corpuscular Volume 99 FL (80-99) Mean Corpuscular Hemoglobin 30.7 PG (27.0-31.0) Mean Corpuscular Hemoglobin Concent 30.9 G/DL (32.0-36.0) L Red Cell Distribution Width 18.6 % (11.6-14.8) H Platelet Count 225 K/UL (150-450) Mean Platelet Volume 8.4 FL (6.5-10.1) Neutrophils (%) (Auto) % (45.0-75.0) Lymphocytes (%) (Auto) % (20.0-45.0) Monocytes (%) (Auto) % (1.0-10.0) Eosinophils (%) (Auto) % (0.0-3.0) Basophils (%) (Auto) % (0.0-2.0) Differential Total Cells Counted 100 Neutrophils % (Manual) 42 % (45-75) L Lymphocytes % (Manual) 51 % (20-45) H Monocytes % (Manual) 7 % (1-10) Eosinophils % (Manual) 0 % (0-3) Basophils % (Manual) 0 % (0-2) Band Neutrophils 0 % (0-8) Platelet Estimate Adequate Platelet Morphology Normal Hypochromasia 1+ Anisocytosis 1+ Macrocytosis 1+ Sickle Cells Rare H Target Cells Occasional Tear Drop Cells Occasional Sodium Level 138 MMOL/L (136-145) Potassium Level 3.7 MMOL/L (3.5-5.1) Chloride Level 108 MMOL/L (98-107) H Carbon Dioxide Level 25 MMOL/L (21-32) Anion Gap 6 mmol/L (5-15) Blood Urea Nitrogen 11 mg/dL (7-18) Creatinine 1.1 MG/DL (0.55-1.30) Estimat Glomerular Filtration Rate > 60 mL/min (>60) Glucose Level 83 MG/DL (74-106) Calcium Level 6.8 MG/DL (8.5-10.1) L Total Bilirubin 1.6 MG/DL (0.2-1.0) H Direct Bilirubin 0.4 MG/DL (0.0-0.3) H Aspartate Amino Transf (AST/SGOT) 50 U/L (15-37) H Alanine Aminotransferase (ALT/SGPT) 26 U/L (12-78) Alkaline Phosphatase 63 U/L (46-116) Total Protein 7.1 G/DL (6.4-8.2) Albumin 2.3 G/DL (3.4-5.0) L Globulin 4.8 g/dL Albumin/Globulin Ratio 0.5 (1.0-2.7) L Current Medications Medications (Trade) Dose Ordered Sig/Baljeet Route PRN Reason Start Time Stop Time Status Last Admin Dose Admin Acetaminophen (Tylenol) 650 mg Q6H PRN ORAL Temp >100.5/ mild pain (1-3) 03/11/20 00:45 04/10/20 00:44 03/13/20 16:10 Albuterol Sulfate (Proventil MDI) 2 puff Q4H PRN INH Shortness of Breath 03/11/20 00:45 06/09/20 00:44 03/13/20 09:50 Chlorhexidine Gluconate (Tatiana-Hex 2%) 1 applic BEDTIME TOPIC 03/11/20 21:00 06/09/20 20:59 03/15/20 20:35 Chlorhexidine Gluconate (Tatiana-Hex 2%) 1 applic DAILY@2000 TOPIC 03/15/20 20:00 06/13/20 19:59 03/15/20 20:34 Diphenhydramine HCl (Benadryl) 50 mg Q6H PRN IVP Itching 03/11/20 00:45 04/10/20 00:44 03/16/20 08:24 Folic Acid (Folate) 1 mg DAILY ORAL 03/12/20 09:00 04/11/20 08:59 03/16/20 08:23 Heparin Sodium (Porcine) (Heparin 5000 units/ml) 5,000 units EVERY 8 HOURS SUBQ 03/11/20 06:00 04/25/20 05:59 03/15/20 21:25 Heparin Sodium/ Sodium Chloride (Heparin 1000 units/500ml Premix) 1,000 unit ONCE PRN IV PICC LINE PLACEMENT 03/15/20 13:30 03/17/20 13:29 Hydromorphone HCl 2 mg/Sodium Chloride 56 ml @ 224 mls/hr Q4H PRN IVPB Moderate Pain (Pain Scale 4-6) 03/11/20 07:30 03/18/20 07:29 03/12/20 05:31 Hydromorphone HCl 4 mg/Sodium Chloride 57 ml @ 228 mls/hr Q4H PRN IVPB Severe Pain (Pain Scale 7-10) 03/11/20 07:30 03/18/20 07:29 03/16/20 08:24 Hydroxyurea (Hydrea) 500 mg TWICE A DAY ORAL 03/13/20 09:00 03/18/20 08:59 03/16/20 08:22 Lidocaine HCl (Xylocaine 1% 30ml) 30 ml ONCE PRN INJ PICC LINE PLACEMENT 03/15/20 13:30 03/17/20 13:29 Meropenem 2 gm/ Sodium Chloride 55 ml @ 110 mls/hr Q8HR IVPB 03/11/20 14:00 03/24/20 13:59 03/16/20 05:09 Ondansetron HCl (Zofran) 4 mg EVERY 4 HOURS PRN IVP Nausea & Vomiting 03/11/20 00:45 04/10/20 00:44 Rupali Herron M.D.b 8, 2021 09:02
--- NOTE | 2020-03-16 11:16 | Pulmonology Progress Note ---
Subjective ROS Limited/Unobtainable: No Interval Events: None new Constitutional: Reports: no symptoms HEENT: Repors: no symptoms Respiratory: Reports: no symptoms Cardiovascular: Reports: no symptoms Gastrointestinal/Abdominal: Reports: no symptoms Allergies: Coded Allergies: SULFAMETHOXAZOLE (Verified Allergy, Unknown, hives, 03/11/20) TRIMETHOPRIM (Verified Allergy, Unknown, hives, 03/11/20) Objective Last 24 Hour Vital Signs Date Time Temp Pulse Resp B/P (MAP) Pulse Ox O2 Delivery O2 Flow Rate FiO2 03/16/20 04:00 98.1 73 18 97/61 (73) 100 03/16/20 00:00 97.5 72 17 90/63 (72) 100 03/15/20 21:00 Room Air 03/15/20 20:00 98.8 85 17 94/60 (71) 95 03/15/20 16:00 98.6 93 18 99/67 (78) 95 03/15/20 14:49 98.6 03/15/20 12:00 98.4 80 18 93/60 (71) 98 Intake and Output 03/15/20 03/16/20 19:00 07:00 Intake Total 769 ml Balance 769 ml Intake Oral 600 ml IV Total 169 ml # Voids 4 2 General Appearance: no acute distress Respiratory: lungs clear Cardiovascular: normal rate Abdomen: soft, non tender Laboratory Tests 03/16/20 04:00: White Blood Count 8.4, Red Blood Count 2.66L, Hemoglobin 8.2L, Hematocrit 26.4L, Mean Corpuscular Volume 99, Mean Corpuscular Hemoglobin 30.7, Mean Corpuscular Hemoglobin Concent 30.9L, Red Cell Distribution Width 18.6H, Platelet Count 225, Mean Platelet Volume 8.4, Neutrophils (%) (Auto) , Lymphocytes (%) (Auto) , Monocytes (%) (Auto) , Eosinophils (%) (Auto) , Basophils (%) (Auto) , Differential Total Cells Counted 100, Neutrophils % (Manual) 42L, Lymphocytes % (Manual) 51H, Monocytes % (Manual) 7, Eosinophils % (Manual) 0, Basophils % (Manual) 0, Band Neutrophils 0, Platelet Estimate Adequate, Platelet Morphology Normal, Hypochromasia 1+, Anisocytosis 1+, Macrocytosis 1+, Sickle Cells RareH, Target Cells Occasional, Tear Drop Cells Occasional, Sodium Level 138, Potassium Level 3.7, Chloride Level 108H, Carbon Dioxide Level 25, Anion Gap 6, Blood Urea Nitrogen 11, Creatinine 1.1, Estimat Glomerular Filtration Rate > 60, Glucose Level 83, Calcium Level 6.8L, Total Bilirubin 1.6H, Direct Bilirubin 0.4H, Aspartate Amino Transf (AST/SGOT) 50H, Alanine Aminotransferase (ALT/SGPT) 26, Alkaline Phosphatase 63, Total Protein 7.1, Albumin 2.3L, Globulin 4.8, Albumin/Globulin Ratio 0.5L Current Medications Medications (Trade) Dose Ordered Sig/Baljeet Route PRN Reason Start Time Stop Time Status Last Admin Dose Admin Acetaminophen (Tylenol) 650 mg Q6H PRN ORAL Temp >100.5/ mild pain (1-3) 03/11/20 00:45 04/10/20 00:44 03/13/20 16:10 Albuterol Sulfate (Proventil MDI) 2 puff Q4H PRN INH Shortness of Breath 03/11/20 00:45 06/09/20 00:44 03/13/20 09:50 Chlorhexidine Gluconate (Tatiana-Hex 2%) 1 applic BEDTIME TOPIC 03/11/20 21:00 06/09/20 20:59 03/15/20 20:35 Chlorhexidine Gluconate (Tatiana-Hex 2%) 1 applic DAILY@2000 TOPIC 03/15/20 20:00 06/13/20 19:59 03/15/20 20:34 Diphenhydramine HCl (Benadryl) 50 mg Q6H PRN IVP Itching 03/11/20 00:45 04/10/20 00:44 03/16/20 08:24 Folic Acid (Folate) 1 mg DAILY ORAL 03/12/20 09:00 04/11/20 08:59 03/16/20 08:23 Heparin Sodium (Porcine) (Heparin 5000 units/ml) 5,000 units EVERY 8 HOURS SUBQ 03/11/20 06:00 04/25/20 05:59 03/15/20 21:25 Heparin Sodium/ Sodium Chloride (Heparin 1000 units/500ml Premix) 1,000 unit ONCE PRN IV PICC LINE PLACEMENT 03/15/20 13:30 03/17/20 13:29 Hydromorphone HCl 2 mg/Sodium Chloride 56 ml @ 224 mls/hr Q4H PRN IVPB Moderate Pain (Pain Scale 4-6) 03/11/20 07:30 03/18/20 07:29 03/12/20 05:31 Hydromorphone HCl 4 mg/Sodium Chloride 57 ml @ 228 mls/hr Q4H PRN IVPB Severe Pain (Pain Scale 7-10) 03/11/20 07:30 03/18/20 07:29 03/16/20 08:24 Hydroxyurea (Hydrea) 500 mg TWICE A DAY ORAL 03/13/20 09:00 03/18/20 08:59 03/16/20 08:22 Lidocaine HCl (Xylocaine 1% 30ml) 30 ml ONCE PRN INJ PICC LINE PLACEMENT 03/15/20 13:30 03/17/20 13:29 Meropenem 2 gm/ Sodium Chloride 55 ml @ 110 mls/hr Q8HR IVPB 03/11/20 14:00 03/24/20 13:59 03/16/20 05:09 Ondansetron HCl (Zofran) 4 mg EVERY 4 HOURS PRN IVP Nausea & Vomiting 03/11/20 00:45 04/10/20 00:44 Assessment/Plan Assessment/Plan 1. COVID-19 pneumonia; COVID-19 positive 03/10/20 at [place] -Patient is currently afebrile and normoxemic on room air -Patient was briefly given low flow oxygen via nasal cannula -Monitor for hypoxia and provide supplemental oxygen as needed -At this time, no indication for specific therapy for COVID-19 - Continue isolation through 03/20 2. Sickle cell disease sickle cell anemia -Per primary MD and ID specialist - s/p transfusion 3. Port infection -ID following The care for this patient was discussed with my supervising physician Time spent for this case was approximately 31 minutes Lior Hong Mar 16, 2020 11:16
[2020-03-16 12:00] VITALS: BP 98/60
--- NOTE | 2020-03-16 13:12 | NUR ---
ANIMAL STUNNER NOTES SPOKE WITH PT MADE AWARE OF DCP. VERIFIED DEMOGRAPHICS. INQUIRY FAXED TO [facility] FOR IV ATB AND A&P FOR HH. WILL FOLLOW UP WITH ACCEPTANCE. [address]ESS [address] [facility] [id number] [place] [address] Addendum: 03/16/20 at 1824 by ANDREW LEBLANC RN CM ivan wheatley to service the patient. provided pt's contact information for delivery.NURSING TO BE PROVIDED BY [facility]. START OF CARE WILL BE TOMORROW. [facility] [phone]
--- NOTE | 2020-03-16 14:52 | NUR ---
RADIOLOGY NOTE: LEFT UPPER MIDLINE PLACED.
--- NOTE | 2020-03-16 15:24 | Pre-Procedure Note/Attestation ---
Pre-Procedure Note/Attestation Complete Prior to Procedure Planned Procedure: not applicable Procedure Narrative: PICC Indications for Procedure Pre-Operative Diagnosis: needs IV access Attestation I attest that I discussed the nature of the procedure; its benefits; risks and complications; and alternatives (and the risks and benefits of such alternatives), prior to the procedure, with the patient (or the patient's legal account development representative). I attest that, if there was a reasonable possibility of needing a blood archibald sfusion, the patient (or the patient's legal account development representative) was given the [facility] standardized written summary, pursuant to the [place] Blood Safety Act ([place] Health and Safety Code # 1645, as amended). I attest that I re-evaluated the patient just prior to the surgery and that there has been no change in the patient's H&P, except as documented below: Yunior Zimmerman MD Mar 16, 2020 15:24
--- NOTE | 2020-03-16 15:26 | Brief Operative Note ---
Immediate Post Operative Note Operative Note Pre-op Diagnosis: needs IV access Procedure: Midline (attempted PICC) Post-op Diagnosis: same as pre-op Surgeon: Isaura Capps Specimen: none Complications: none Fluids: none Implant(s) used?: No Yunior Capps MD Mar 16, 2020 15:26
--- NOTE | 2020-03-16 15:39 | Diagnostic Imaging Report ---
Indications: Needs long-term IV access Technique: Procedure performed at bedside. Procedural timeout performed. Ultrasound confirms patent compressible left basilic vein. Total sterile technique, including sterile probe cover and sterile gel, sterile gloves, hand hygiene, hat, mask,, sterile gown, large sterile drape, and preparation with 2% chlorhexidine utilized. Local anesthesia with 1% lidocaine. Under real-time ultrasound guidance with real-time visualization of the needle entering the vein lumen, puncture vein using 21-gauge needle, passage 0.018 guidewire, exchange for 4 Nauruan peel-away sheath. The guidewire would not pass beyond about 30 cm. 4 [place] Bard dual-lumen power PICC cut to 44 cm. It was inserted through the peel-away sheath, but would not pass beyond the tip of the peel-away sheath. Multiple attempts made at manipulating wire and catheter, but nonetheless unable to advance. The sheath was removed and pressure held until hemostasis was achieved. The brachial vein was then accessed using a 21-gauge needle, passage 0.018 guidewire, exchange for 4 [place]aur[place] peel-away sheath. Again, the guidewire would not pass beyond about 30 cm. Attempts again made at catheter wire manipulation, unsuccessful. It was therefore elected to leave the midline. The catheter was cut to 15 cm and inserted through the peel-away sheath. Peel-away sheath and guidewire removed. Catheter fixed to the skin. Both catheter ports aspirated and flushed. Patient tolerated procedure well, without immediate complication. Followup chest x-ray obtained, documents catheter tip position at the level of the left axillary vein Impression: Attempted bedside placement of left arm PICC under sonographic guidance, as described above, unsuccessful at passing the catheter centrally, suspect due to central venoocclusive disease from previous port catheter placement. Catheter cut short, is suitable for use as a midline
[2020-03-16 16:00] VITALS: BP 93/53
--- NOTE | 2020-03-16 18:12 | Surgery Progress Note ---
Surgery Progress Note Subjective Procedure Performed 1. removal of infected left chest wall port 2. central venous catheter insertion Additional Comments left picc placed right temp tlc cath removed doing well plan home this evening outpatient f/u with oncology / heme Objective Last 24 Hour Vital Signs Date Time Temp Pulse Resp B/P (MAP) Pulse Ox O2 Delivery O2 Flow Rate FiO2 03/16/20 16:00 98.1 83 18 93/53 (66) 98 03/16/20 12:00 98.2 81 18 98/60 (73) 98 03/16/20 09:00 Room Air 03/16/20 08:00 97.3 84 18 106/62 (77) 96 03/16/20 04:00 98.1 73 18 97/61 (73) 100 03/16/20 00:00 97.5 72 17 90/63 (72) 100 03/15/20 21:00 Room Air 03/15/20 20:00 98.8 85 17 94/60 (71) 95 I&O Intake and Output 03/15/20 03/16/20 19:00 07:00 Intake Total 769 ml Balance 769 ml Intake Oral 600 ml IV Total 169 ml # Voids 4 2 Cardiovascular: RSR Respiratory: clear Abdomen: soft, flat, non-tender, present bowel sounds, non-distended Extremities: no edema, no tenderness, no cyanosis Laboratory Tests Test 03/16/20 04:00 White Blood Count 8.4 K/UL (4.8-10.8) Red Blood Count 2.66 M/UL (4.20-5.40) L Hemoglobin 8.2 G/DL (12.0-16.0) L Hematocrit 26.4 % (37.0-47.0) L Mean Corpuscular Volume 99 FL (80-99) Mean Corpuscular Hemoglobin 30.7 PG (27.0-31.0) Mean Corpuscular Hemoglobin Concent 30.9 G/DL (32.0-36.0) L Red Cell Distribution Width 18.6 % (11.6-14.8) H Platelet Count 225 K/UL (150-450) Mean Platelet Volume 8.4 FL (6.5-10.1) Neutrophils (%) (Auto) % (45.0-75.0) Lymphocytes (%) (Auto) % (20.0-45.0) Monocytes (%) (Auto) % (1.0-10.0) Eosinophils (%) (Auto) % (0.0-3.0) Basophils (%) (Auto) % (0.0-2.0) Differential Total Cells Counted 100 Neutrophils % (Manual) 42 % (45-75) L Lymphocytes % (Manual) 51 % (20-45) H Monocytes % (Manual) 7 % (1-10) Eosinophils % (Manual) 0 % (0-3) Basophils % (Manual) 0 % (0-2) Band Neutrophils 0 % (0-8) Platelet Estimate Adequate Platelet Morphology Normal Hypochromasia 1+ Anisocytosis 1+ Macrocytosis 1+ Sickle Cells Rare H Target Cells Occasional Tear Drop Cells Occasional Sodium Level 138 MMOL/L (136-145) Potassium Level 3.7 MMOL/L (3.5-5.1) Chloride Level 108 MMOL/L (98-107) H Carbon Dioxide Level 25 MMOL/L (21-32) Anion Gap 6 mmol/L (5-15) Blood Urea Nitrogen 11 mg/dL (7-18) Creatinine 1.1 MG/DL (0.55-1.30) Estimat Glomerular Filtration Rate > 60 mL/min (>60) Glucose Level 83 MG/DL (74-106) Calcium Level 6.8 MG/DL (8.5-10.1) L Total Bilirubin 1.6 MG/DL (0.2-1.0) H Direct Bilirubin 0.4 MG/DL (0.0-0.3) H Aspartate Amino Transf (AST/SGOT) 50 U/L (15-37) H Alanine Aminotransferase (ALT/SGPT) 26 U/L (12-78) Alkaline Phosphatase 63 U/L (46-116) Total Protein 7.1 G/DL (6.4-8.2) Albumin 2.3 G/DL (3.4-5.0) L Globulin 4.8 g/dL Albumin/Globulin Ratio 0.5 (1.0-2.7) L Plan Problems: (1) Sickle cell crisis (2) infected portacath Assessment & Plan: 44-year-old female with infected implanted left chest wall port. Cultures were taken by her tire mounter and doctors who are reviewed by her infectious these doctors and discussed me as well. Infection grew from the port. Port does need to be removed patient recent fevers and being somatic. Plan for port removal. Will likely need temporary line in the meantime given her requirements. Long discussion at the bedside with patient. Consent obtained. We will plan for port removal. Thank you will follow recommendations Port is out micro reviewed Labs noted Heme input noted We will plan for PICC line on Monday and remove the central line and then discharge home picc [place] [facility] tlc removed d/c outpatient f/u (3) Sickle cell crisis David Farah Mar 16, 2020 18:12
--- NOTE | 2020-03-16 18:13 | Operative Note - PDOC ---
Operative Note Operative Note Date of Operation/Procedure: Mar 16, 2020 Pre-op Diagnosis: infected left chest wall port a cath Procedure: 1. removal of right femoral triple-lumen catheter Post-op Diagnosis: same as pre-op Surgeon: David Farah Anesthesiologist: meka leyva Specimen: none Complications: none Condition: stable Fluids: none Estimated Blood Loss: minimal Drains: none Implant(s) used?: No Indications for Procedure 44-year-old female infected port status post removal needs IV access temporary central venous catheter right femoral placed after port removed now IV antibiotics blood cultures clean left PICC placed for patient and plan for removal right femoral TLC catheter Description of Procedure Patient was made comfortable the bedside. Dressings were removed sutures were cut right femoral temporary triple-lumen catheter central removed pressure held hemostasis obtained dressings applied patient tolerated procedure well David Farah Mar 16, 2020 18:13
--- NOTE | 2020-03-16 19:05 | Internal Med Progress Note ---
Subjective Date of Service: Mar 16, 2020 Physician Name Roberth Swain Attending Physician Mike Fernandez MD Current Medications Medications (Trade) Dose Ordered Sig/Baljeet Route PRN Reason Start Time Stop Time Status Last Admin Dose Admin Acetaminophen (Tylenol) 650 mg Q6H PRN ORAL Temp >100.5/ mild pain (1-3) 03/11/20 00:45 04/10/20 00:44 03/13/20 16:10 Albuterol Sulfate (Proventil ALIREZA) 2 puff Q4H PRN INH Shortness of Breath 03/11/20 00:45 06/09/20 00:44 03/13/20 09:50 Chlorhexidine Gluconate (Tatiana-Hex 2%) 1 applic BEDTIME TOPIC 03/11/20 21:00 06/09/20 20:59 03/15/20 20:35 Chlorhexidine Gluconate (Tatiana-Hex 2%) 1 applic DAILY@2000 TOPIC 03/15/20 20:00 06/13/20 19:59 03/15/20 20:34 Diphenhydramine HCl (Benadryl) 50 mg Q6H PRN IVP Itching 03/11/20 00:45 04/10/20 00:44 03/16/20 13:59 Folic Acid (Folate) 1 mg DAILY ORAL 03/12/20 09:00 04/11/20 08:59 03/16/20 08:23 Heparin Sodium (Porcine) (Heparin 5000 units/ml) 5,000 units EVERY 8 HOURS SUBQ 03/11/20 06:00 04/25/20 05:59 03/15/20 21:25 Heparin Sodium/ Sodium Chloride (Heparin 1000 units/500ml Premix) 1,000 unit ONCE PRN IV PICC LINE PLACEMENT 03/15/20 13:30 03/17/20 13:29 Hydromorphone HCl 2 mg/Sodium Chloride 56 ml @ 224 mls/hr Q4H PRN IVPB Moderate Pain (Pain Scale 4-6) 03/11/20 07:30 03/18/20 07:29 03/12/20 05:31 Hydromorphone HCl 4 mg/Sodium Chloride 57 ml @ 228 mls/hr Q4H PRN IVPB Severe Pain (Pain Scale 7-10) 03/11/20 07:30 03/18/20 07:29 03/16/20 14:00 Hydroxyurea (Hydrea) 500 mg TWICE A DAY ORAL 03/13/20 09:00 03/18/20 08:59 03/16/20 17:27 Lidocaine HCl (Xylocaine 1% 30ml) 30 ml ONCE PRN INJ PICC LINE PLACEMENT 03/15/20 13:30 03/17/20 13:29 Meropenem 2 gm/ Sodium Chloride 55 ml @ 110 mls/hr Q8HR IVPB 03/11/20 14:00 03/24/20 13:59 03/16/20 13:32 Ondansetron HCl (Zofran) 4 mg EVERY 4 HOURS PRN IVP Nausea & Vomiting 03/11/20 00:45 04/10/20 00:44 Allergies: Coded Allergies: SULFAMETHOXAZOLE (Verified Allergy, Unknown, hives, 03/11/20) TRIMETHOPRIM (Verified Allergy, Unknown, hives, 03/11/20) ROS Limited/Unobtainable: No Constitutional: Reports: no symptoms HEENT: Reports: no symptoms Cardiovascular: Reports: no symptoms Respiratory: Reports: no symptoms Gastrointestinal/Abdominal: Reports: no symptoms Genitourinary: Reports: no symptoms Neurologic/Psychiatric: Reports: no symptoms Subjective 44 YO F admitted with shortness of breath. Now COVID 19 pos and line sepsis. Cover for Int Shailesh-DR Fernandez Objective Last Vital Signs Date Time Temp Pulse Resp B/P (MAP) Pulse Ox O2 Delivery O2 Flow Rate FiO2 03/16/20 16:00 98.1 83 18 93/53 (66) 98 03/16/20 09:00 Room Air 03/11/20 17:12 3 Laboratory Tests Test 03/16/20 04:00 White Blood Count 8.4 K/UL (4.8-10.8) Red Blood Count 2.66 M/UL (4.20-5.40) L Hemoglobin 8.2 G/DL (12.0-16.0) L Hematocrit 26.4 % (37.0-47.0) L Mean Corpuscular Volume 99 FL (80-99) Mean Corpuscular Hemoglobin 30.7 PG (27.0-31.0) Mean Corpuscular Hemoglobin Concent 30.9 G/DL (32.0-36.0) L Red Cell Distribution Width 18.6 % (11.6-14.8) H Platelet Count 225 K/UL (150-450) Mean Platelet Volume 8.4 FL (6.5-10.1) Neutrophils (%) (Auto) % (45.0-75.0) Lymphocytes (%) (Auto) % (20.0-45.0) Monocytes (%) (Auto) % (1.0-10.0) Eosinophils (%) (Auto) % (0.0-3.0) Basophils (%) (Auto) % (0.0-2.0) Differential Total Cells Counted 100 Neutrophils % (Manual) 42 % (45-75) L Lymphocytes % (Manual) 51 % (20-45) H Monocytes % (Manual) 7 % (1-10) Eosinophils % (Manual) 0 % (0-3) Basophils % (Manual) 0 % (0-2) Band Neutrophils 0 % (0-8) Platelet Estimate Adequate Platelet Morphology Normal Hypochromasia 1+ Anisocytosis 1+ Macrocytosis 1+ Sickle Cells Rare H Target Cells Occasional Tear Drop Cells Occasional Sodium Level 138 MMOL/L (136-145) Potassium Level 3.7 MMOL/L (3.5-5.1) Chloride Level 108 MMOL/L (98-107) H Carbon Dioxide Level 25 MMOL/L (21-32) Anion Gap 6 mmol/L (5-15) Blood Urea Nitrogen 11 mg/dL (7-18) Creatinine 1.1 MG/DL (0.55-1.30) Estimat Glomerular Filtration Rate > 60 mL/min (>60) Glucose Level 83 MG/DL (74-106) Calcium Level 6.8 MG/DL (8.5-10.1) L Total Bilirubin 1.6 MG/DL (0.2-1.0) H Direct Bilirubin 0.4 MG/DL (0.0-0.3) H Aspartate Amino Transf (AST/SGOT) 50 U/L (15-37) H Alanine Aminotransferase (ALT/SGPT) 26 U/L (12-78) Alkaline Phosphatase 63 U/L (46-116) Total Protein 7.1 G/DL (6.4-8.2) Albumin 2.3 G/DL (3.4-5.0) L Globulin 4.8 g/dL Albumin/Globulin Ratio 0.5 (1.0-2.7) L Intake and Output 03/15/20 03/16/20 19:00 07:00 Intake Total 769 ml Balance 769 ml Intake Oral 600 ml IV Total 169 ml # Voids 4 2 Objective Objective General: No acute distress, awake and alert HEENT: NCAT, sclera anicteric, PERRL, EOMI. Neck: Supple, no significant jugular venous distention, Lungs: Fair inspiratory effort, , clear to auscultation bilaterally, no Wheeze or Rales. CHEST WALL: surgical incision intact. Heart: Regular rate and rhythm, normal S1/S2, no murmurs/gallops Abdomen: soft, nontender, nondistended. Normoactive bowel sounds. / Rectal: Refused and deferred. Extremities: No Cyanosis , clubbing or edema. right femoral triple-lumen catheter. Neuro: A&O x 3, Able to move all extremities Skin: warm, no rashes or lesions Psych: Normal mood and affect Assessment/Plan Assessment/Plan Assessment/Plan Assessment/Plan ASSESSMENT: This is a 44-year-old female: 1. Infected Port-A-Cath. 2. COVID-19 Pneumonia. 3. Severe sickle cell anemia. 4. Sickle cell crisis. 5. Severe Anemia. TREATMENT: 1. Line sepsis=acinetobacter from [facility] Infectious Diseases=with Dr. Herron . Abx: Meropenem day #07/20 monitor cultures. 2. Severe sickle cell anemia/sickle cell crisis. A Hematology/Oncology consultation has been obtained with Dr. Horne. The patient is currently receiving intravenous Dilaudid for pain control. 3. S/P kaden a cath removal 03/11/20 DVT prophylaxis heparin subcu Monitor laboratory. Discharge planning: home health and Roberth Strong MD Mar 16, 2020 19:05
[2020-03-16] MEDS ORDERED: MEROPENEM1 GM IV (19:11)
--- NOTE | 2020-03-16 19:31 | NUR ---
NURSE HAND-OFF: Important Events on Shift: Right fem removed by Dr. Farah, no sx of bleeding, ANSELMO midline inserted with orders for ok to use, endorsed DCP for pt to self-isolate thru 03/20 and continue IV Merrem till 03/25 Patient Status: Stable Diet: Regular Pending Orders: N Pending Results/Labs: N Pending MD notification: N Latest Vital Signs: Temperature 98.1 , Pulse 83 , B/P 93 /53 , Respiratory Rate 18 , O2 SAT 98 , Nasal Cannula, O2 Flow Rate 3 . Vital Sign Comment: Latest Whitt Fall Score: 35 Fall Risk: Medium Risk Safety Measures: Call light Within Reach, Bed Alarm Zone 1, Side Rails Side Rails x2, Bed position Low and Locked. Fall Precautions: Yellow Socks Report given to Marshall CARNES.
[2020-03-16 20:00] VITALS: BP 92/52
[2020-03-16] MEDS: Dyna-Hex 2% Top Sol 2oz TOPIC SCH ×2 (20:05)
--- NOTE | 2020-03-16 20:16 | NUR ---
NURSE NOTES: Patient in bed, awake, alert x 4. Able to make needs known. Bed, in low and locked position. Provided safe environment. Kept clean and comfortable. Midline noted on left upper arm. Flushed. skin is warm and dry to touch. Abdomen is soft and non distended. complained of pain, given PRn medication as ordered. Respiration is even and unlabored. call light is at bedside. Will continue plan of care.
[2020-03-17] VITALS: BP 91/54
[2020-03-17] MEDS: DiphenhydrAMINE 50mg/ml Inj IVP PRN ×2 (02:02→14:45)
[2020-03-17] MEDS: NS IVPB PRN ×3 (02:03→14:39)
[2020-03-17] MEDS: HYDROMORPHONE IVPB PRN ×3 (02:03→14:39)
[2020-03-17 04:00] VITALS: BP 95/50
[2020-03-17] MEDS: Meropenem 2 GM in NS 55 ML IVPB SCH ×2 (05:35→14:00)
[2020-03-17] MEDS: Heparin 5000 units/ml inj SUBQ SCH ×2 (05:36→14:00)
--- NOTE | 2020-03-17 06:24 | Hematology/Onc Progress Note ---
Assessment/Plan Assessment/Plan Assessment/Plan # Sickle cell disease sickle cell anemia --> hgb 5-->7.7->8.2 --> s/p transfusion --> will obtain anemia panel-->reviewed --> for sickle cell, r/o hemolysis, confirm sickle cell and obtain ldh, hapto, retic-->reviewed --> transfuse as needed --> outpatient heme --> dilaudid for pain control ==> continue hydrea # Leukocytosis due to COVID-19 pneumonia; COVID-19 positive 03/10/20 at [facility] -> Patient is currently afebrile and normoxemic on room air --> Patient was briefly given low flow oxygen via nasal cannula overnight --> Monitor for hypoxia and provide supplemental oxygen as needed --> per pulm --> Abx meropenem --> wbc 16-->7.5 # Port infection --> ID following --> Benyamini has removed # Dehydration --> goal euvolemia # Dvt ppx heparin sq Appreciate consultation and nicholas rn Subjective HEENT: Denies: no symptoms, eye pain, blurred vision, tearing, double vision, ear pain, ear discharge, nose pain, nose congestion, throat pain, throat swelling, mouth pain, mouth swelling, other Cardiovascular: Denies: no symptoms, chest pain, edema, irregular heart rate, lightheadedness, palpitations, syncope, other Respiratory: Denies: no symptoms, cough, shortness of breath, SOB with excertion, SOB at rest, sputum, wheezing, other Gastrointestinal/Abdominal: Denies: no symptoms, abdomen distended, abdominal pain, black stools, tarry stools, blood in stool, constipated, diarrhea, difficulty swallowing, nausea, poor appetite, poor fluid intake, rectal bleeding, vomiting, other Genitourinary: Denies: no symptoms, burning, discharge, frequency, flank pain, hematuria, incontinence, pain, urgency, other Neurologic/Psychiatric: Denies: no symptoms, anxiety, depressed, emotional problems, headache, numbness, paresthesia, pre-existing deficit, seizure, tingling, tremors, weakness, other Endocrine: Denies: no symptoms, excessive sweating, flushing, intolerance to cold, intolerance to heat, increased hunger, increased thirst, increased urine, unexplained weight gain, unexplained weight loss, other Hematologic/Lymphatic: Denies: no symptoms, anemia, easy bleeding, easy bruising, adenopathy, other Allergies: Coded Allergies: SULFAMETHOXAZOLE (Verified Allergy, Unknown, hives, 03/11/20) TRIMETHOPRIM (Verified Allergy, Unknown, hives, 03/11/20) Subjective 2 dw Rn in the am, have started on hydroxyurea, and folic acid 03/15 labs reviewed, meds noted, hgb stable, sickle screen+ 03/16 is comfortable, bp is low, dilaudid was given, meds noted, no night sweats 03/17 groin line has been removed, meds noted, no bleeding, hgb 8.2 Objective Objective Current Medications Medications (Trade) Dose Ordered Sig/Baljeet Route PRN Reason Start Time Stop Time Status Last Admin Dose Admin Acetaminophen (Tylenol) 650 mg Q6H PRN ORAL Temp >100.5/ mild pain (1-3) 03/11/20 00:45 04/10/20 00:44 03/13/20 16:10 Albuterol Sulfate (Proventil MDI) 2 puff Q4H PRN INH Shortness of Breath 03/11/20 00:45 06/09/20 00:44 03/13/20 09:50 Chlorhexidine Gluconate (Tatiana-Hex 2%) 1 applic BEDTIME TOPIC 03/11/20 21:00 06/09/20 20:59 03/16/20 20:05 Chlorhexidine Gluconate (Tatiana-Hex 2%) 1 applic DAILY@2000 TOPIC 03/15/20 20:00 06/13/20 19:59 03/16/20 20:05 Diphenhydramine HCl (Benadryl) 50 mg Q6H PRN IVP Itching 03/11/20 00:45 04/10/20 00:44 03/17/20 02:02 Folic Acid (Folate) 1 mg DAILY ORAL 03/12/20 09:00 04/11/20 08:59 03/16/20 08:23 Heparin Sodium (Porcine) (Heparin 5000 units/ml) 5,000 units EVERY 8 HOURS SUBQ 03/11/20 06:00 04/25/20 05:59 03/17/20 05:36 Heparin Sodium/ Sodium Chloride (Heparin 1000 units/500ml Premix) 1,000 unit ONCE PRN IV PICC LINE PLACEMENT 03/15/20 13:30 03/17/20 13:29 Hydromorphone HCl 2 mg/Sodium Chloride 56 ml @ 224 mls/hr Q4H PRN IVPB Moderate Pain (Pain Scale 4-6) 03/11/20 07:30 03/18/20 07:29 03/12/20 05:31 Hydromorphone HCl 4 mg/Sodium Chloride 57 ml @ 228 mls/hr Q4H PRN IVPB Severe Pain (Pain Scale 7-10) 03/11/20 07:30 03/18/20 07:29 03/17/20 02:03 Hydroxyurea (Hydrea) 500 mg TWICE A DAY ORAL 03/13/20 09:00 03/18/20 08:59 03/16/20 17:27 Lidocaine HCl (Xylocaine 1% 30ml) 30 ml ONCE PRN INJ PICC LINE PLACEMENT 03/15/20 13:30 03/17/20 13:29 Meropenem 2 gm/ Sodium Chloride 55 ml @ 110 mls/hr Q8HR IVPB 03/11/20 14:00 03/24/20 13:59 03/17/20 05:35 Ondansetron HCl (Zofran) 4 mg EVERY 4 HOURS PRN IVP Nausea & Vomiting 03/11/20 00:45 04/10/20 00:44 Last 24 Hour Vital Signs Date Time Temp Pulse Resp B/P (MAP) Pulse Ox O2 Delivery O2 Flow Rate FiO2 03/17/20 04:00 97.3 79 19 95/50 (65) 97 03/17/20 00:00 98.4 79 19 91/54 (66) 98 03/16/20 21:00 Room Air 03/16/20 20:00 98.1 81 19 92/52 (65) 100 03/16/20 16:00 98.1 83 18 93/53 (66) 98 03/16/20 12:00 98.2 81 18 98/60 (73) 98 03/16/20 09:00 Room Air 03/16/20 08:00 97.3 84 18 106/62 (77) 96 03/16/20 04:00 98.1 73 18 97/61 (73) 100 03/16/20 00:00 97.5 72 17 90/63 (72) 100 03/15/20 21:00 Room Air 03/15/20 20:00 98.8 85 17 94/60 (71) 95 03/15/20 16:00 98.6 93 18 99/67 (78) 95 03/15/20 14:49 98.6 03/15/20 12:00 98.4 80 18 93/60 (71) 98 03/15/20 09:00 Room Air 03/15/20 08:48 98.9 03/15/20 08:00 96.3 85 18 98/66 (77) 100 Intake and Output 03/16/20 03/17/20 19:00 07:00 Intake Total 357 ml Balance 357 ml Intake Oral 300 ml IV Total 57 ml # Voids 2 Labs Test 03/15/20 04:30 03/16/20 04:00 White Blood Count 7.6 K/UL (4.8-10.8) 8.4 K/UL (4.8-10.8) Red Blood Count 2.66 M/UL (4.20-5.40) 2.66 M/UL (4.20-5.40) Hemoglobin 8.0 G/DL (12.0-16.0) 8.2 G/DL (12.0-16.0) Hematocrit 26.3 % (37.0-47.0) 26.4 % (37.0-47.0) Mean Corpuscular Volume 99 FL (80-99) 99 FL (80-99) Mean Corpuscular Hemoglobin 30.1 PG (27.0-31.0) 30.7 PG (27.0-31.0) Mean Corpuscular Hemoglobin Concent 30.5 G/DL (32.0-36.0) 30.9 G/DL (32.0-36.0) Red Cell Distribution Width 18.7 % (11.6-14.8) 18.6 % (11.6-14.8) Platelet Count 241 K/UL (150-450) 225 K/UL (150-450) Mean Platelet Volume 7.8 FL (6.5-10.1) 8.4 FL (6.5-10.1) Neutrophils (%) (Auto) 57.4 % (45.0-75.0) % (45.0-75.0) Lymphocytes (%) (Auto) 35.3 % (20.0-45.0) % (20.0-45.0) Monocytes (%) (Auto) 6.1 % (1.0-10.0) % (1.0-10.0) Eosinophils (%) (Auto) 0.2 % (0.0-3.0) % (0.0-3.0) Basophils (%) (Auto) 1.0 % (0.0-2.0) % (0.0-2.0) Sodium Level 138 MMOL/L (136-145) 138 MMOL/L (136-145) Potassium Level 3.9 MMOL/L (3.5-5.1) 3.7 MMOL/L (3.5-5.1) Chloride Level 107 MMOL/L (98-107) 108 MMOL/L (98-107) Carbon Dioxide Level 24 MMOL/L (21-32) 25 MMOL/L (21-32) Anion Gap 8 mmol/L (5-15) 6 mmol/L (5-15) Blood Urea Nitrogen 12 mg/dL (7-18) 11 mg/dL (7-18) Creatinine 1.2 MG/DL (0.55-1.30) 1.1 MG/DL (0.55-1.30) Estimat Glomerular Filtration Rate 59.4 mL/min (>60) > 60 mL/min (>60) Glucose Level 82 MG/DL (74-106) 83 MG/DL (74-106) Calcium Level 7.1 MG/DL (8.5-10.1) 6.8 MG/DL (8.5-10.1) Differential Total Cells Counted 100 Neutrophils % (Manual) 42 % (45-75) Lymphocytes % (Manual) 51 % (20-45) Monocytes % (Manual) 7 % (1-10) Eosinophils % (Manual) 0 % (0-3) Basophils % (Manual) 0 % (0-2) Band Neutrophils 0 % (0-8) Platelet Estimate Adequate Platelet Morphology Normal Hypochromasia 1+ Anisocytosis 1+ Macrocytosis 1+ Sickle Cells Rare Target Cells Occasional Tear Drop Cells Occasional Total Bilirubin 1.6 MG/DL (0.2-1.0) Direct Bilirubin 0.4 MG/DL (0.0-0.3) Aspartate Amino Transf (AST/SGOT) 50 U/L (15-37) Alanine Aminotransferase (ALT/SGPT) 26 U/L (12-78) Alkaline Phosphatase 63 U/L (46-116) Total Protein 7.1 G/DL (6.4-8.2) Albumin 2.3 G/DL (3.4-5.0) Globulin 4.8 g/dL Albumin/Globulin Ratio 0.5 (1.0-2.7) Height (Feet): 5 Height (Inches): 1.00 Weight (Pounds): 130 Objective PHYSICAL EXAMINATION: VITAL SIGNS: reviewed General: Patient sitting up in bed getting IV access by a nurse, not in respiratory distress at the moment on room air HEENT: Head exam reveals that the head is normocephalic, atraumatic without deformity or unusual swelling. Right hazy eye CHEST AND LUNGS: Reveals clear, normal, symmetrical breath sounds with no adventitious sounds. CARDIOVASCULAR: Reveals normal S1, S2 without murmurs, rubs, or clicks. ABDOMEN: Soft with no tenderness or organomegaly. RECTAL: Deferred. MUSCULOSKELETAL: There is no tenderness to palpation. Range of motion is normal. NEUROLOGICAL: Alert and oriented x3 , nonfocal Redd Horne MD Mar 17, 2020 06:24
[2020-03-17 06:42] LABS: BASOPHILS % (AUTO) 1.7 % (0.0-2.0); EOSINOPHILS % (AUTO) 0.3 % (0.0-3.0); HEMATOCRIT 27.3 % (37.0-47.0); HEMOGLOBIN 8.6 G/DL (12.0-16.0); LYMPHOCYTES % (AUTO) 46.4 % (20.0-45.0); MEAN CORPUSCULAR VOLUME 100 FL (80-99); MONOCYTES % (AUTO) 3.7 % (1.0-10.0); NEUTROPHILS % (AUTO) 47.9 % (45.0-75.0); PLATELET COUNT 234 K/UL (150-450); RED BLOOD COUNT 2.72 M/UL (4.20-5.40); RED CELL DISTRIBUTION WIDTH 18.9 % (11.6-14.8); WHITE BLOOD COUNT 6.6 K/UL (4.8-10.8)
--- NOTE | 2020-03-17 07:08 | NUR ---
NURSE HAND-OFF: Important Events on Shift:Pain med IVPB, for discharge Patient Status: WNL Diet: REG Pending Orders: Pending Results/Labs: Pending MD notification: Latest Vital Signs: Temperature 97.3 , Pulse 79 , B/P 95 /50 , Respiratory Rate 19 , O2 SAT 97 , Nasal Cannula, O2 Flow Rate 3 . Vital Sign Comment: WNL Latest Whitt Fall Score: 35 Fall Risk: Medium Risk Safety Measures: Call light Within Reach, Bed Alarm Zone 1, Side Rails Side Rails x2, Bed position Low and Locked. Fall Precautions: Yellow Socks Report given to Taylor Tomas.
[2020-03-17 07:14] LABS: ANION GAP 5 mmol/L (5-15); BLOOD UREA NITROGEN 10 mg/dL (7-18); CALCIUM 7.6 MG/DL (8.5-10.1); CARBON DIOXIDE 23 MMOL/L (21-32); CHLORIDE 110 MMOL/L (98-107); CREATININE 1.1 MG/DL (0.55-1.30); POTASSIUM 4.2 MMOL/L (3.5-5.1); SODIUM 138 MMOL/L (136-145)
--- NOTE | 2020-03-17 07:45 | NUR ---
NURSE NOTES: Received report from TRICE Olivares. Patient in bed, awake, alert x 4. Breathing even and unlabored on RA. Pt c/o pain /, will administer PRN pain med as ordered. Midline noted on left upper arm, intact and patent. call light within reach. Will continue plan of care.
[2020-03-17 08:00] VITALS: BP 96/61
--- NOTE | 2020-03-17 08:46 | Infectious Diseases Prog Note ---
Assessment/Plan 44yo F with: Acinetobacter baumanii bacteremia, CLABSI Afebrile Leukocytosis to 15 Port infection, dx'd by her Heme/onc doctor at [facility], Dr. Sampson Lazaro (I spoke with him on the phone to obtain the following results) 01/07 BCx Acinetobacter pitti S-bactrim, levoflox, meropenem, gent, amikacin Was on levoflox then bactrim for this 02/05 BCx Acinetobacter baumanni complex 03/02 BCx Acinetobacter baumanni, S-amikacin, ant, minocycline Was on IV abx for this, then on minocycline 03/11 BCx NTD 03/11 Port removal, R fem central line placed for access TTE neg for vegetations 03/12 BCx NTD 03/16 PICC placed, R fem line removed COVID pneumonia Satting well on RA Afebrile / COVID PCR positive at [facility] Flu neg CXR: Patchy bilateral infiltrates. Findings related to multifocal pneumonia. Clinical correlation and follow-up recommended. Sickle cell disease Anemia to 5s HIV screen neg Plan: Cont meropenem 2g IV q8hrs #7/ to target Acinetobacter in prior BCx from [facility] Needs to complete 2 wk course of IV meropenem on discharge given prior positive BCx 03/10 CLABSI. End date is 03/25. No current tx for COVID indicated given satting well on RA Needs COVID isolation for 10 days from diagnosis 03/10 - so through 03/20 Monitor CBC/CMP Monitor temp curve, hemodynamics Monitor resp status COVID isolation D/w RN Thank you for this consult. [facility] will continue to follow. Subjective Allergies: Coded Allergies: SULFAMETHOXAZOLE (Verified Allergy, Unknown, hives, 03/11/20) TRIMETHOPRIM (Verified Allergy, Unknown, hives, 03/11/20) AF NAD Breathing stable on RA WBC 6.6 Doing well, no complaints Objective Last 24 Hour Vital Signs Date Time Temp Pulse Resp B/P (MAP) Pulse Ox O2 Delivery O2 Flow Rate FiO2 03/17/20 04:00 97.3 79 19 95/50 (65) 97 03/17/20 00:00 98.4 79 19 91/54 (66) 98 03/16/20 21:00 Room Air 03/16/20 20:00 98.1 81 19 92/52 (65) 100 03/16/20 16:00 98.1 83 18 93/53 (66) 98 03/16/20 12:00 98.2 81 18 98/60 (73) 98 03/16/20 09:00 Room Air Height (Feet): 5 Height (Inches): 1.00 Weight (Pounds): 130 Gen: NAD HEENT: NCAT, R eye white Pulm: BL chest rise on RA Abd: Non-distended Ext: No c/c/e Skin: No visible rashes Neuro: Awake, alert, interactive Lines: LUE PICC Laboratory Tests Test 03/17/20 05:20 White Blood Count 6.6 K/UL (4.8-10.8) Red Blood Count 2.72 M/UL (4.20-5.40) L Hemoglobin 8.6 G/DL (12.0-16.0) L Hematocrit 27.3 % (37.0-47.0) L Mean Corpuscular Volume 100 FL (80-99) H Mean Corpuscular Hemoglobin 31.4 PG (27.0-31.0) H Mean Corpuscular Hemoglobin Concent 31.3 G/DL (32.0-36.0) L Red Cell Distribution Width 18.9 % (11.6-14.8) H Platelet Count 234 K/UL (150-450) Mean Platelet Volume 8.0 FL (6.5-10.1) Neutrophils (%) (Auto) 47.9 % (45.0-75.0) Lymphocytes (%) (Auto) 46.4 % (20.0-45.0) H Monocytes (%) (Auto) 3.7 % (1.0-10.0) Eosinophils (%) (Auto) 0.3 % (0.0-3.0) Basophils (%) (Auto) 1.7 % (0.0-2.0) Sodium Level 138 MMOL/L (136-145) Potassium Level 4.2 MMOL/L (3.5-5.1) Chloride Level 110 MMOL/L (98-107) H Carbon Dioxide Level 23 MMOL/L (21-32) Anion Gap 5 mmol/L (5-15) Blood Urea Nitrogen 10 mg/dL (7-18) Creatinine 1.1 MG/DL (0.55-1.30) Estimat Glomerular Filtration Rate > 60 mL/min (>60) Glucose Level 91 MG/DL (74-106) Calcium Level 7.6 MG/DL (8.5-10.1) L Current Medications Medications (Trade) Dose Ordered Sig/Baljeet Route PRN Reason Start Time Stop Time Status Last Admin Dose Admin Acetaminophen (Tylenol) 650 mg Q6H PRN ORAL Temp >100.5/ mild pain (1-3) 03/11/20 00:45 04/10/20 00:44 03/13/20 16:10 Albuterol Sulfate (Proventil MDI) 2 puff Q4H PRN INH Shortness of Breath 03/11/20 00:45 06/09/20 00:44 03/13/20 09:50 Chlorhexidine Gluconate (Tatiana-Hex 2%) 1 applic BEDTIME TOPIC 03/11/20 21:00 06/09/20 20:59 03/16/20 20:05 Chlorhexidine Gluconate (Tatiana-Hex 2%) 1 applic DAILY@2000 TOPIC 03/15/20 20:00 06/13/20 19:59 03/16/20 20:05 Diphenhydramine HCl (Benadryl) 50 mg Q6H PRN IVP Itching 03/11/20 00:45 04/10/20 00:44 03/17/20 02:02 Folic Acid (Folate) 1 mg DAILY ORAL 03/12/20 09:00 04/11/20 08:59 03/17/20 08:28 Heparin Sodium (Porcine) (Heparin 5000 units/ml) 5,000 units EVERY 8 HOURS SUBQ 03/11/20 06:00 04/25/20 05:59 03/17/20 05:36 Heparin Sodium/ Sodium Chloride (Heparin 1000 units/500ml Premix) 1,000 unit ONCE PRN IV PICC LINE PLACEMENT 03/15/20 13:30 03/17/20 13:29 Hydromorphone HCl 2 mg/Sodium Chloride 56 ml @ 224 mls/hr Q4H PRN IVPB Moderate Pain (Pain Scale 4-6) 03/11/20 07:30 03/18/20 07:29 03/12/20 05:31 Hydromorphone HCl 4 mg/Sodium Chloride 57 ml @ 228 mls/hr Q4H PRN IVPB Severe Pain (Pain Scale 7-10) 03/11/20 07:30 03/18/20 07:29 03/17/20 08:29 Hydroxyurea (Hydrea) 500 mg TWICE A DAY ORAL 03/13/20 09:00 03/18/20 08:59 03/16/20 17:27 Lidocaine HCl (Xylocaine 1% 30ml) 30 ml ONCE PRN INJ PICC LINE PLACEMENT 03/15/20 13:30 03/17/20 13:29 Meropenem 2 gm/ Sodium Chloride 55 ml @ 110 mls/hr Q8HR IVPB 03/11/20 14:00 03/24/20 13:59 03/17/20 05:35 Ondansetron HCl (Zofran) 4 mg EVERY 4 HOURS PRN IVP Nausea & Vomiting 03/11/20 00:45 04/10/20 00:44 Rupali Herron M.D. Mar 17, 2020 08:46
--- NOTE | 2020-03-17 08:47 | Pulmonology Progress Note ---
Subjective ROS Limited/Unobtainable: No Interval Events: None new Constitutional: Reports: no symptoms HEENT: Repors: no symptoms Respiratory: Reports: no symptoms Cardiovascular: Reports: no symptoms Gastrointestinal/Abdominal: Reports: no symptoms Allergies: Coded Allergies: SULFAMETHOXAZOLE (Verified Allergy, Unknown, hives, 03/11/20) TRIMETHOPRIM (Verified Allergy, Unknown, hives, 03/11/20) Objective Last 24 Hour Vital Signs Date Time Temp Pulse Resp B/P (MAP) Pulse Ox O2 Delivery O2 Flow Rate FiO2 03/17/20 04:00 97.3 79 19 95/50 (65) 97 03/17/20 00:00 98.4 79 19 91/54 (66) 98 03/16/20 21:00 Room Air 03/16/20 20:00 98.1 81 19 92/52 (65) 100 03/16/20 16:00 98.1 83 18 93/53 (66) 98 03/16/20 12:00 98.2 81 18 98/60 (73) 98 03/16/20 09:00 Room Air Intake and Output 03/16/20 03/17/20 19:00 07:00 Intake Total 357 ml Output Total 450 ml Balance 357 ml -450 ml Intake Oral 300 ml IV Total 57 ml Other 450 ml # Voids 2 General Appearance: no acute distress Respiratory: lungs clear Cardiovascular: normal rate Abdomen: soft, non tender Laboratory Tests 03/17/20 05:20: White Blood Count 6.6, Red Blood Count 2.72L, Hemoglobin 8.6L, Hematocrit 27.3L, Mean Corpuscular Volume 100H, Mean Corpuscular Hemoglobin 31.4H, Mean Co rpuscular Hemoglobin Concent 31.3L, Red Cell Distribution Width 18.9H, Platelet Count 234, Mean Platelet Volume 8.0, Neutrophils (%) (Auto) 47.9, Lymphocytes (%) (Auto) 46.4H, Monocytes (%) (Auto) 3.7, Eosinophils (%) (Auto) 0.3, Basophils (%) (Auto) 1.7, Sodium Level 138, Potassium Level 4.2, Chloride Level 110H, Carbon Dioxide Level 23, Anion Gap 5, Blood Urea Nitrogen 10, Creatinine 1.1, Estimat Glomerular Filtration Rate > 60, Glucose Level 91, Calcium Level 7.6L Current Medications Medications (Trade) Dose Ordered Sig/Baljeet Route PRN Reason Start Time Stop Time Status Last Admin Dose Admin Acetaminophen (Tylenol) 650 mg Q6H PRN ORAL Temp >100.5/ mild pain (1-3) 03/11/20 00:45 04/10/20 00:44 03/13/20 16:10 Albuterol Sulfate (Proventil MDI) 2 puff Q4H PRN INH Shortness of Breath 03/11/20 00:45 06/09/20 00:44 03/13/20 09:50 Chlorhexidine Gluconate (Tatiana-Hex 2%) 1 applic BEDTIME TOPIC 03/11/20 21:00 06/09/20 20:59 03/16/20 20:05 Chlorhexidine Gluconate (Tatiana-Hex 2%) 1 applic DAILY@2000 TOPIC 03/15/20 20:00 06/13/20 19:59 03/16/20 20:05 Diphenhydramine HCl (Benadryl) 50 mg Q6H PRN IVP Itching 03/11/20 00:45 04/10/20 00:44 03/17/20 02:02 Folic Acid (Folate) 1 mg DAILY ORAL 03/12/20 09:00 04/11/20 08:59 03/17/20 08:28 Heparin Sodium (Porcine) (Heparin 5000 units/ml) 5,000 units EVERY 8 HOURS SUBQ 03/11/20 06:00 04/25/20 05:59 03/17/20 05:36 Heparin Sodium/ Sodium Chloride (Heparin 1000 units/500ml Premix) 1,000 unit ONCE PRN IV PICC LINE PLACEMENT 03/15/20 13:30 03/17/20 13:29 Hydromorphone HCl 2 mg/Sodium Chloride 56 ml @ 224 mls/hr Q4H PRN IVPB Moderate Pain (Pain Scale 4-6) 03/11/20 07:30 03/18/20 07:29 03/12/20 05:31 Hydromorphone HCl 4 mg/Sodium Chloride 57 ml @ 228 mls/hr Q4H PRN IVPB Severe Pain (Pain Scale 7-10) 03/11/20 07:30 03/18/20 07:29 03/17/20 08:29 Hydroxyurea (Hydrea) 500 mg TWICE A DAY ORAL 03/13/20 09:00 03/18/20 08:59 03/16/20 17:27 Lidocaine HCl (Xylocaine 1% 30ml) 30 ml ONCE PRN INJ PICC LINE PLACEMENT 03/15/20 13:30 03/17/20 13:29 Meropenem 2 gm/ Sodium Chloride 55 ml @ 110 mls/hr Q8HR IVPB 03/11/20 14:00 03/24/20 13:59 03/17/20 05:35 Ondansetron HCl (Zofran) 4 mg EVERY 4 HOURS PRN IVP Nausea & Vomiting 03/11/20 00:45 04/10/20 00:44 Assessment/Plan Assessment/Plan 1. COVID-19 pneumonia; COVID-19 positive 03/10/20 at [place] -Patient is currently afebrile and normoxemic on room air -Patient was briefly given low flow oxygen via nasal cannula -Monitor for hypoxia and provide supplemental oxygen as needed -At this time, no indication for specific therapy for COVID-19 - Continue isolation through 03/20 2. Sickle cell disease sickle cell anemia -Per primary MD and ID specialist - s/p transfusion 3. Port infection -ID following Awaiting discharge home with home health Medically stable for discharge from pulmonary standpoint The care for this patient was discussed with my supervising physician Time spent for this case was approximately 31 minutes Lior Hong Mar 17, 2020 08:47
--- NOTE | 2020-03-17 10:13 | NUR ---
NURSE NOTES: Patient's assigned CM is not available @ this time. avionic technician called HH and spoke to Sol Corey who was following up with the patient regarding HH. Unable to discharge patient due to HH arrangement. Will follow up with HH and CM. Primary nurse is aware.
[2020-03-17 12:00] VITALS: BP 101/67
--- NOTE | 2020-03-17 12:05 | Surgery Progress Note ---
Surgery Progress Note Subjective Procedure Performed 1. removal of right femoral triple-lumen catheter Symptoms: improved, tolerating diet, voiding well, passing flatus, BM Objective Last 24 Hour Vital Signs Date Time Temp Pulse Resp B/P (MAP) Pulse Ox O2 Delivery O2 Flow Rate FiO2 03/17/20 08:59 97.3 03/17/20 04:00 97.3 79 19 95/50 (65) 97 03/17/20 00:00 98.4 79 19 91/54 (66) 98 03/16/20 21:00 Room Air 03/16/20 20:00 98.1 81 19 92/52 (65) 100 03/16/20 16:00 98.1 83 18 93/53 (66) 98 I&O Intake and Output 03/16/20 03/17/20 19:00 07:00 Intake Total 357 ml Output Total 450 ml Balance 357 ml -450 ml Intake Oral 300 ml IV Total 57 ml Other 450 ml # Voids 2 Dressing: dry Wound: clean, dry Cardiovascular: RSR Respiratory: clear Abdomen: soft, flat, non-tender, present bowel sounds Extremities: no edema, no tenderness, no cyanosis Laboratory Tests Test 03/17/20 05:20 White Blood Count 6.6 K/UL (4.8-10.8) Red Blood Count 2.72 M/UL (4.20-5.40) L Hemoglobin 8.6 G/DL (12.0-16.0) L Hematocrit 27.3 % (37.0-47.0) L Mean Corpuscular Volume 100 FL (80-99) H Mean Corpuscular Hemoglobin 31.4 PG (27.0-31.0) H Mean Corpuscular Hemoglobin Concent 31.3 G/DL (32.0-36.0) L Red Cell Distribution Width 18.9 % (11.6-14.8) H Platelet Count 234 K/UL (150-450) Mean Platelet Volume 8.0 FL (6.5-10.1) Neutrophils (%) (Auto) 47.9 % (45.0-75.0) Lymphocytes (%) (Auto) 46.4 % (20.0-45.0) H Monocytes (%) (Auto) 3.7 % (1.0-10.0) Eosinophils (%) (Auto) 0.3 % (0.0-3.0) Basophils (%) (Auto) 1.7 % (0.0-2.0) Sodium Level 138 MMOL/L (136-145) Potassium Level 4.2 MMOL/L (3.5-5.1) Chloride Level 110 MMOL/L (98-107) H Carbon Dioxide Level 23 MMOL/L (21-32) Anion Gap 5 mmol/L (5-15) Blood Urea Nitrogen 10 mg/dL (7-18) Creatinine 1.1 MG/DL (0.55-1.30) Estimat Glomerular Filtration Rate > 60 mL/min (>60) Glucose Level 91 MG/DL (74-106) Calcium Level 7.6 MG/DL (8.5-10.1) L Plan Problems: (1) Sickle cell crisis (2) infected portacath Assessment & Plan: 44-year-old female with infected implanted left chest wall port. Cultures were taken by her corrections unit supervisor and doctors who are reviewed by her infectious these doctors and discussed me as well. Infection grew from the port. Port does need to be removed patient recent fevers and being somatic. Plan for port removal. Will likely need temporary line in the meantime given her requirements. Long discussion at the bedside with patient. Consent obtained. We will plan for port removal. Thank you will follow recommendations Port is out micro reviewed Labs noted Heme input noted We will plan for PICC line on Monday and remove the central line and then discharge home picc [facility] tlc removed d/c outpatient f/u (3) Sickle cell crisis David Farah Mar 17, 2020 12:04
[2020-03-17 16:00] VITALS: BP 96/58
--- NOTE | 2020-03-17 17:55 | NUR ---
NURSE NOTES: Pt in stable condition. Provided discharge instructions, home health information. Pt verbalized understanding. Home med returned to pt. All belongings were accounted for. IV and ID band removed. Pt discharge home with Midline on ANSELMO, dressing clean and dry. Pt was escorted by nurse to downstair and picked up by son.
--- NOTE | 2020-03-17 18:51 | Internal Med Progress Note ---
Subjective Date of Service: Mar 17, 2020 Physician Name Roberth Swain Attending Physician Mike Fernandez MD Current Medications Medications (Trade) Dose Ordered Sig/Baljeet Route PRN Reason Start Time Stop Time Status Last Admin Dose Admin Acetaminophen (Tylenol) 650 mg Q6H PRN ORAL Temp >100.5/ mild pain (1-3) 03/11/20 00:45 04/10/20 00:44 03/13/20 16:10 Albuterol Sulfate (Proventil ALIREZA) 2 puff Q4H PRN INH Shortness of Breath 03/11/20 00:45 06/09/20 00:44 03/13/20 09:50 Chlorhexidine Gluconate (Tatiana-Hex 2%) 1 applic BEDTIME TOPIC 03/11/20 21:00 06/09/20 20:59 03/16/20 20:05 Chlorhexidine Gluconate (Tatiana-Hex 2%) 1 applic DAILY@2000 TOPIC 03/15/20 20:00 06/13/20 19:59 03/16/20 20:05 Diphenhydramine HCl (Benadryl) 50 mg Q6H PRN IVP Itching 03/11/20 00:45 04/10/20 00:44 03/17/20 14:45 Folic Acid (Folate) 1 mg DAILY ORAL 03/12/20 09:00 04/11/20 08:59 03/17/20 08:28 Heparin Sodium (Porcine) (Heparin 5000 units/ml) 5,000 units EVERY 8 HOURS SUBQ 03/11/20 06:00 04/25/20 05:59 03/17/20 05:36 Hydromorphone HCl 2 mg/Sodium Chloride 56 ml @ 224 mls/hr Q4H PRN IVPB Moderate Pain (Pain Scale 4-6) 03/11/20 07:30 03/18/20 07:29 03/12/20 05:31 Hydromorphone HCl 4 mg/Sodium Chloride 57 ml @ 228 mls/hr Q4H PRN IVPB Severe Pain (Pain Scale 7-10) 03/11/20 07:30 03/18/20 07:29 03/17/20 14:39 Hydroxyurea (Hydrea) 500 mg TWICE A DAY ORAL 03/13/20 09:00 03/18/20 08:59 03/16/20 17:27 Meropenem 2 gm/ Sodium Chloride 55 ml @ 110 mls/hr Q8HR IVPB 03/11/20 14:00 03/24/20 13:59 03/17/20 14:00 Ondansetron HCl (Zofran) 4 mg EVERY 4 HOURS PRN IVP Nausea & Vomiting 03/11/20 00:45 04/10/20 00:44 Allergies: Coded Allergies: SULFAMETHOXAZOLE (Verified Allergy, Unknown, hives, 03/11/20) TRIMETHOPRIM (Verified Allergy, Unknown, hives, 03/11/20) ROS Limited/Unobtainable: No Constitutional: Reports: no symptoms HEENT: Reports: no symptoms Cardiovascular: Reports: no symptoms Respiratory: Reports: no symptoms Gastrointestinal/Abdominal: Reports: no symptoms Genitourinary: Reports: no symptoms Neurologic/Psychiatric: Reports: no symptoms Subjective 44 YO F admitted with shortness of breath. Now COVID 19 pos and line sepsis. Cover for Int Med-DR Fernandez Objective Last Vital Signs Date Time Temp Pulse Resp B/P (MAP) Pulse Ox O2 Delivery O2 Flow Rate FiO2 03/17/20 16:00 97.7 83 17 96/58 (71) 98 03/17/20 09:00 Room Air 03/11/20 17:12 3 Laboratory Tests Test 03/17/20 05:20 White Blood Count 6.6 K/UL (4.8-10.8) Red Blood Count 2.72 M/UL (4.20-5.40) L Hemoglobin 8.6 G/DL (12.0-16.0) L Hematocrit 27.3 % (37.0-47.0) L Mean Corpuscular Volume 100 FL (80-99) H Mean Corpuscular Hemoglobin 31.4 PG (27.0-31.0) H Mean Corpuscular Hemoglobin Concent 31.3 G/DL (32.0-36.0) L Red Cell Distribution Width 18.9 % (11.6-14.8) H Platelet Count 234 K/UL (150-450) Mean Platelet Volume 8.0 FL (6.5-10.1) Neutrophils (%) (Auto) 47.9 % (45.0-75.0) Lymphocytes (%) (Auto) 46.4 % (20.0-45.0) H Monocytes (%) (Auto) 3.7 % (1.0-10.0) Eosinophils (%) (Auto) 0.3 % (0.0-3.0) Basophils (%) (Auto) 1.7 % (0.0-2.0) Sodium Level 138 MMOL/L (136-145) Potassium Level 4.2 MMOL/L (3.5-5.1) Chloride Level 110 MMOL/L (98-107) H Carbon Dioxide Level 23 MMOL/L (21-32) Anion Gap 5 mmol/L (5-15) Blood Urea Nitrogen 10 mg/dL (7-18) Creatinine 1.1 MG/DL (0.55-1.30) Estimat Glomerular Filtration Rate > 60 mL/min (>60) Glucose Level 91 MG/DL (74-106) Calcium Level 7.6 MG/DL (8.5-10.1) L Intake and Output 03/16/20 03/17/20 19:00 07:00 Intake Total 357 ml Output Total 450 ml Balance 357 ml -450 ml Intake Oral 300 ml IV Total 57 ml Other 450 ml # Voids 2 Objective Objective General: No acute distress, awake and alert HEENT: NCAT, sclera anicteric, PERRL, EOMI. Neck: Supple, no significant jugular venous distention, Lungs: Fair inspiratory effort, , clear to auscultation bilaterally, no Wheeze or Rales. CHEST WALL: surgical incision intact. Heart: Regular rate and rhythm, normal S1/S2, no murmurs/gallops Abdomen: soft, nontender, nondistended. Normoactive bowel sounds. / Rectal: Refused and deferred. Extremities: No Cyanosis , clubbing or edema. right femoral triple-lumen catheter. Neuro: A&O x 3, Able to move all extremities Skin: warm, no rashes or lesions Psych: Normal mood and affect Assessment/Plan Assessment/Plan Assessment/Plan Assessment/Plan ASSESSMENT: This is a 44-year-old female: 1. Infected Port-A-Cath. 2. COVID-19 Pneumonia. 3. Severe sickle cell anemia. 4. Sickle cell crisis. 5. Severe Anemia. TREATMENT: 1. Line sepsis=acinetobacter from [facility] Infectious Diseases=with Dr. Herron . Abx: Meropenem day #07/20 monitor cultures. 2. Severe sickle cell anemia/sickle cell crisis. A Hematology/Oncology consultation has been obtained with Dr. Horne. The patient is currently receiving intravenous Dilaudid for pain control. 3. S/P kaden a cath removal 03/11/20 DVT prophylaxis heparin subcu Monitor laboratory. Discharge home today with [facility] and Roberth Strong MD Mar 17, 2020 18:50
--- NOTE | 2020-03-19 16:08 | Discharge Summary ---
Discharge Summary Discharge Summary _ Date of admission: 03/10/2020 Date of discharge: 03/17/[address] Fernandez History of Present Illness and Brief Hospital Course Ms. Mora is a 44-year-old female with past medical history of sickle cell disease who was transferred from [place] for insurance purposes. It was reported that she went to [place] for evaluation of runny nose and body aches. She reported having a left Port-A-Cath in the chest wall for sickle cell treatment. Patient stated that she was diagnosed with a left Port-A-Cath infection. She had been treated as an outpatient with oral Bactrim which was discontinued. Patient then was on another antibiotic, either clindamycin or doxycycline. Patient tested positive for COVID-19 when she went to [facility] emergency room. Patient was admitted to the hospital for further management. Patient was initially found to be anemic and was transfused. Her chest x-ray was notable for patchy bilateral infiltrates. However, patient's oxygen saturation remained stable on room air and no specific therapy for COVID-19 was indicated. She needed low-flow oxygen briefly but mostly remained on room air during hospitalization. Given the infected Port-A-Cath, patient was started on antibiotics. Patient was also given pain medication. The initial culture grew Acinetobacter. She continued to receive antibiotics. A follow-up blood culture showed no growth. The infected left chest wall port was removed and a right femoral central line was placed for access. TTE was negative for vegetations. A PICC line was inserted and the femoral central line was removed. Patient is to complete 2- week course of IV meropenem on discharge given prior positive blood cultures. The end date is 03/25/2020. Patient was medically stable for discharge and was discharged on 03/17/2020 with a PICC line. Consultants: Infectious disease Dr. Herron Surgery Dr. Farah Hematology oncology Dr. Horne Pulmonology Dr. Smith Discharge Condition Improved and stable Final diagnoses Acinetobacter baumanii bacteremia Leukocytosis Port infection COVID-19 pneumonia Sickle cell disease Sickle cell anemia Dehydration I have been assigned to dictate discharge summary for this account. Lior Hong Mar 19, 2020 16:08
== END 2020-03-17 17:55 | disposition home health service (06) | DRG 314 ==
LOC: 4E 23:23
DX: T80.211A Bloodstream infection due to central venous catheter, initial encounter (principal); U07.1 COVID-19; D57.00 Hb-SS disease with crisis, unspecified; J12.82 Pneumonia due to coronavirus disease 2019; A41.59 Other Gram-negative sepsis; Z88.1 Allergy status to other antibiotic agents; Z88.2 Allergy status to sulfonamides; E86.0 Dehydration
CPT/HCPCS: 36415; 36569; 71045; 76937; 80048; 80053; 82248; 82607; 82728; 82746; 83010; 83540; 83550; 83615; 83735; 84100; 84702; 85007; 85025; 85044; 85660; 86703; 86850; 86870; 86900; 86901; 86904; 86920; 87040; 87070; 87075; 87181; 87205; 93306; 94003; 94150; C9399; J2250; J7030